=== PATIENT | male | born 1970 | race Caucasian/White ===

== ENCOUNTER 2016-12-18 12:57 | Observation (INO) | payer OTHER ==
[2016-12-18] MEDS ORDERED: ASPIRIN 81 MG TABLET, CHEWABLE PO ONE (12:58)
--- NOTE | 2016-12-18 13:05 | ER Document Report ---
ED General - General Chief Complaint: Chest Pain Stated Complaint: CHEST PAIN Mode of Arrival: Medic Information source: Patient Notes: 46 yr old male with hx of stent placement in august presents with complaitns of midsternal chest pressure resolved with nitro x3. pt is on plavix , denies nay fevers or chills. TRAVEL OUTSIDE OF THE [place] IN LAST 30 DAYS: No - HPI Onset: Just prior to arrival Onset/Duration: Sudden Quality of pain: Pressure Severity: Mild Pain Level: 1 Associated symptoms: Chest pain, Shortness of breath Exacerbated by: Denies Relieved by: Denies Similar symptoms previously: Yes Recently seen / treated by doctor: Yes - Related Data Allergies/Adverse Reactions: carbamazepine [From Tegretol] Allergy (Verified 12/18/16 13:00) phenobarbital Allergy (Verified 12/18/16 13:00) Past Medical History - Social History Smoking Status: Never Smoker Cigarette use (# per day): No Chew tobacco use (# tins/day): No Smoking Education Provided: No Family History: CAD Patient has suicidal ideation: No Patient has homicidal ideation: No Renal/ Medical History: Denies: Hx Peritoneal Dialysis Review of Systems - Review of Systems Notes: REVIEW OF SYSTEMS: CONSTITUTIONAL : Denies fever, chills, or sweats. Denies recent illness. EENT: Denies eye, ear, throat, or mouth pain or symptoms. Denies nasal or sinus congestion or discharge. Denies throat, tongue, or mouth swelling or difficulty swallowing. CARDIOVASCULAR: Admits to chest pain RESPIRATORY: Admits to shortness of breath GASTROINTESTINAL: Denies abdominal pain or distention. Denies nausea, vomiting , or diarrhea. Denies blood in vomitus, stools, or per rectum. Denies black, tarry stools. Denies constipation. GENITOURINARY: Denies difficulty urinating, painful urination, burning, frequency, blood in urine, or discharge. MUSCULOSKELETAL: Denies back or neck pain or stiffness. Denies joint pain or swelling. SKIN: Denies rash, lesions or sores. HEMATOLOGIC : Denies easy bruising or bleeding. LYMPHATIC: Denies swollen, enlarged glands. NEUROLOGICAL: Denies confusion or altered mental status. Denies passing out or loss of consciousness. Denies dizziness or lightheadedness. Denies headache. Denies weakness or paralysis or loss of use of either side. Denies problems with gait or speech. Denies sensory loss, numbness, or tingling. Denies seizures. PSYCHIATRIC: Denies anxiety or stress. Denies depression, suicidal ideation, or homicidal ideation. ALL OTHER SYSTEMS REVIEWED AND NEGATIVE. Dictation was performed using [employer] recognition software PHYSICAL EXAMINATION: GENERAL: Well-appearing, well-nourished and in no acute distress. HEAD: Atraumatic, normocephalic. EYES: Pupils equal round and reactive to light, extraocular movements intact, sclera anicteric, conjunctiva are normal. ENT: Nares patent, oropharynx clear without exudates. Moist mucous membranes. NECK: Normal range of motion, supple without lymphadenopathy LUNGS: Breath sounds clear to auscultation bilaterally and equal. No wheezes rales or rhonchi. HEART: Regular rate and rhythm without murmurs ABDOMEN: Soft, nontender, nondistended abdomen. No guarding, no rebound. No masses appreciated. Musculoskeletal: Normal range of motion, no pitting or edema. No cyanosis. NEUROLOGICAL: Cranial nerves grossly intact. Normal speech, normal gait. Normal sensory, motor exams PSYCH: Normal mood, normal affect. SKIN: Warm, Dry, normal turgor, no rashes or lesions noted. Physical Exam - Vital signs Vitals: Pulse Ox 100 12/18/16 12:57 Course - Re-evaluation Re-evalutation: 12/18/16 13:58 Cardiac enzymes EKG no no acute abnormality no chest pain is noted at this time I will observe patient in the hospital - Vital Signs Vital signs: Temp Pulse Resp BP Pulse Ox 97.8 F 100 12/18/16 12:59 12/18/16 12:57 - Laboratory Result Diagrams: 12/18/16 13:00 12/18/16 13:00 Laboratory results interpreted by me: 12/18/16 12/18/16 13:00 13:00 RBC 4.29 L Total Protein 6.0 L - Diagnostic Test Radiology reviewed: Image reviewed, Reports reviewed - EKG Interpretation by Me EKG shows normal: Sinus rhythm, Heath, Intervals, QRS Complexes Discharge - Discharge Clinical Impression: Chest pain Qualifiers: Chest pain type: unspecified Qualified Code(s): R07.9 - Chest pain, unspecified CAD (coronary artery disease) Qualifiers: Coronary Disease-Associated Artery/Lesion type: unspecified vessel or lesion type [place] vs. transplanted heart: [place] heart Associated angina: without angina Qualified Code(s): I25.10 - Atherosclerotic heart disease of [place] coronary artery without angina pectoris Condition: Stable Disposition: ADMITTED OBSERVATION Admitting Provider: Hospitalist Unit Admitted: Telemetry
[2016-12-18 13:11] LABS: ABSOLUTE EOSINOPHILS # (AUTO) 0.1 10^3/uL (0.0-0.6); ABSOLUTE LYMPHOCYTES (AUTO) 1.8 10^3/uL (0.5-4.7); ABSOLUTE MONOCYTES (AUTO) 0.6 10^3/uL (0.1-1.4); ABSOLUTE NEUT (AUTO) 5.4 10^3/uL (1.7-8.2); BASOPHILS % (AUTO) 0.6 % (0-2); EOSINOPHILS % (AUTO) 1.6 % (0-6); HEMATOCRIT 40.7 % (37.9-51.0); HGB HCT DIFFERENCE 1.3; LYMPHOCYTES % (AUTO) 22.6 % (13-45); MEAN CORPUSCULAR HEMOGLOBIN 32.6 pg (27.0-33.4); MEAN CORPUSCULAR HGB CONC 34.3 g/dL (32.0-36.0); MEAN CORPUSCULAR VOLUME 95 fl (80-97); MONOCYTES % (AUTO) 7.8 % (3-13); RED BLOOD COUNT 4.29 10^6/uL (4.35-5.55); RED CELL DISTRIBUTION WIDTH 13.2 % (11.5-14.0); SEGMENTED NEUTROPHILS % (AUTO) 67.4 % (42-78)
[2016-12-18 13:23] LABS: ALANINE AMINOTRANSFERASE 37 U/L (21-72); ALBUMIN 4.1 g/dL (3.5-5.0); ALKALINE PHOSPHATASE 66 U/L (38-126); ANION GAP 12 (5-19); ASPARTATE AMINO TRANSFERASE 17 U/L (17-59); BILIRUBIN,DIRECT 0.3 mg/dL (0.0-0.4); BILIRUBIN,TOTAL 0.4 mg/dL (0.2-1.3); BLOOD UREA NITROGEN 11 mg/dL (7-20); CALCIUM 9.6 mg/dL (8.4-10.2); CARBON DIOXIDE 23 mmol/L (22-30); CHLORIDE 107 mmol/L (98-107); CREATINE KINASE 147 U/L (55-170); CREATININE RESULT 0.54 mg/dL (0.52-1.25); GLUCOSE 110 mg/dL (75-110); POTASSIUM 4.2 mmol/L (3.6-5.0); SODIUM 142.2 mmol/L (137-145)
[2016-12-18 13:35] LABS: CREATINE KINASE MB 1.43 ng/mL (<4.55)
[2016-12-18 13:38] LABS: TROPONIN I < 0.012 ng/mL
--- NOTE | 2016-12-18 14:14 | RADIOLOGY REPORT (SQ) ---
EXAM DESCRIPTION: CHEST SINGLE VIEW COMPLETED DATE/TIME: 12/18/2016 1:55 pm REASON FOR STUDY: bed 1 cp COMPARISON: None. EXAM PARAMETERS: NUMBER OF VIEWS: One view. TECHNIQUE: Single frontal radiographic view of the chest acquired. RADIATION DOSE: NA LIMITATIONS: None. FINDINGS: LUNGS AND PLEURA: No opacities, masses or pneumothorax. No pleural effusion. MEDIASTINUM AND HILAR STRUCTURES: No masses. Contour normal. HEART AND VASCULAR STRUCTURES: Heart normal in size. Normal vasculature. BONES: No acute findings. HARDWARE: None in the chest. OTHER: No other significant finding. IMPRESSION: NO ACUTE RADIOGRAPHIC FINDING IN THE CHEST. TECHNICAL DOCUMENTATION: JOB ID: [id number]
--- NOTE | 2016-12-18 14:43 | RADIOLOGY REPORT (SQ) ---
EXAM DESCRIPTION: CTA CHEST COMPLETED DATE/TIME: 12/18/2016 2:36 pm REASON FOR STUDY: chest pain, recent travel COMPARISON: None. TECHNIQUE: CT scan of the chest performed using helical scanning technique with dynamic intravenous contrast injection. Images reviewed with lung, soft tissue and bone windows. Reconstructed coronal and sagittal MPR images reviewed. Additional 3 dimensional post-processing performed to develop Maximal Intensity Projection images (LA P). All images stored on PACS. All CT scanners at this facility use dose modulation, iterative reconstruction, and/or weight based d osing when appropriate to reduce radiation dose to as low as reasonably achievable (ALARA). [facility]: Dose Right [facility]: CareDose [facility]: Dose Right [facility]: Teradose 4D [facility]: Smart Technologies CONTRAST TYPE AND DOSE: Information not provided. Contrast bolus optimized for the pulmonary arteries. Not diagnostic for the aorta. RENAL FUNCTION: None required. The patient is less than 50 years old. RADIATION DOSE: Up-to-date CT equipment and radiation dose reduction techniques were employed. CTDIv ol: 16.5 - 18.1 mGy. DLP: 649 mGy-cm. . LIMITATIONS: None. FINDINGS: LUNGS AND PLEURA: No masses, infiltrates, pneumothorax. No pleural effusions, calcificati ons. AORTA AND GREAT VESSELS: No aneurysm. Contrast bolus not optimized for the aorta. HEART: No pericardial effusion. Probable coronary artery stents. PULMONARY ARTERIES: No emboli visualized in the main pulmonary arteries or the segmental branches. HILAR AND MEDIASTINAL STRUCTURES: No identified masses or abnormal nodes. HARDWARE: None in the chest. UPPER ABDOMEN: No significant findings. Limited exam. THYROID AND OTHER SOFT TISSUES: No masses. No adenopathy. BONES: No acute or significant finding. 3D MIPS: Confirm above findings. OTHER: No other significant finding. IMPRESSION: UNREMARKABLE CTA OF THE CHEST. NO PULMONARY EMBOLI. COMMENT: Quality ID # [id number]: Final reports with documentation of one or more dose reduction techniques (e.g., Automated exposure control, adjustment of the mA and/or kV according to patient size, use of iterative reconstruction technique) TECHNICAL DOCUMENTATION: JOB ID: [id number] [employer]- All Rights Reserved
[2016-12-18] MEDS ORDERED: ACETAMINOPHEN 325 MG TABLET PO PRN (16:54)
[2016-12-18] MEDS ORDERED: INFLUENZA ADLT QUAD (36MOS+) 2017-18 VAC 0.5 ML SYR IM PRN (16:54)
--- NOTE | 2016-12-18 16:55 | EKG REPORT ---
SEVERITY:- ABNORMAL ECG - SINUS RHYTHM INCOMPLETE RIGHT BUNDLE BRANCH BLOCK INFERIOR INFARCT, AGE INDETERMINATE : Confirmed by: Georgina Deluna MD 18-Dec-2016 16:55:04
[2016-12-18] MEDS ORDERED: ONDANSETRON HCL INJ/PF 4 MG/2 ML SDV IV PRN (17:07)
[2016-12-18] MEDS ORDERED: NITROGLYCERIN 0.4 MG/TAB 25 TAB/BOTTLE SL PRN (17:11)
--- NOTE | 2016-12-18 17:24 | PDOC H&P ---
History of Present Illness Admission Date/PCP: 12/18/16 15:06 NO LOCALMD Patient complains of: Chest pain History of Present Illness: MYRNA MILTON is a 46 year old male, with known coronary artery disease recently had a stent done 6 weeks ago in [place] presents to the hospital with chest pain that happened yesterday. The patient was working with a lot of physical work moving trash apparently started having pain on the left side of the chest radiating to the left upper extremity. There is associated mild shortness of breath and some sweating. No palpitation nausea or vomiting. No dizziness. No coughing. There is likewise no pleurisy. Patient went home and took nitroglycerin and the pain went away. Patient the following morning was concerned about what happened and therefore presents to the emergency room for evaluation. Patient was then referred for admission. There is no chills or fever associated. No trauma noted as well. Past Medical History Cardiac Medical History: Reports: Myocardial Infarction, Hyperlipidema Neurological Medical History: Reports: Seizures Musculoskeltal Medical History: Reports: Arthritis Past Surgical History Past Surgical History: Reports: Cardiac Catheterization, Orthopedic Surgery - Knee surgery, Tonsillectomy Social History Information Source: Patient Smoking Status: Former Smoker Frequency of Alcohol Use: None Hx Recreational Drug Use: No Drugs: None - Advance Directive Resuscitation Status: Full Code Family History Family History: Other - Unknown to the patient Parental Family History Reviewed: Yes - Unknown Children Family History Reviewed: Yes Sibling(s) Family History Reviewed.: Yes Medication/Allergy Home Medications: Aspirin [Ecotrin 81 mg EC Tablet] 81 mg PO DAILY 12/18/16 Atorvastatin Calcium [Lipitor 80 mg Tablet] 80 mg PO QPM 12/18/16 Cholecalciferol (Vitamin D3) [Vitamin D3 1000 Unit Tablet] 2,000 unit PO DAILY 12/18/16 Clopidogrel Bisulfate [Plavix 75 mg Tablet] 75 mg PO DAILY 12/18/16 Cyanocobalamin (Vitamin B-12) [Vitamin B-12 1000 mcg Tablet] 1,000 mcg PO DAILY 12/18/16 Metoprolol Tartrate [Lopressor 50 mg Tablet] 25 mg PO Q12 12/18/16 Phenytoin Sodium Extended [Dilantin 100 mg Capsule.er] 200 mg PO QAM 12/18/16 Phenytoin Sodium Extended [Dilantin 100 mg Capsule.er] 300 mg PO QHS 12/18/16 Allergies/Adverse Reactions: carbamazepine [From Tegretol] Allergy (Verified 12/18/16 13:00) phenobarbital Allergy (Verified 12/18/16 13:00) Review of Systems Constitutional: ABSENT: chills, fever(s), headache(s), weight gain, weight loss Eyes: ABSENT: visual disturbances Ears: ABSENT: hearing changes Nose, Mouth, and Throat: ABSENT: mouth pain, sore throat Cardiovascular: PRESENT: chest pain. ABSENT: dyspnea on exertion, edema, orthropnea, palpitations Respiratory: PRESENT: dyspnea. ABSENT: cough, hemoptysis, sputum Gastrointestinal: ABSENT: abdominal pain, bloating, constipation, diarrhea, hematemesis, hematochezia, melena, nausea, vomiting Genitourinary: ABSENT: dysuria, hematuria Musculoskeletal: ABSENT: back pain, joint swelling Integumentary: ABSENT: pruritus, rash, wounds Neurological: ABSENT: abnormal gait, abnormal speech, confusion, dizziness, focal weakness, syncope Psychiatric: ABSENT: anxiety, depression, homidical ideation, suicidal ideation Endocrine: ABSENT: cold intolerance, heat intolerance, polydipsia, polyphagia, polyuria Hematologic/Lymphatic: ABSENT: easy bleeding, easy bruising Physical Exam Vital Signs: Temp Pulse Resp BP Pulse Ox 97.3 F 72 15 109/65 100 12/18/16 16:01 12/18/16 16:01 12/18/16 16:01 12/18/16 16:01 12/18/16 16:01 Intake & Output 12/17/16 12/18/16 12/19/16 06:59 06:59 06:59 Weight 112.5 kg General appearance: PRESENT: no acute distress, well-developed, well-nourished Head exam: PRESENT: atraumatic, normocephalic Eye exam: PRESENT: conjunctiva pink, EOMI, PERRLA. ABSENT: scleral icterus Ear exam: PRESENT: normal external ear exam Mouth exam: PRESENT: moist, neck supple, tongue midline Throat exam: ABSENT: post pharyngeal erythema, tonsillar erythema Neck exam: ABSENT: carotid bruit, JVD, lymphadenopathy, thyromegaly Respiratory exam: PRESENT: clear to auscultation lorne, unlabored. ABSENT: rales , rhonchi, wheezes Cardiovascular exam: PRESENT: RRR. ABSENT: diastolic murmur, rubs, systolic murmur Pulses: PRESENT: normal dorsalis pedis pul Vascular exam: PRESENT: normal capillary refill GI/Abdominal exam: PRESENT: normal bowel sounds, soft. ABSENT: distended, guarding, mass, organolmegaly, rebound, tenderness Rectal exam: PRESENT: deferred Extremities exam: PRESENT: full ROM. ABSENT: calf tenderness, clubbing, pedal edema Neurological exam: PRESENT: alert, awake, oriented to person, oriented to place , oriented to time, oriented to situation Psychiatric exam: PRESENT: appropriate affect, normal mood. ABSENT: homicidal ideation, suicidal ideation Skin exam: PRESENT: dry, intact, warm. ABSENT: cyanosis, rash Results Impressions: Chest X-Ray 12/18/16 12:58 IMPRESSION: NO ACUTE RADIOGRAPHIC FINDING IN THE CHEST. Chest/Abdomen CTA 12/18/16 13:56 IMPRESSION: UNREMARKABLE CTA OF THE CHEST. NO PULMONARY EMBOLI. Assessment & Plan - Diagnosis (1) Chest pain Qualifiers: Chest pain type: unspecified Qualified Code(s): R07.9 - Chest pain, unspecified Is this a current diagnosis for this admission?: Yes (2) CAD (coronary artery disease) Qualifiers: Coronary Disease-Associated Artery/Lesion type: unspecified vessel or lesion type [place] vs. transplanted heart: [place] heart Associated angina: without angina Qualified Code(s): I25.10 - Atherosclerotic heart disease of [place] coronary artery without angina pectoris Is this a current diagnosis for this admission?: Yes (3) Hyperlipidemia Qualifiers: Hyperlipidemia type: unspecified Qualified Code(s): E78.5 - Hyperlipidemia , unspecified Is this a current diagnosis for this admission?: Yes (4) Seizure disorder Is this a current diagnosis for this admission?: Yes - Time Time Spent: 50 to 70 Minutes - Plan Summary Plan Summary: The patient will be admitted for observation. Serial enzymes will be obtained if negative we will proceed with a stress test. I will continue the patient's antiplatelet therapy, and add as as needed nitroglycerin . Supplemental oxygen will be given. DVT prophylaxis with Lovenox will be placed. Further testing depends on the initial evaluation as outlined above.
[2016-12-18 18:03] LABS: CREATINE KINASE MB 1.34 ng/mL (<4.55)
[2016-12-18 18:05] LABS: TROPONIN I < 0.012 ng/mL
[2016-12-18] MEDS: ATORVASTATIN CALCIUM 80 MG TABLET PO SCH (18:05)
[2016-12-18] MEDS: DOCUSATE SODIUM 100 MG CAPSULE PO SCH (18:05)
[2016-12-18] MEDS: METOPROLOL TARTRATE 50 MG TABLET PO SCH (21:20)
[2016-12-18] MEDS ORDERED: PHENYTOIN SODIUM EXTENDED 100 MG CAPSULE PO SCH (22:00)
[2016-12-19 00:01] LABS: CREATINE KINASE MB 1.13 ng/mL (<4.55)
[2016-12-19 00:04] LABS: TROPONIN I < 0.012 ng/mL
[2016-12-19] MEDS ORDERED: LANSOPRAZOLE 30 MG TAB.RAP.DR PO SCH (06:00)
[2016-12-19] MEDS ORDERED: PHENYTOIN SODIUM EXTENDED 100 MG CAPSULE PO SCH (08:00)
[2016-12-19] MEDS ORDERED: ENOXAPARIN SODIUM INJ 40 MG/0.4 ML DISP.SYRIN SUBCUT SCH (10:00)
[2016-12-19] MEDS ORDERED: ASPIRIN 81 MG TABLET, ENT COATED PO SCH (10:00)
[2016-12-19] MEDS ORDERED: CLOPIDOGREL BISULFATE 75 MG TABLET PO SCH (10:00)
[2016-12-19] MEDS: DOCUSATE SODIUM 100 MG CAPSULE PO SCH ×2 (10:09→17:37)
[2016-12-19] MEDS: METOPROLOL TARTRATE 50 MG TABLET PO SCH (10:10)
[2016-12-19] MEDS ORDERED: REGADENOSON INJ 0.4 MG/5 ML DISP.SYRIN IV ONE (10:35)
[2016-12-19] MEDS ORDERED: AMINOPHYLLINE INJ/PF 250 MG/10 ML SDV IV ONE (10:35)
[2016-12-19] MEDS ORDERED: PHENYTOIN SODIUM EXTENDED 100 MG CAPSULE PO ONE (12:30)
--- NOTE | 2016-12-19 13:29 | DRAGON STRESS TEST REPORT ---
INTRAVENOUS LEXISCAN CARDIOLITE STRESS TEST USING SINGLE PHOTON EMMISION COMPUTERIZED TOMOGRAPHIC. DATE OF PROCEDURE: December 19, 2016 INDICATION : Chest pain CARDIAC RISK FACTORS: Known CAD with stent placement, hypertension, dyslipidemia RESTING EKG: Sinus rhythm, incomplete right bundle branch block pattern, abnormal Q waves inferior lead suggestive of prior inferior myocardial infarction. STRESS EKG: No significant changes noted with LexiScan bolus REASON FOR TERMINATION: Protocol. PROCEDURE REPORT: Baseline heart rate 68 beats per minute with blood pressure of 130/76. Patient had no significant complaints. Heart rate at 2 minutes post bolus 107 with a blood pressure of 141/72. 3 minutes post bolus heart rate 81 with blood pressure of 140/67. No significant EKG changes were noted. Patient had no significant complaints during the procedure or postprocedure except for transient chest pain patient was also noted to have a seizure in the immediate recovery. No EKG changes or any significant cardiac dysrhythmia were however noted, so there was no symptom correlation with cardiac dysrhythmia or any EKG changes.. Patient injected with Aminophyllin 75 mg at 3 minutes or later after Lexiscan bolus. CONCLUSIONS: Normal EKG and hemodynamic response to IV LexiScan. NUCLEAR DATA: At rest the patient was given 14.97 millicuries of technetium 99 sestamibi injected intravenously. As per protocol rest gated SPECT images were obtained. Subsequently the patient was given intravenous LexiScan at a dose of 0.4 mg in 5 mL intravenously, followed by flush with normal saline. Subsequently the stress dose of 44.7 millicuries of technetium 99 sestamibi was injected intravenously. As per protocol stress gated images were obtained. NUCLEAR INTERPRETATION: Both raw and processed data were used for interpretation. Visual, qualitative, computer-generated quantitative data was used. There was good myocardial uptake of technetium compound. Motion artifact and soft tissue attenuations were noted. Increased visceral uptake was noted. No definitive areas of transient perfusion defect noted. No definitive areas of fixed perfusion defect or scars noted, except for a mild fixed defect in the mid inferior wall suggestive of a mild scar. EKG gated imaging showed LV EF at 47 %, rest and stress gated EF similar visually. Mild mid inferior wall hypokinesia noted. T. I D. ratio was 1.03. Lung heart ratio noted to be within normal limits 0.35. No significant extracardiac and abnormal radiotracer activities were noted. RV free wall uptake was noted to be WNL. IMPRESSION: Also refer to comments under nuclear interpretation. Also test results needs to be interpreted in the context of pretest probability. 1. There is no definitive scintigraphic evidence of LexiScan induced myocardial ischemia. 2. Mild fixed defect noted in the mid inferior wall suggestive of a mild myocardial infarction/scar, involving the mid inferior wall. 3. EKG gated imaging shows left ventricular ejection fraction of approximately 47 % With mild mid inferior wall hypokinesia. 4. Clinical correlation requested as occasionally worse disease or balanced ischemia could be missed. In approximately 10% of the cases Lexiscan may not cause adequate vasodilatory stress. RECOMMENDATIONS: Aggressive risk factor modification, medical therapy. Clinical correlation with echocardiogram derived ejection fraction. Inability to exercise by itself can lead to increased cardiovascular event risks. Consider cardiology consultation and or follow-up if clinically indicated. I AM AVAILABLE FOR CARDIOLOGY CONSULTATION AND FOLLOWUP IF REQUESTED BY PMD KARLOS King M.D. Survey Research Manager braiding machine tender, Board certified in cardiovascular diseases, Nuclear cardiology, Echocardiography Cardiac CT and cardiac MRI Ph. [phone] [facility] CENTERJamie
[2016-12-19] MEDS ORDERED: ONDANSETRON HCL INJ/PF 4 MG/2 ML SDV IV PRN (15:30)
[2016-12-19] MEDS ORDERED: INFLUENZA ADLT QUAD (36MOS+) 2017-18 VAC 0.5 ML SYR IM PRN (15:30)
--- NOTE | 2016-12-19 16:59 | PDOC DISCHARGE SUMMARY ---
General - Admit/Disc Date/PCP Admission Date/Primary Care Provider: 12/18/16 16:54 NO LOCALMD Discharge Date: 12/19/16 - Discharge Diagnosis (1) Chest pain Is this a current diagnosis for this admission?: Yes (2) CAD (coronary artery disease) Is this a current diagnosis for this admission?: Yes (3) Hyperlipidemia Is this a current diagnosis for this admission?: Yes (4) Seizure disorder Is this a current diagnosis for this admission?: Yes - Additional Information Resuscitation Status: Full Code Discharge Diet: Cardiac, Diabetic Discharge Activity: Activity As Tolerated, Balance Activity w/Rest Home Medications: Aspirin [Ecotrin 81 mg EC Tablet] 81 mg PO DAILY 12/18/16 Atorvastatin Calcium [Lipitor 80 mg Tablet] 80 mg PO QPM 12/18/16 Cholecalciferol (Vitamin D3) [Vitamin D3 1000 Unit Tablet] 2,000 unit PO DAILY 12/18/16 Clopidogrel Bisulfate [Plavix 75 mg Tablet] 75 mg PO DAILY 12/18/16 Cyanocobalamin (Vitamin B-12) [Vitamin B-12 1000 mcg Tablet] 1,000 mcg PO DAILY 12/18/16 Metoprolol Tartrate [Lopressor 50 mg Tablet] 25 mg PO Q12 12/18/16 Phenytoin Sodium Extended [Dilantin 100 mg Capsule.er] 200 mg PO QAM 12/18/16 Phenytoin Sodium Extended [Dilantin 100 mg Capsule.er] 300 mg PO QHS 12/18/16 Lansoprazole [Prevacid 30 mg Odt Tablet] 30 mg PO Q6AM #30 tab.rap 12/19/16 Additional Information: No driving or engaging in heavy physical activity until evaluated by a physician and Dilantin level is therapeutic History of Present Illness Patient complains of: Chest pain History of Present Illness: MYRNA MILTON is a 46 year old male, with known coronary artery disease recently had a stent done 6 weeks ago in [place] presents to the hospital with chest pain that happened yesterday. The patient was working with a lot of physical work moving trash apparently started having pain on the left side of the chest radiating to the left upper extremity. There is associated mild shortness of breath and some sweating. No palpitation nausea or vomiting. No dizziness. No coughing. There is likewise no pleurisy. Patient went home and took nitroglycerin and the pain went away. Patient the following morning was concerned about what happened and therefore presents to the emergency room for evaluation. Patient was then referred for admission. There is no chills or fever associated. No trauma noted as well. Hospital Course Hospital Course: The patient was admitted to telemetry under observation. Cardiac enzymes were obtained and they were negative for myocardial infarction. Supplemental oxygen was given. Patient was continued on his antiplatelet therapy and cardiac medications. The patient eventually had a stress test done showing no reversible ischemia. His course was noted for brief episode of seizure as he missed this medication Dilantin. An extra dose was given, no further seizure was noted after. Patient was offered to stay in the hospital for another 24 hours to recheck Dilantin level but he refused. He wanted to go home and stated that he does not have a license to drive and does not operate any vehicle or heavy equipment or engage in heavy physical work. He was advised not to operate any heavy equipment nor drive or engage in heavy physical activity or work. He was advised to have the level checked outpatient with his primary care physician on next visit. Physical Exam Vital Signs: Temp Pulse Resp BP Pulse Ox 98.1 F 79 18 107/67 97 12/19/16 16:14 12/19/16 16:14 12/19/16 16:14 12/19/16 16:14 12/19/16 16:14 Intake & Output 12/18/16 12/19/16 12/20/16 06:59 06:59 06:59 Intake Total 0 Balance 0 Weight 112.5 kg General appearance: PRESENT: no acute distress, cooperative Head exam: PRESENT: normocephalic Eye exam: PRESENT: EOMI Mouth exam: PRESENT: moist, neck supple Neck exam: ABSENT: JVD Respiratory exam: PRESENT: clear to auscultation lorne. ABSENT: rhonchi, wheezes Cardiovascular exam: PRESENT: RRR. ABSENT: gallop GI/Abdominal exam: PRESENT: soft. ABSENT: distended, tenderness Extremities exam: ABSENT: pedal edema Neurological exam: PRESENT: alert, awake, oriented to situation Skin exam: PRESENT: dry, warm. ABSENT: cyanosis Results Laboratory Results: 12/18/16 12/18/16 12/18/16 17:10 17:10 23:24 Creatine Kinase 112 105 CK-MB (CK-2) 1.34 Troponin I < 0.012 12/18/16 23:24 Creatine Kinase CK-MB (CK-2) 1.13 Troponin I < 0.012 Impressions: Chest X-Ray 12/18/16 12:58 IMPRESSION: NO ACUTE RADIOGRAPHIC FINDING IN THE CHEST. Chest/Abdomen CTA 12/18/16 13:56 IMPRESSION: UNREMARKABLE CTA OF THE CHEST. NO PULMONARY EMBOLI. Qualifiers PATEINT BEING DISCHARGED WITH ANY OF THE FOLLOWING DIAGNOSIS?: No Plan Discharge Plan: Follow-up with primary care physician in 1 week. Follow-up with Dr. Leyva in 2 weeks. Time Spent: Less than 30 Minutes
[2016-12-19 17:12] VITALS: BP 109/65
[2016-12-19] MEDS: ATORVASTATIN CALCIUM 80 MG TABLET PO SCH (17:37)
[2016-12-20] MEDS ORDERED: LANSOPRAZOLE 30 MG TAB.RAP.DR PO SCH (06:00)
== END 2016-12-19 18:20 | disposition home or self-care (01) ==
LOC: ER 12:57 → EH 15:06 → UNDOADMOB 15:06 → 5 15:48 → EH 15:48 → 5 16:54
PROC: 3E0234Z Introduction of Serum, Toxoid and Vaccine into Muscle, Percutaneous Approach (ICD-10-PCS; principal; 2016-12-19)
DX: R07.9 Chest pain, unspecified (principal); I25.10 Atherosclerotic heart disease of native coronary artery without angina pectoris; E78.5 Hyperlipidemia, unspecified; G40.909 Epilepsy, unspecified, not intractable, without status epilepticus; R06.00 Dyspnea, unspecified; I25.2 Old myocardial infarction; Z79.899 Other long term (current) drug therapy; Z79.82 Long term (current) use of aspirin; Z79.02 Long term (current) use of antithrombotics/antiplatelets; Z23 Encounter for immunization; Z87.891 Personal history of nicotine dependence; Z82.49 Family history of ischemic heart disease and other diseases of the circulatory system
CPT/HCPCS: 93005; 99285; 36415; 82553; 82550; 80185; 85025; 80053; 84484; 93017; 71010; 78452; 71275; 90686; 93010; G0378 ×2; A9500; J2785; J1650; J3490 ×2; J0280; Q9969

== ENCOUNTER 2017-06-09 23:37 | Emergency (ER) | payer OTHER ==
[2017-06-10] MEDS ORDERED: NITROGLYCERIN 2% OINTMENT 1 GM PACKET TP ONE (00:06)
--- NOTE | 2017-06-10 00:07 | ER Document Report ---
ED Cardiac - General Stated Complaint: CHEST PAIN Time Seen by Provider: 06/09/17 23:49 Notes: Patient is a 47-year-old male with a past medical history significant for MD in October with a stent placed who presents emergency department with a chief complaint of chest pain. Patient states that this started this evening approximately 45 minutes prior to calling EMS. He states that he was not doing any particular disagreement with sudden onset tightness with diaphoresis and left arm pain radiating to his hand. States that the pain in his arms but a 5 out of 5 in his chest tightness 8 out of 5 in severity. States that he took 2 sublingual nitro which brought his pain from a 5 out of 5 to 3 out of 5 and 911 instruction to take 4 baby aspirin. At this time he states that his pain is approximately a 1 or 2 out of 5. That is not pain-free. He denies any associated nausea, cough, dyspnea on exertion. Denies any recent fevers or chills, upper respiratory illness. Denies any chest wall tenderness. Recent hospital admission for chest pain evaluation December 2016 with a stress test that revealed inferior wall previous infarct and ejection fraction 47%. Also had a CTA of the chest was negative for PE PCP is [facility] in cardiology is with the [facility] in [place] Past medical history significant for coronary artery disease with history of stable angina with home sublingual nitro, hypertension, hyperlipidemia, history of seizures versus pseudoseizures recently taken off his Dilantin Past surgical history admits to previous cath back in October, tonsils and adenoids Social history admits to former tobacco user and quit in 2008, former alcohol user in the for about 18 months. 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 TRAVEL OUTSIDE OF THE [place] IN LAST 30 DAYS: No - Related Data Allergies/Adverse Reactions: carbamazepine [From Tegretol] Allergy (Verified 12/18/16 13:00) phenobarbital Allergy (Verified 12/18/16 13:00) Past Medical History - Social History Smoking Status: Former Smoker Family History: Other - Unknown to the patient - Past Medical History Cardiac Medical History: Reports: Hx Heart Attack, Hx Hypercholesterolemia, Hx Hypertension Neurological Medical History: Reports: Hx Seizures Renal/ Medical History: Denies: Hx Peritoneal Dialysis Musculoskeltal Medical History: Reports Hx Arthritis Past Surgical History: Reports: Hx Cardiac Catheterization, Hx Cardiac Surgery, Hx Orthopedic Surgery - Knee surgery, Hx Tonsillectomy - Immunizations Hx Diphtheria, Pertussis, Tetanus Vaccination: Yes Physical Exam - Vital signs Vitals: Resp Pulse Ox 12 99 06/09/17 23:54 06/09/17 23:54 - Notes Notes: PHYSICAL EXAM GENERAL: Alert, interacts well. HEAD: Normocephalic, atraumatic. EYES: Pupils equal, round, and reactive to light. Extraocular movements intact. ENT: Oral mucosa moist, tongue midline. NECK: Full range of motion. Supple. Trachea midline. LUNGS: Clear to auscultation bilaterally, no wheezes, rales, or rhonchi. No respiratory distress. HEART: Regular rate and rhythm. No murmurs, gallops, or rubs. ABDOMEN: Soft, nondistended, nontender. No guarding, rebound, or rigidity.. Bowel sounds present in all 4 quadrants. EXTREMITIES: Moves all 4 extremities spontaneously. No edema, radial and dorsalis pedis pulses 2/4 bilaterally. No cyanosis. NEUROLOGICAL: Alert and oriented x4. Normal speech. PSYCH: Normal affect, normal mood. SKIN: Warm, dry, normal turgor. No rashes or lesions noted. Course - Re-evaluation Re-evalutation: 06/10/17 05:25 Patient is very well in appearance, vitals within normal limits. Presentation is consistent with stable angina. HEART score of 4 without EKG evidence of STEMI. Complete resolution of his pain with combination of sublingual nitro x2, 324mg asa [employer] and nitro paste here in the ED. PE seems unlikely given clinical history, absence of tachycardia or dyspnea. Well's score of 0. PERC negative. CXR without evidence of pneumothorax or pneumonia. No widened mediastinum. Aortic dissection also seems unlikely given history, symmetric pulses, CXR, and vitals. Patients response to nitro and clinical history indicates need for an additional stress test despite negative results in 12/2016 (evidence of inferior wall previous MD/scar tissue). Patient is however declining admission and [facility]. Discussed concern that his risk factors, clinical history and improvement with ED treatments with a HEART score of 4 indicates risk of 12-16.6% of adverse cardiac event. Patient states he understands and verbally repeated back to me concerns for cardiac event if he leaves. At this time will discharge with return precautions and follow-up recommendations. Verbal discharge instructions given a the bedside and opportunity for questions given. Medication warnings reviewed. Patient is in agreement with this plan and has verbalized understanding of return precautions and the need for primary care follow-up in the next 24-72 hours. - Vital Signs Vital signs: Temp Pulse Resp BP Pulse Ox 97.7 F 14 113/77 96 06/10/17 05:57 06/10/17 05:31 06/10/17 05:31 06/10/17 05:31 - Laboratory Result Diagrams: 06/10/17 00:20 06/10/17 00:20 Laboratory results interpreted by me: 06/10/17 06/10/17 00:20 00:20 RBC 4.34 L Chloride 110 H Glucose 112 H - Diagnostic Test Radiology reviewed: Image reviewed, Reports reviewed - EKG Interpretation by Me EKG shows normal: Sinus rhythm Rate: Normal Rhythm: NSR When compared to previous EKG there are: No significant change Discharge - Discharge Clinical Impression: CAD (coronary artery disease) Qualifiers: Coronary Disease-Associated Artery/Lesion type: unspecified vessel or lesion type [place] vs. transplanted heart: [place] heart Associated angina: with stable angina Qualified Code(s): I25.118 - Atherosclerotic heart disease of [place] coronary artery with other forms of angina pectoris Condition: Stable Disposition: HOME, SELF-CARE Additional Instructions: You were seen today for chest pain. This is related to your heart disease. However, based on your cardiac enzyme testing, chest x-ray, and EKG it does not appear that it is from an immediately life-threatening cause at this time. Although your testing here is normal is critical that you follow-up with your primary care physician for continued evaluation of this chest pain and possible stress testing. I recommended you see your physician within the next 24-48 hours to be evaluated for consideration of a stress test. Please return to emergency department immediately if you have worsening of your chest pain, shortness of breath, vomiting, become unable to exert yourself due to pain or difficulty breathing, you pass out, or have any pain that radiates into your arms, jaw, or back. Please also return if you have any additional symptoms that are concerning to you. Referrals: [facility] [Provider Group] - 06/12/17
[2017-06-10 00:39] LABS: ABSOLUTE BASOPHILS # (AUTO) 0.1 10^3/uL (0.0-0.2); ABSOLUTE EOSINOPHILS # (AUTO) 0.3 10^3/uL (0.0-0.6); ABSOLUTE LYMPHOCYTES (AUTO) 2.6 10^3/uL (0.5-4.7); ABSOLUTE MONOCYTES (AUTO) 0.6 10^3/uL (0.1-1.4); ABSOLUTE NEUT (AUTO) 4.7 10^3/uL (1.7-8.2); BASOPHILS % (AUTO) 0.9 % (0-2); EOSINOPHILS % (AUTO) 3.5 % (0-6); HEMATOCRIT 40.3 % (37.9-51.0); HEMOGLOBIN 13.5 g/dL (13.5-17.0); LYMPHOCYTES % (AUTO) 31.3 % (13-45); MEAN CORPUSCULAR HGB CONC 33.4 g/dL (32.0-36.0); MEAN CORPUSCULAR VOLUME 93 fl (80-97); MONOCYTES % (AUTO) 7.5 % (3-13); PLATELET COUNT 210 10^3/uL (150-450); RED BLOOD COUNT 4.34 10^6/uL (4.35-5.55); RED CELL DISTRIBUTION WIDTH 13.6 % (11.5-14.0); SEGMENTED NEUTROPHILS % (AUTO) 56.8 % (42-78); TOTAL CELLS COUNTED % (AUTO) 100 %; WHITE BLOOD COUNT 8.3 10^3/uL (4.0-10.5)
--- NOTE | 2017-06-10 00:51 | RADIOLOGY REPORT (SQ) ---
EXAM DESCRIPTION: CHEST SINGLE VIEW CLINICAL HISTORY: 47 years Male, chest pain COMPARISON: 10.8.17 NUMBER OF VIEWS/TECHNIQUE: 1/AP LIMITATIONS: None. FINDINGS: Normal lung volume, clear parenchyma, normal cardiac silhouette, and intact bony thorax. IMPRESSION: No acute cardiopulmonary findings.
[2017-06-10 00:57] LABS: ALBUMIN 3.9 g/dL (3.5-5.0); ALKALINE PHOSPHATASE 55 U/L (38-126); ANION GAP 9 (5-19); ASPARTATE AMINO TRANSFERASE 36 U/L (17-59); BILIRUBIN,DIRECT 0.3 mg/dL (0.0-0.4); BILIRUBIN,TOTAL 0.5 mg/dL (0.2-1.3); BLOOD UREA NITROGEN 16 mg/dL (7-20); CALCIUM 9.3 mg/dL (8.4-10.2); CARBON DIOXIDE 24 mmol/L (22-30); CHLORIDE 110 mmol/L (98-107); GLUCOSE 112 mg/dL (75-110); POTASSIUM 3.8 mmol/L (3.6-5.0); TOTAL PROTEIN 6.3 g/dL (6.3-8.2)
[2017-06-10 01:04] LABS: ALANINE AMINOTRANSFERASE 33 U/L (21-72); CREATINE KINASE 76 U/L (55-170)
[2017-06-10 01:15] LABS: TROPONIN I < 0.012 ng/mL
[2017-06-10 05:57] VITALS: BP 113/77
== END 2017-06-10 06:03 | disposition home or self-care (01) ==
LOC: ER 23:37
DX: I25.118 Atherosclerotic heart disease of native coronary artery with other forms of angina pectoris (principal); R07.9 Chest pain, unspecified; I25.2 Old myocardial infarction; R61 Generalized hyperhidrosis; M79.602 Pain in left arm; M79.642 Pain in left hand; I10 Essential (primary) hypertension; Z87.891 Personal history of nicotine dependence
CPT/HCPCS: 36415; 71045; 80053; 82550; 82553; 84484; 85025; 99285

== ENCOUNTER 2017-08-18 18:18 | Inpatient (IN) | payer OTHER ==
--- NOTE | 2017-08-18 18:31 | ER Document Report ---
ED Medical Screen (RME) - General Stated Complaint: POSSIBLE STROKE Time Seen by Provider: 08/18/17 18:26 Mode of Arrival: Medic Information source: Patient, Emergency Med Personnel TRAVEL OUTSIDE OF THE [place] IN LAST 30 DAYS: No - HPI Onset: Just prior to arrival - 1730 Onset/Duration: Sudden Context: Patient presents to the emergency department via EMS for complaints that he was watching TV at approximately 1730 stood up and collapsed. No change in LOC, family reported it was like his legs gave out. Family reported history of GA and high blood pressure EMS reports poor historians. Patient with left-sided weakness left-sided droop. Difficulty speaking. Patient to CT. Stroke protocol initiated. Quality of pain: No pain Associated Symptoms: None - Related Data Allergies/Adverse Reactions: carbamazepine [From Tegretol] Allergy (Verified 12/18/16 13:00) phenobarbital Allergy (Verified 12/18/16 13:00) Past Medical History - Past Medical History Cardiac Medical History: Reports: Hx Heart Attack, Hx Hypercholesterolemia, Hx Hypertension Neurological Medical History: Reports: Hx Seizures Renal/ Medical History: Denies: Hx Peritoneal Dialysis Musculoskeltal Medical History: Reports Hx Arthritis Past Surgical History: Reports: Hx Cardiac Catheterization, Hx Cardiac Surgery, Hx Orthopedic Surgery - Knee surgery, Hx Tonsillectomy - Immunizations Hx Diphtheria, Pertussis, Tetanus Vaccination: Yes History of Influenza Vaccine for 12/2016 - 05/2017 Season: No
--- NOTE | 2017-08-18 18:36 | RADIOLOGY REPORT (SQ) ---
EXAM DESCRIPTION: CT HEAD WITHOUT COMPLETED DATE/TIME: 08/18/2017 6:27 pm REASON FOR STUDY: STROKE ALERT COMPARISON: None. TECHNIQUE: Axial images acquired through the brain without intravenous contrast. Images reviewed wi th bone, brain and subdural windows. Images stored on PACS. All CT scanners at this facility use dose modulation, iterative reconstruction, and/or weight based d osing when appropriate to reduce radiation dose to as low as reasonably achievable (ALARA). [facility]: Dose Right [facility]: CareDose [facility]: Dose Right [facility]: Teradose 4D [facility]: [employer] RADIATION DOSE: mGy. LIMITATIONS: None. FINDINGS: VENTRICLES: Normal size and contour. CEREBRUM: No masses. No hemorrhage. No midline shift. No evidence for acute infarction. Normal gra y/white matter differentiation. No areas of low density in the white matter. CEREBELLUM: No masses. No hemorrhage. No alteration of density. No evidence for acute infarction. EXTRAAXIAL SPACES: No fluid collections. No masses. ORBITS AND GLOBE: No intra- or extraconal masses. Normal contour of globe without masses. CALVARIUM: No fracture. PARANASAL SINUSES: No fluid or mucosal thickening. SOFT TISSUES: No mass or hematoma. OTHER: No other significant finding. IMPRESSION: NORMAL BRAIN CT WITHOUT CONTRAST. EVIDENCE OF ACUTE STROKE: NO. COMMENT: Pertinent positive or negative findings of the imaging study reported as a CRITICAL EXAM t o THE EMERGENCY DEPARTMENT at18:30 on 08/18/2017. Category of Critical Exam: CODE STROKE Quality ID # [id number]: Final reports with documentation of one or more dose reduction techniques (e.g., Au tomated exposure control, adjustment of the mA and/or kV according to patient size, use of iterative reconstruction technique) TECHNICAL DOCUMENTATION: JOB ID: [id number] [employer]- All Rights Reserved Reading location - IP/workstation name: [email or web address]
--- NOTE | 2017-08-18 18:37 | RADIOLOGY REPORT (SQ) ---
EXAM DESCRIPTION: CHEST SINGLE VIEW COMPLETED DATE/TIME: 08/18/2017 6:27 pm REASON FOR STUDY: STROKE ALERT COMPARISON: 06/10/2017 EXAM PARAMETERS: NUMBER OF VIEWS: One view. TECHNIQUE: Single frontal radiographic view of the chest acquired. RADIATION DOSE: NA LIMITATIONS: None. FINDINGS: LUNGS AND PLEURA: Retrocardiac airspace opacity. Lungs and pleural spaces otherwise clear . MEDIASTINUM AND HILAR STRUCTURES: No masses. Contour normal. HEART AND VASCULAR STRUCTURES: Heart normal in size. Normal vasculature. BONES: No acute findings. HARDWARE: None in the chest. OTHER: No other significant finding. IMPRESSION: RETROCARDIAC AIRSPACE OPACITY COULD REPRESENT SUBSEGMENTAL ATELECTASIS, ASPIRATION, OR P NEUMONIA. CORRELATE WITH RESPIRATORY SYMPTOMS. TECHNICAL DOCUMENTATION: JOB ID: [id number] [employer]- All Rights Reserved Reading location - IP/workstation name: [email or web address]
[2017-08-18 18:42] LABS: ABSOLUTE BASOPHILS # (AUTO) 0.1 10^3/uL (0.0-0.2); ABSOLUTE EOSINOPHILS # (AUTO) 0.1 10^3/uL (0.0-0.6); ABSOLUTE LYMPHOCYTES (AUTO) 1.8 10^3/uL (0.5-4.7); ABSOLUTE MONOCYTES (AUTO) 0.5 10^3/uL (0.1-1.4); ABSOLUTE NEUT (AUTO) 5.8 10^3/uL (1.7-8.2); EOSINOPHILS % (AUTO) 1.7 % (0-6); LYMPHOCYTES % (AUTO) 21.5 % (13-45); MEAN CORPUSCULAR HGB CONC 33.5 g/dL (32.0-36.0); MEAN CORPUSCULAR VOLUME 93 fl (80-97); MONOCYTES % (AUTO) 6.4 % (3-13); PLATELET COUNT 244 10^3/uL (150-450); RED BLOOD COUNT 3.88 10^6/uL (4.35-5.55); RED CELL DISTRIBUTION WIDTH 13.6 % (11.5-14.0); SEGMENTED NEUTROPHILS % (AUTO) 69.4 % (42-78); TOTAL CELLS COUNTED % (AUTO) 100 %; WHITE BLOOD COUNT 8.4 10^3/uL (4.0-10.5)
[2017-08-18 18:45] LABS: INTERNATIONAL RATION (INR) 0.99
[2017-08-18 18:46] LABS: PARTIAL THROMBOPLASTIN TIME 26.1 SEC (23.5-35.8)
[2017-08-18 18:48] LABS: PROTHROMBIN TIME 13.6 SEC (11.4-15.4)
[2017-08-18 19:02] LABS: ALANINE AMINOTRANSFERASE 32 U/L (21-72); ALKALINE PHOSPHATASE 57 U/L (38-126); ANION GAP 11 (5-19); ASPARTATE AMINO TRANSFERASE 28 U/L (17-59); BILIRUBIN,DIRECT 0.2 mg/dL (0.0-0.4); BILIRUBIN,TOTAL 0.4 mg/dL (0.2-1.3); BLOOD UREA NITROGEN 11 mg/dL (7-20); CALCIUM 9.5 mg/dL (8.4-10.2); CARBON DIOXIDE 27 mmol/L (22-30); CHLORIDE 106 mmol/L (98-107); CREATINE KINASE 144 U/L (55-170); GLUCOSE 109 mg/dL (75-110); SODIUM 144.4 mmol/L (137-145); TOTAL PROTEIN 6.2 g/dL (6.3-8.2)
[2017-08-18] MEDS ORDERED: ALTEPLASE INJ 100 MG VIAL IV ONE (19:04)
--- NOTE | 2017-08-18 19:08 | ER Document Report ---
ED Neuro Symptoms/Deficit - General Mode of Arrival: Medic Information source: Patient, Emergency Med Personnel Notes: Patient is a 47 year old male with cardiac stents (last placed October of 2016), hypertension and a history of LA presents to the emergency department via EMS complaining of stroke like symptoms onset around 1730 today. According to family , patient was watching TV when he stood up and collapsed. Family denies loss of consciousness and states it appears like the patient's legs gave out. EMS reports left sided facial droop as well as left sided weakness. Patient denies a history of strokes or aneurysms. Patient is currently prescribed Metropolol and Plavix. TRAVEL OUTSIDE OF THE [place] IN LAST 30 DAYS: No <MAGUE KAUFFMAN - Last Filed: 08/19/17 00:13> <SREEDHAR STARK - Last Filed: 08/19/17 00:46> - General Chief Complaint: S/S of Possible Stroke Stated Complaint: POSSIBLE STROKE Time Seen by Provider: 08/18/17 18:26 - Related Data Allergies/Adverse Reactions: cabbage Allergy (Verified 08/18/17 21:34) RAPID HEARTBEAT carbamazepine [From Tegretol] Allergy (Verified 08/18/17 21:34) phenobarbital Allergy (Verified 08/18/17 21:34) Past Medical History - General Information source: Patient, Emergency Med Personnel - Social History Smoking Status: Never Smoker Cigarette use (# per day): No Chew tobacco use (# tins/day): No Smoking Education Provided: No Frequency of alcohol use: None Family History: Other - Unknown to the patient - Past Medical History Cardiac Medical History: Reports: Hx Heart Attack, Hx Hypercholesterolemia, Hx Hypertension, Other - Cardiac stents - placed October 2016 Neurological Medical History: Reports: Hx Seizures Musculoskeltal Medical History: Reports Hx Arthritis Past Surgical History: Reports: Hx Cardiac Catheterization, Hx Cardiac Surgery, Hx Orthopedic Surgery - Knee surgery, Hx Tonsillectomy - Immunizations Hx Diphtheria, Pertussis, Tetanus Vaccination: Yes <MAGUE KAUFFMAN - Last Filed: 08/19/17 00:13> Review of Systems - Review of Systems Constitutional: No symptoms reported EENT: No symptoms reported Cardiovascular: No symptoms reported Respiratory: No symptoms reported Gastrointestinal: No symptoms reported Genitourinary: No symptoms reported Male Genitourinary: No symptoms reported Musculoskeletal: No symptoms reported Skin: No symptoms reported Hematologic/Lymphatic: No symptoms reported Neurological/Psychological: See HPI, Weakness -: Yes All other systems reviewed and negative <MAGUE KAUFFMAN - Last Filed: 08/19/17 00:13> Physical Exam - Vital signs Vitals: Pulse Ox 98 08/18/17 18:26 - Notes Notes: GENERAL: Alert and oriented. No acute distress. HEAD: Normocephalic, atraumatic. Left sided facial droop. EYES: Pupils equal, round, and reactive to light. Extraocular movements intact. ENT: Oral mucosa moist, tongue midline. NECK: Full range of motion. Supple. Trachea midline. LUNGS: Clear to auscultation bilaterally, no wheezes, rales, or rhonchi. No respiratory distress. HEART: Regular rate and rhythm. No murmurs, gallops, or rubs. ABDOMEN: Soft, non-tender. Non-distended. Bowel sounds present in all 4 quadrants. EXTREMITIES: Moves all 4 extremities spontaneously. Bilateral knee brace. No edema, radial and dorsalis pedis pulses 2/4 bilaterally. No cyanosis. NEUROLOGICAL: Alert and oriented x3. Profound left sided facial droop and left sided weakness of extremities. See NIH scale for more detailed examination. PSYCH: Normal affect, normal mood. SKIN: Warm, dry, normal turgor. No rashes or lesions noted. <MAGUE KAUFFMAN - Last Filed: 08/19/17 00:13> - Vital signs Vitals: Pulse Ox 98 08/18/17 18:26 <SREEDHAR STARK - Last Filed: 08/19/17 00:46> Course - Vital Signs Vital signs: Temp Pulse Resp BP Pulse Ox 98 08/18/17 18:26 - Laboratory Result Diagrams: 08/18/17 18:30 08/18/17 18:30 Laboratory results interpreted by me: 08/18/17 08/18/17 18:30 18:31 RBC 3.88 L Hgb 12.0 L Hct 36.0 L POC Glucose 116 H <MAGUE KAUFFMAN - Last Filed: 08/19/17 00:13> - Re-evaluation Re-evalutation: 08/18/17 21:05 Patient presents with acute stroke symptoms, initial NIH was 9, last known well was approximately 45 minutes prior to arrival, patient does not have any contraindications, I discussed the risks and benefits of TPA with the patient, he is aware that there is a 6-8% risk of intracranial hemorrhage, patient accepts TPA. CBC shows mild anemia with a hemoglobin of, no leukocytosis, coags normal, CMP shows slightly elevated glucose at 116, this is not fasting, chemistries otherwise unremarkable, cardiac enzymes negative, CT scan of the head shows no acute process, chest x-ray shows retrocardiac airspace opacity which could represent subsegmental atelectasis, aspiration or pneumonia. Patient does not have any respiratory symptoms. This is not a contraindication to TPA. Patient was given TPA, patient has improved significantly, repeat NIH shows a residual NIH stroke scale of 1. Patient does still have slight slurring of his speech. Patient was discussed with Dr. Saucedo who agrees to admit the patient to his service in the ICU. - Vital Signs Vital signs: Temp Pulse Resp BP Pulse Ox 98.9 F 92 11 L 122/80 98 08/18/17 18:29 08/18/17 20:41 08/18/17 20:41 08/18/17 20:41 08/18/17 20:41 - Laboratory Result Diagrams: 08/18/17 18:30 08/18/17 18:30 Laboratory results interpreted by me: 08/18/17 08/18/17 08/18/17 18:30 18:30 18:31 RBC 3.88 L Hgb 12.0 L Hct 36.0 L POC Glucose 116 H Total Protein 6.2 L - EKG Interpretation by Me Additional EKG results interpreted by me: 08/18/17 21:06 EKG shows sinus rhythm at a rate of 99, incomplete right bundle branch block, no ST segment elevations or depressions, there are T-wave inversions noted in lead III, aVF per my interpretation. <SREEDHAR STARK - Last Filed: 08/19/17 00:46> Critical Care Note - Critical Care Note Total time excluding time spent on procedures (mins): 45 <SREEDHAR STARK - Last Filed: 08/19/17 00:46> ED Alteplase Inc/Exc Criteria - Date/Time patient last known well: Date/Time: 08/18/2017 17:30 - Date/Time patient arrived in ED: _: 08/18/2017 18:19 - Inclusion Criteria: 1: Patient presented to ED within 3 hours of acute ischemic stroke symptom onset ? -: Yes 2: Did baseline CT exclude intracranial hemorrhage and/or other risk factors? -: Yes 3: Is the age of the patient 18 years of age or greater? -: Yes : If any of the above questions are answered "NO" then stop, patient is not a candidate for Alteplase, : If all of the above questions are answered "YES" then continue with Exclusion Criteria. - Exclusion Criteria: 1: Is there evidence of intracranial hemorrhage on baseline CT? -: No 2: Is there suspicion of subarachnoid hemorrhage (even if CT negative)? -: No 3: Is there a history of serious head trauma, recent previous stroke or LA within 3 months? -: No 4: Does the patient have a clinical presentation consistent with LA or post-LA pericarditis? -: No 5: Is there history of intracranial hemorrhage? -: No 6: On repeated measurement is Systolic BP greater than 185mmHg or Diastolic BP greater that 110 mmHg and is aggressive treatment needed to reduce blood pressure to these limits (e.g. constant infusion of an anti-hypertensive)? -: No 7: Did the patient awake with stroke symptoms? -: No 8: Has the patient had a lumbar puncture or an arterial puncture at a non- compressile site within 7 days? -: No 9: With in the last 14 days did the patient have surgery or major trauma? -: No 10: Is the patient or less than 2 weeks? -: No 11: Was there any active bleeding or acute trauma? -: No 12: Does the patient have intracranial neoplasm, arteriovenous malformation or aneurysm? -: No 13: Does the patient have abnormal glucose (less than 50 or greater than 400mg/ dl)? Record glucose in Comment. -: No 14: Patient has rapidly improving symptoms at the time Alteplase is to be Administered. -: No 15: Does the patient have any risks for bleeding, including but not limited to: a.: Current use of Coumadin with PT greater than 15 seconds or INR greater than 1.7. b.: Current use of Pradaxa (Dabigatran). c.: Heparin administereed within the past 48 hours and PTT elevated. d.: Platelet count less than 100,000/mm. e.: Major surgery or serious trauma within 14 days. f.: Gastrointestinal or gynecological urinary bleeding within 14 days. g.: Myocardial Infarction (LA) within 3 months. -: No : If the answer to any of the above questions is "YES" then stop, the patient is not a candidate for Alteplase. : If the answer to all of the above questions is "NO" then the patient may be eligible for the Administration of Alteplase. : If the patient is noted to have seizure activity at onset of Stroke symptoms; Consult Neurologist for further evaluation. - The patient is: -: Included and is eligible to receive Alteplase. *Initiate bed placement at higher level of care* --: Yes Reviewd risks & benefits of thrombolytic therapy: I have reviewed the risks and benefits of thrombolytic therapy with the patient and/or his/her family. Yes -: Excluded and not eligible to receive Alteplase for the above exclusions. --: No -: Excluded and not eligible to receive Alteplase for other reasons (specify in comments): --: No - Diagnosis of TIA: -: Patient presented with transient symptoms that are now resolved and no other neurologic findings are currently present. List symptoms in comments. -: No - left sided facial droop, left sided UE and LE weakness. Slurred speech -: Patient is NOT a candidate for tPA. -: No -: ____(put name in comment) has been consulted for admission and continued evaluation of risk factor assessment. <MAGUE KAUFFMAN - Last Filed: 08/19/17 00:13> ED NIH Stroke Scale - NIH Stroke Scale When completed:: Before Alteplase *: 1. NIH scale should be completed with appropriate accompanying assessment tools. *: 2. The NIH should reflect what the patient is capable of doing and should not be coached by the clinician. 1a. Level of Consciousness: 0=Alert;keenly responsive -: 1=Drowsy -: 2=Obtunded -: 3=Coma/unresponsive or reflex to noxious stimuli. 1a. Responses: 0 1b. Orientation Questions: a. What month is it? -: b. How old are you? -: 0=Answers both questions correctly. -: 1=Answers one question correctly or patient is intubated or has orotracheal trauma. -: 2=Answers neither question correctly. 1b. Responses: 0 1c. Response to commands: a. Open and close eyes? -: b. Magnetic Resonance Imaging Coordinator and release hand? -: Credit is given despite weakness. Demonstration of task is permitted. Substitute command if hands cannot be used. -: 0=Performs both tasks correctly -: 1=Performs one task correctly -: 2=Performs neither task correctly 1c. Responses: 0 2. Gaze: Establish eye contact and instruct patient to "Follow my finger" -: 0=Normal -: 1=Partial gaze palsy. Gaze is abnormal in one or both eyes, but where forced deviation or total gaze paresis is not present. -: 2=Forced deviation or total gaze paresis. 2. Responses: 0 3. Visual Davis: Sees fingers in all four quadrants. -: 0=No visual loss. -: 1=Partial hemianopsia. -: 2=Complete hemianopsia. -: 3=Bilateral hemianopsia (including Cortical blindness) 3. Responses: 0 4. Facial Movement: Instruct patient to: -: a. Show me your teeth -: b. Raise your eyebrows -: c. Close your eyes -: d. Smile -: 0=Normal symmetrical movement -: 1=Minor paralysis (flattened nasolabial fold, asymmetry on smiling). -: 2=Partial paralysis (total or near total paralysis of lower face). -: 3=Complete paralysis of upper and lower face 4. Responses: 2 - left 5. Motor functions (left arm): Alternate sides and extend each arm with palms down (90 degrees if sitting or 45 degrees for supine). -: 0=No drift;limb holds for full 10 seconds. -: 1=Drift; limb holds but drifts down before full 10 seconds, but does not hit bed. -: 2=Some effort against gravity; limb cannot get to or maintain position. -: 3=No effort against gravity; limb falls. -: 4=No movement. -: UN=Amputation, joint fusion, explain in comments. 5. Responses (left arm): 0 5. Motor Functions (right arm): Alternate sides and extend each arm with palms down (90 degrees if sitting or 45 degrees for supine). -: 0=No drift;limb holds for full 10 seconds. -: 1=Drift; limb holds but drifts down before full 10 seconds, but does not hit bed. -: 2=Some effort against gravity; limb cannot get to or maintain position. -: 3=No effort against gravity; limb falls. -: 4=No movement. -: UN=Amputation, joint fusion, explain in comments. 5. Responses (right arm): 0 6. Motor Functions (left leg): With patient lying supine, alternate sides and extend each leg (30 degrees always while supine). -: 0=No drift, leg holds position for full 5 seconds -: 1=Drift; leg falls before full 5 seconds but does not hit bed. -: 2=Some effort against gravity, leg falls to bed but some effort against gravity. -: 3=No effort against gravity, leg falls to bed immediately. -: 4=No movement. -: UN=Amputation, joint fusion; explain in comments. 6. Responses (left leg): 2 6. Motor Functions (right leg): With patient lying supine, alternate sides and extend each leg (30 degrees always while supine). -: 0=No drift, leg holds position for full 5 seconds -: 1=Drift; leg falls before full 5 seconds but does not hit bed. -: 2=Some effort against gravity, leg falls to bed but some effort against gravity. -: 3=No effort against gravity, leg falls to bed immediately. -: 4=No movement. -: UN=Amputation, joint fusion; explain in comments. 6. Responses (right leg): 0 7. Limb Ataxia: With eyes open instruct patient to: -: a. "Touch your finger to your nose". -: b. "Touch your heel to your little" -: 0=Absent -: 1=Present in one limb. -: 2=Present in two limbs. -: UN=Amputation or joint fusion; explain in comments. 7. Responses: UN - unable to test due to profound weakness of left arm and left leg. 7. If ataxia present choose as appropriate: Left arm, Left leg 8. Sensory: Test sensation using pinprick or noxious stimuli. Test as many body parts as possible. -: 0=Normal;no sensory loss -: 1=Mile to moderate sensory loss (patient feels pin prick but is less sharp on affected side). -: 2=Severe or total sensory loss. 8. Responses: 2 - total sensory loss of left forearm and lower half of left leg. 9. Best Language: Instruct patient to: -: a. "Describe what you see in this picture." -: b. "Name the items in this picture." -: c. "Read these sentences." -: 0=No aphasia, normal -: 1=Mild to moderate aphasia. -: 2=Severe aphasia -: 3=Mute, global aphasia, no usable speech or auditory comprehension. 9. Responses: 0 10. Articulation, Dysarthia: Instruct patient to: -: "Read these words" or "Repeat these words" -: 0=Normal -: 1=Mild to moderate; patient may slur some words but can be understood without difficulty. -: 2=Severe; patients speech so slurred as to be unintelligible in the absence of dysphasia. -: UN=Intubated or other physical barrier, explain in comments. 10. Responses: 2 11. Extinction or inattention: 0=No abnormality -: 1= Visual, tactile, auditory, spatial, or personal inattention or extinction to bilateral simulation in one or the sensory modalities. -: 2=Profound darryl-inattention or darryl-inattention to more than one modality; does not recognize own hand. 11. Responses: 0 Total Score: 8 <MAGUE KAUFFMAN - Last Filed: 08/19/17 00:13> Discharge <MAGUE KAUFFMAN - Last Filed: 08/19/17 00:13> - Discharge Admitting Provider: [facility] Admitted: ICU Scribe Attestation: 08/19/17 00:46 I personally performed the services described in the documentation, reviewed and edited the documentation which was dictated to the scribe in my presence, and it accurately records my words and actions. <SREEDHAR STARK - Last Filed: 08/19/17 00:46> - Discharge Clinical Impression: Ischemic cerebrovascular accident (CVA) Condition: Good Disposition: ADMITTED INPATIENT Scribe Documentation - Scribe Written by Dagoberto:: Dagoberto Fitzgerald, 08/18/2017 19:19 acting as scribe for :: Everardo <MAGUE KAUFFMAN - Last Filed: 08/19/17 00:13>
[2017-08-18 19:14] LABS: CREATINE KINASE MB 0.69 ng/mL (<4.55)
[2017-08-18 19:15] LABS: TROPONIN I < 0.012 ng/mL
[2017-08-18] MEDS ORDERED: ACETAMINOPHEN 325 MG TABLET PO PRN (21:04)
[2017-08-18] MEDS ORDERED: MAGNESIUM HYDROXIDE SUSP 30 ML UDCUP PO PRN (21:04)
[2017-08-18] MEDS ORDERED: DOCUSATE SODIUM 100 MG CAPSULE PO PRN (21:04)
[2017-08-18] MEDS ORDERED: ATORVASTATIN CALCIUM 80 MG TABLET PO ONE (21:15)
--- NOTE | 2017-08-18 21:47 | EKG REPORT ---
SEVERITY:- ABNORMAL ECG - SINUS RHYTHM INCOMPLETE RIGHT BUNDLE BRANCH BLOCK INFERIOR INFARCT, AGE INDETERMINATE : Confirmed by: Georgina Deluna MD 18-Aug-2017 21:47:05
[2017-08-18] MEDS ORDERED: PHENYTOIN SODIUM EXTENDED 100 MG CAPSULE PO SCH (22:00)
[2017-08-19 00:13] LABS: CREATINE KINASE MB 0.62 ng/mL (<4.55)
[2017-08-19 00:20] LABS: TROPONIN I < 0.012 ng/mL
--- NOTE | 2017-08-19 03:47 | PDOC H&P ---
History of Present Illness Admission Date/PCP: 08/18/17 21:13 TRINO MOODY NP Patient complains of: Left-sided weakness History of Present Illness: MYRNA MILTON is a 47 year old male with a past medical history of coronary artery disease status post stent placement October 2016, hypertension, dyslipidemia, seizures and osteoarthritis. Patient presents for 90 minutes after collapsing after standing up followed by dysarthria, left-sided facial droop and left-sided weakness. He is brought to the emergency room for evaluation and found with a NIH of 9, unremarkable head CT and vital signs, denying palpitations or history of bleeding. He receives TPA resulting in a resolution of symptoms. He is referred to the hospitalist for admission. Patient denies chest pain palpitations shortness of breath or missed medications however his bottle of Plavix suggests missed doses. Past Medical History Cardiac Medical History: Reports: Myocardial Infarction, Hyperlipidema, Hypertension, Other - Cardiac stents - placed October 2016 Neurological Medical History: Reports: Seizures Musculoskeltal Medical History: Reports: Arthritis Psychiatric Medical History: Reports: Depression Past Surgical History Past Surgical History: Reports: Cardiac Catheterization, Orthopedic Surgery - Knee surgery, Tonsillectomy Social History Information Source: Patient Smoking Status: Never Smoker Frequency of Alcohol Use: None Hx Recreational Drug Use: No Drugs: None - Advance Directive Resuscitation Status: Full Code Family History Family History: Other - Unknown to the patient Parental Family History Reviewed: Yes Children Family History Reviewed: Yes Sibling(s) Family History Reviewed.: Yes Medication/Allergy Home Medications: Aspirin [Ecotrin 81 mg EC Tablet] 81 mg PO DAILY 12/18/16 Atorvastatin Calcium [Lipitor 80 mg Tablet] 80 mg PO QPM 12/18/16 Clopidogrel Bisulfate [Plavix 75 mg Tablet] 75 mg PO DAILY 12/18/16 Metoprolol Tartrate [Lopressor 50 mg Tablet] 25 mg PO Q12 12/18/16 Nitroglycerin [Nitrostat 0.4 mg (1/150 Gr) Tabs 25/Bottle] 1 tab SL Q5MP PRN 10/28 Allergies/Adverse Reactions: cabbage Allergy (Verified 08/18/17 21:34) RAPID HEARTBEAT carbamazepine [From Tegretol] Allergy (Verified 08/18/17 21:34) phenobarbital Allergy (Verified 08/18/17 21:34) Review of Systems Constitutional: PRESENT: as per HPI. ABSENT: chills, fever(s), headache(s), weight gain, weight loss Eyes: ABSENT: visual disturbances Ears: ABSENT: hearing changes Cardiovascular: ABSENT: chest pain, dyspnea on exertion, edema, orthropnea, palpitations Respiratory: ABSENT: cough, hemoptysis Gastrointestinal: ABSENT: abdominal pain, constipation, diarrhea, hematemesis, hematochezia, nausea, vomiting Genitourinary: ABSENT: dysuria, hematuria Musculoskeletal: PRESENT: as per HPI. ABSENT: joint swelling Integumentary: ABSENT: rash, wounds Neurological: PRESENT: as per HPI. ABSENT: abnormal gait, abnormal speech, confusion, dizziness, focal weakness, syncope Psychiatric: ABSENT: anxiety, depression, homidical ideation, suicidal ideation Endocrine: ABSENT: cold intolerance, heat intolerance, polydipsia, polyuria Hematologic/Lymphatic: ABSENT: easy bleeding, easy bruising Physical Exam Vital Signs: Temp Pulse Resp BP Pulse Ox 98.9 F 88 13 123/90 H 96 08/18/17 18:29 08/19/17 02:49 08/19/17 02:49 08/19/17 02:49 08/19/17 02:49 General appearance: PRESENT: no acute distress, well-developed, well-nourished Head exam: PRESENT: atraumatic, normocephalic Eye exam: PRESENT: conjunctiva pink, EOMI, PERRLA. ABSENT: scleral icterus Ear exam: PRESENT: normal external ear exam Mouth exam: PRESENT: moist, tongue midline Neck exam: ABSENT: carotid bruit, JVD, lymphadenopathy, thyromegaly Respiratory exam: PRESENT: clear to auscultation lorne. ABSENT: rales, rhonchi, wheezes Cardiovascular exam: PRESENT: RRR. ABSENT: diastolic murmur, rubs, systolic murmur Pulses: PRESENT: normal dorsalis pedis pul Vascular exam: PRESENT: normal capillary refill GI/Abdominal exam: PRESENT: normal bowel sounds, soft. ABSENT: distended, guarding, mass, organolmegaly, rebound, tenderness Rectal exam: PRESENT: deferred Extremities exam: PRESENT: full ROM. ABSENT: calf tenderness, clubbing, pedal edema Neurological exam: PRESENT: alert, awake, oriented to person, oriented to place , oriented to time, oriented to situation, CN II-XII grossly intact. ABSENT: motor sensory deficit Psychiatric exam: PRESENT: appropriate affect, normal mood. ABSENT: homicidal ideation, suicidal ideation Skin exam: PRESENT: dry, intact, warm. ABSENT: cyanosis, rash Results Laboratory Results: 08/18/17 08/18/17 23:38 23:38 Creatine Kinase 122 CK-MB (CK-2) 0.62 Troponin I < 0.012 Impressions: Chest X-Ray 08/18/17 00:00 IMPRESSION: RETROCARDIAC AIRSPACE OPACITY COULD REPRESENT SUBSEGMENTAL ATELECTASIS, ASPIRATION, OR PNEUMONIA. CORRELATE WITH RESPIRATORY SYMPTOMS. Head CT 08/18/17 00:00 IMPRESSION: NORMAL BRAIN CT WITHOUT CONTRAST. EVIDENCE OF ACUTE STROKE: NO. Assessment & Plan - Diagnosis (1) Ischemic cerebrovascular accident (CVA) Is this a current diagnosis for this admission?: Yes Plan: ICU for post tPA and CVA care set, permissive hypertension, holding aspirin follow-up 2D echo, MRI MRA head occupational and physical therapy. (2) CAD (coronary artery disease) Qualifiers: Coronary Disease-Associated Artery/Lesion type: unspecified vessel or lesion type [place] vs. transplanted heart: circle heart Associated angina: with stable angina Qualified Code(s): I25.118 - Atherosclerotic heart disease of circle coronary artery with other forms of angina pectoris Is this a current diagnosis for this admission?: Yes Plan: Resume home regiment (3) Hyperlipidemia Qualifiers: Hyperlipidemia type: unspecified Qualified Code(s): E78.5 - Hyperlipidemia , unspecified Is this a current diagnosis for this admission?: Yes Plan: Full dose Lipitor - Time Time Spent: 50 to 70 Minutes - Inpatient Certification Medical Necessity: Need Close Monitoring Due to Risk of Patient Decompensation
--- NOTE | 2017-08-19 04:04 | RADIOLOGY REPORT (SQ) ---
EXAM DESCRIPTION: MRI brain without contrast COMPLETED DATE/TME: 08/18/2017 00:00 CLINICAL HISTORY: 47 years, Male, cva COMPARISON: None. TECHNIQUE: Conventional noncontrast MRI of the brain. LIMITATIONS: None. FINDINGS: Brain parenchyma appears intact. No hemorrhage, ischemia, or infarct. No mass, mass effect, or midline shift. Extra-axial structures appear intact. No significant GRE susceptibility/hemosiderin products. IMPRESSION: Normal MRI of the brain.
--- NOTE | 2017-08-19 04:07 | RADIOLOGY REPORT (SQ) ---
EXAM DESCRIPTION: MR BRAIN ANGIOGRAPHY WITHOUT IV CONTRAST COMPLETED DATE/TME: 08/18/2017 21:05 CLINICAL HISTORY: 47 years, Male, cva COMPARISON: None. TECHNIQUE: Conventional MRA of the brain without contrast. 3-D reconstructions/MIPS. LIMITATIONS: None. FINDINGS: [place] of [place] appears intact. No significant stenosis or occlusion. No aneurysm. No vasculitides. IMPRESSION: Normal MRA of the brain.
[2017-08-19 06:25] LABS: ABSOLUTE EOSINOPHILS # (AUTO) 0.1 10^3/uL (0.0-0.6); ABSOLUTE LYMPHOCYTES (AUTO) 1.5 10^3/uL (0.5-4.7); ABSOLUTE MONOCYTES (AUTO) 0.5 10^3/uL (0.1-1.4); ABSOLUTE NEUT (AUTO) 4.1 10^3/uL (1.7-8.2); BASOPHILS % (AUTO) 0.6 % (0-2); HEMOGLOBIN 11.9 g/dL (13.5-17.0); LYMPHOCYTES % (AUTO) 23.8 % (13-45); MEAN CORPUSCULAR HEMOGLOBIN 31.6 pg (27.0-33.4); MEAN CORPUSCULAR HGB CONC 34.1 g/dL (32.0-36.0); MEAN CORPUSCULAR VOLUME 93 fl (80-97); MONOCYTES % (AUTO) 7.4 % (3-13); PLATELET COUNT 226 10^3/uL (150-450); RED BLOOD COUNT 3.78 10^6/uL (4.35-5.55); RED CELL DISTRIBUTION WIDTH 13.8 % (11.5-14.0); SEGMENTED NEUTROPHILS % (AUTO) 66.2 % (42-78); TOTAL CELLS COUNTED % (AUTO) 100 %; WHITE BLOOD COUNT 6.2 10^3/uL (4.0-10.5)
[2017-08-19 06:40] LABS: ALANINE AMINOTRANSFERASE 33 U/L (21-72); ALBUMIN 3.8 g/dL (3.5-5.0); ALKALINE PHOSPHATASE 63 U/L (38-126); ANION GAP 9 (5-19); ASPARTATE AMINO TRANSFERASE 25 U/L (17-59); BILIRUBIN,DIRECT 0.2 mg/dL (0.0-0.4); BILIRUBIN,TOTAL 0.9 mg/dL (0.2-1.3); BLOOD UREA NITROGEN 10 mg/dL (7-20); CALCIUM 9.3 mg/dL (8.4-10.2); CARBON DIOXIDE 27 mmol/L (22-30); CHLORIDE 107 mmol/L (98-107); GLUCOSE 100 mg/dL (75-110); TOTAL PROTEIN 6.1 g/dL (6.3-8.2)
[2017-08-19 06:51] LABS: CREATINE KINASE MB 0.69 ng/mL (<4.55)
[2017-08-19 06:53] LABS: TROPONIN I < 0.012 ng/mL
[2017-08-19] MEDS ORDERED: PHENYTOIN SODIUM EXTENDED 100 MG CAPSULE PO SCH (08:00)
[2017-08-19] MEDS ORDERED: DEXTROSE 50%-WATER 25 GM/50 ML DISP.SYRIN IV PRN ×2 (08:46)
[2017-08-19] MEDS ORDERED: DEXTROSE 40% GEL 15 GM TUBE PO PRN ×2 (08:46)
[2017-08-19] MEDS ORDERED: GLUCAGON,HUMAN RECOMB 1 MG INJ SUBCUT PRN (08:46)
[2017-08-19] MEDS ORDERED: DEXTROSE 5%-1/2 NORMAL SALINE 1,000 ML IV PRN (09:09)
--- NOTE | 2017-08-19 11:10 | PROGRESS NOTE E ---
Progress Note NAME: MYRNA MILTON : 1970 AGE: 47Y DATE: 08/19/2017 ROOM: 608 SUBJECTIVE: The patient is a 47-year-old male who has a past medical history of coronary artery disease, hyperlipidemia, hypertension, cardiac stent. Patient was admitted with stroke symptoms manifested with left-sided weakness and left-sided facial droop, and the patient fell and collapsed. CT scan and MRI and MRA was unremarkable. However, the patient received t-PA with complete resolution of his symptoms. He was admitted to ICU for observation following t-PA management and treatment. He today is feeling well. He does not have any weakness. His symptoms resolved. PHYSICAL EXAMINATION: GENERAL: Patient is lying in bed comfortable, not in distress. VITAL SIGNS: Blood pressure 126/86, heart rate is 93, respiratory rate 14, saturation 96%, afebrile. HEENT: Head is normocephalic, atraumatic. Pupils round, reactive to the light and accommodation bilaterally. Extraocular movements intact. Ears: Tympanic membranes are intact bilaterally. No discharge from the ears. No discharge from the nose. NECK: Supple. No increased JVD. No thyromegaly. No lymphadenopathy. CARDIOVASCULAR: Normal S1, S2. Regular rate and rhythm. No murmur. No gallop. RESPIRATORY: Lungs clear. ABDOMEN: Soft. MUSCULOSKELETAL: No edema. NEUROLOGIC: Awake, alert. SKIN: No rash. HEMATOLOGIC/LYMPHOCYTIC: No anemia. No easy bruising. LABORATORY STUDIES: Sodium 144, potassium 4.0. White blood count is 6.2, hemoglobin 11.9, hematocrit 35. MRI of the brain and MRA was unremarkable. CT scan was unremarkable. Cardiac enzymes were negative. Chest x-ray was normal. ASSESSMENT AND PLAN: 1. ACUTE STROKE/CVA, STATUS POST T-PA TREATMENT, RESOLVED. 2. CORONARY ARTERY DISEASE, STATUS POST STENT PLACEMENT IN 2017. Patient is currently stable. 3. HYPERLIPIDEMIA. He is on a statin. MEDICAL NECESSITY: The patient is stable after treatment for the stroke and following him for post t-PA management. DICTATING PHYSICIAN: LUIS OCONNELL M.D. [id number] PHY#: [id number] ID: [id number] JOB#: [id number] ACCT: [id number] cc: >
[2017-08-19 13:41] LABS: TROPONIN I < 0.012 ng/mL
--- NOTE | 2017-08-19 16:23 | XCELERA REPORT ---
[address] [address] Transthoracic Echocardiogram Report Name: MYRNA MILTON Age: 47 yrs Gender: Male : 1970 Patient Status: Inpatient Patient Location: ICU^608^A Study Date: 08/19/2017 12:30 PM Height: 69 in Weight: 219 lb BSA: 2.1 m2 Procedure: A complete two-dimensional transthoracic echocardiogram was performed (2D, M-mode, spectral and color flow Doppler). The study was technically adequate with some images being suboptimal in quality. Reason For Study: Post TPA Ordering Physician: LUIS OCONNELL Performed By: Tg Robles Interpretation Summary Left ventricular systolic function is low normal. Doppler measurements suggest pseudonormalized left ventricular relaxation, which is associated with grade II/IV or mild to moderate diastolic dysfunction There is borderline concentric left ventricular hypertrophy. The left ventricle is grossly normal size. Wall motion cannot be accurately commented on, but no definite regional wall motion abnormalities noted. The right ventricle is grossly normal size. The right ventricular systolic function is normal. The right atrium is normal in size The left atrial size is normal. There is no mitral valve stenosis. There is a trace amount of mitral regurgitation There is no aortic valve stenosis No aortic regurgitation is present. There is no tricuspid stenosis. No tricuspid regurgitation. The pulmonic valve is not well visualized. The aortic root is not well visualized but is probably normal size. The inferior vena cava was not well visualized There is no pericardial effusion. No definite cardiac source of CVA/TIA noted on this particular trans- thoracic study. Consider NYLA if clinically indicated. May consider mobile cardiac telemetry monitoring (MCT) for ruling out transient AFIB. MMode/2D Measurements & Calculations RVDd: 2.3 cm LVIDd: 4.9 cm FS: 30.1 % Ao root diam: 3.7 cm IVSd: 0.95 cm LVIDs: 3.4 cm EDV(Teich): 113.1 ml LVPWd: 0.99 cm ESV(Teich): 48.5 ml Ao root area: 10.8 cm2 EF(Teich): 57.1 % LA dimension: 2.9 cm Doppler Measurements & Calculations MV E max mary: MV P1/2t max mary: Ao V2 max: LV V1 max P.7 cm/sec 98.7 cm/sec 120.8 cm/sec 3.6 mmHg MV A max mary: MV P1/2t: 69.6 msec Ao max PG: LV V1 max: 94.3 cm/sec 5.8 mmHg 94.3 cm/sec MV E/A: 1.0 MVA(P1/2t): 3.2 cm2 MV dec slope: 415.1 cm/sec2 MV dec time: 0.22 sec PA V2 max: 68.6 cm/sec PA max P.9 mmHg Left Ventricle The left ventricle is grossly normal size. There is borderline concentric left ventricular hypertrophy. Left ventricular systolic function is low normal. Doppler measurements suggest pseudonormalized left ventricular relaxation, which is associated with grade II/IV or mild to moderate diastolic dysfunction. Wall motion cannot be accurately commented on, but no definite regional wall motion abnormalities noted. Right Ventricle The right ventricle is grossly normal size. There is normal right ventricular wall thickness. The right ventricular systolic function is normal. Atria The right atrium is normal in size. The left atrial size is normal. Interarterial septum not well visualized and not well dopplered. Cannot comment on ASD/PFO presence. Mitral Valve The mitral valve is grossly normal. There is no mitral valve stenosis. There is a trace amount of mitral regurgitation. Aortic Valve The aortic valve is grossly normal. There is no aortic valve stenosis. No aortic regurgitation is present. Tricuspid Valve The tricuspid valve is not well visualized secondary to technical limitations. There is no tricuspid stenosis. No tricuspid regurgitation. Pulmonic Valve The pulmonic valve is not well visualized. Great Vessels The aortic root is not well visualized but is probably normal size. The inferior vena cava was not well visualized. Effusions There is no pericardial effusion. Incidental Findings No definite cardiac source of CVA/TIA noted on this particular trans- thoracic study. Consider NYLA if clinically indicated. May consider mobile cardiac telemetry monitoring (MCT) for ruling out transient AFIB. : LUIS OCONNELL > Che Leyva
[2017-08-19] MEDS ORDERED: ATORVASTATIN CALCIUM 80 MG TABLET PO SCH (18:00)
[2017-08-19] MEDS ORDERED: ACETAMINOPHEN 325 MG TABLET PO PRN (19:59)
[2017-08-20 05:54] LABS: ANION GAP 12 (5-19); BLOOD UREA NITROGEN 8 mg/dL (7-20); CALCIUM 9.3 mg/dL (8.4-10.2); CARBON DIOXIDE 25 mmol/L (22-30); CHLORIDE 106 mmol/L (98-107); GLUCOSE 125 mg/dL (75-110); POTASSIUM 4.4 mmol/L (3.6-5.0); SODIUM 143.2 mmol/L (137-145)
[2017-08-20 06:59] LABS: ABSOLUTE EOSINOPHILS # (AUTO) 0.1 10^3/uL (0.0-0.6); ABSOLUTE LYMPHOCYTES (AUTO) 1.4 10^3/uL (0.5-4.7); ABSOLUTE MONOCYTES (AUTO) 0.4 10^3/uL (0.1-1.4); ABSOLUTE NEUT (AUTO) 4.2 10^3/uL (1.7-8.2); BASOPHILS % (AUTO) 0.6 % (0-2); EOSINOPHILS % (AUTO) 1.9 % (0-6); HEMATOCRIT 37.4 % (37.9-51.0); HEMOGLOBIN 12.4 g/dL (13.5-17.0); LYMPHOCYTES % (AUTO) 22.7 % (13-45); MEAN CORPUSCULAR HEMOGLOBIN 30.7 pg (27.0-33.4); MEAN CORPUSCULAR HGB CONC 33.1 g/dL (32.0-36.0); MEAN CORPUSCULAR VOLUME 93 fl (80-97); MONOCYTES % (AUTO) 6.3 % (3-13); PLATELET COUNT 234 10^3/uL (150-450); RED BLOOD COUNT 4.03 10^6/uL (4.35-5.55); RED CELL DISTRIBUTION WIDTH 13.9 % (11.5-14.0); SEGMENTED NEUTROPHILS % (AUTO) 68.5 % (42-78); TOTAL CELLS COUNTED % (AUTO) 100 %; WHITE BLOOD COUNT 6.1 10^3/uL (4.0-10.5)
[2017-08-20 07:44] VITALS: BP 132/91
[2017-08-20] MEDS ORDERED: ASPIRIN 325 MG TABLET PO SCH (10:00)
--- NOTE | 2017-08-20 20:49 | DISCHARGE SUMMARY E ---
Discharge Summary NAME: MYRNA MILTON : 1970 AGE: 47Y ADMITTED: 08/18/2017 DISCHARGED: 08/20/2017 ADMISSION DIAGNOSES: 1. Acute stroke. 2. Hyperlipidemia. 3. Hypertension. 4. Myocardial infarction. 5. Coronary artery disease. DISCHARGE DIAGNOSES: 1. Ischemic cerebrovascular accident. 2. Coronary artery disease. 3. Hyperlipidemia. 4. Hypertension. IMAGING STUDIES: CT scan of the head was unremarkable. MRI of the brain was normal. MRI/MRA of the brain and neck was unremarkable. Echocardiogram; low normal ejection fraction and mild diastolic heart failure. HOSPITAL COURSE: The patient is a 47-year-old male who has a past medical history of hypertension, coronary artery disease, [place], hyperlipidemia. The patient came to the emergency room after he had a left-sided weakness and he was brought to the emergency room for evaluation. He was brought within 90 minutes of onset of the symptoms. He has a history of seizures, coronary artery disease status post stent placement, dyslipidemia; and the patient received tPA and admitted to rule out stroke. He had initially a CT scan which was negative as well as MRI also was negative and MRA of the brain also was negative. Echocardiogram showed diastolic heart failure with low normal ejection fraction. The patient's symptoms resolved completely after he received tPA. His aspirin was held. He was taking Plavix at home. The patient is very stable today to be discharged home. The issue on him, he has symptom of obstructive sleep apnea during his stay. He is snoring and he is impaired and becomes hypoxic at night. He needs a workup for obstructive sleep apnea and that will be done as outpatient. The patient was instructed not to take aspirin today and tomorrow start taking aspirin and Plavix. PHYSICAL EXAMINATION ON DISCHARGE: GENERAL: The patient is lying in bed, comfortable, not in distress. VITAL SIGNS: Temperature 97.5, heart rate 86, blood pressure 132/91, respiratory 16, saturation 99%. HEENT: Head normocephalic, atraumatic. Pupils round, reactive to light and accommodation bilaterally. Extraocular movements intact. Ears: Tympanic membranes intact bilaterally. No discharge from the ear. No discharge from the nose. NECK: Supple, no increased JVD, no thyromegaly, no lymphadenopathy. CARDIOVASCULAR: Normal S1, S2. Regular rate and rhythm. No murmur, no gallop. RESPIRATORY: Lungs clear. ABDOMEN: Soft, nontender. MUSCULOSKELETAL: No edema. NEUROLOGIC: Awake, alert. SKIN: No rash. LABORATORY DATA: White blood count 6.1, hemoglobin 12.4, hematocrit 34. Sodium 143, potassium 4.4. DISCHARGE INSTRUCTIONS: 1. Discharge the patient home. 2. Diet: Cardiac. 3. Medications: Lopressor 50 mg p.o. b.i.d., Plavix 75 mg p.o. daily, aspirin 81 mg daily, Lipitor 80 mg p.o. daily, milk of magnesia 30 mL b.i.d. p.r.n., Colace 100 mg p.o. b.i.d.. 4. Activity as tolerated. 5. Follow up with his primary care physician in 1 week. Follow up with pulmonary for workup for obstructive sleep apnea. TIME SPENT: Forty minutes. DICTATING PHYSICIAN: LUIS OCONNELL M.D. [id number] PHY#: [id number] ID: [id number] JOB#: [id number] ACCT: [id number] cc:Char ARCE M.D. >
== END 2017-08-20 10:43 | disposition home or self-care (01) | DRG 63 ==
LOC: ER 18:18 → EH 21:13 → ICU 08-19 02:22
PROVIDERS: ADMIT Internal Medicine; ATTEND Internal Medicine
DX: I63.9 Cerebral infarction, unspecified (principal); R29.810 Facial weakness; I10 Essential (primary) hypertension; E78.5 Hyperlipidemia, unspecified; I25.118 Atherosclerotic heart disease of native coronary artery with other forms of angina pectoris; G40.909 Epilepsy, unspecified, not intractable, without status epilepticus; I25.2 Old myocardial infarction; Z79.01 Long term (current) use of anticoagulants; Z79.82 Long term (current) use of aspirin; Z79.899 Other long term (current) drug therapy
CPT/HCPCS: 36415; 70450; 70544; 70551; 71045; 80048; 80053; 82550; 82553; 82962; 83735; 84484; 85025; 85610; 85730; 93005; 93010; 93306; 96365; 99291; J2997; J3490

== ENCOUNTER 2017-08-31 12:09 | Inpatient (IN) | payer OTHER ==
[2017-08-31] MEDS ORDERED: NORMAL SALINE 1000 ML 1,000 ML IV PRN (12:17)
[2017-08-31 12:56] LABS: ABSOLUTE BASOPHILS # (AUTO) 0.1 10^3/uL (0.0-0.2); ABSOLUTE LYMPHOCYTES (AUTO) 1.9 10^3/uL (0.5-4.7); ABSOLUTE MONOCYTES (AUTO) 0.7 10^3/uL (0.1-1.4); ABSOLUTE NEUT (AUTO) 11.9 10^3/uL (1.7-8.2); BASOPHILS % (AUTO) 0.4 % (0-2); EOSINOPHILS % (AUTO) 0.1 % (0-6); HEMOGLOBIN 9.4 g/dL (13.5-17.0); LYMPHOCYTES % (AUTO) 12.9 % (13-45); MEAN CORPUSCULAR HEMOGLOBIN 31.4 pg (27.0-33.4); MEAN CORPUSCULAR HGB CONC 33.5 g/dL (32.0-36.0); MEAN CORPUSCULAR VOLUME 94 fl (80-97); MONOCYTES % (AUTO) 4.5 % (3-13); PLATELET COUNT 251 10^3/uL (150-450); RED BLOOD COUNT 2.99 10^6/uL (4.35-5.55); RED CELL DISTRIBUTION WIDTH 14.1 % (11.5-14.0); SEGMENTED NEUTROPHILS % (AUTO) 82.1 % (42-78); TOTAL CELLS COUNTED % (AUTO) 100 %; WHITE BLOOD COUNT 14.5 10^3/uL (4.0-10.5)
[2017-08-31 13:08] LABS: ALANINE AMINOTRANSFERASE 40 U/L (21-72); ALKALINE PHOSPHATASE 53 U/L (38-126); ANION GAP 9 (5-19); ASPARTATE AMINO TRANSFERASE 27 U/L (17-59); BILIRUBIN,DIRECT 0.3 mg/dL (0.0-0.4); BILIRUBIN,TOTAL 0.5 mg/dL (0.2-1.3); BLOOD UREA NITROGEN 35 mg/dL (7-20); CALCIUM 9.5 mg/dL (8.4-10.2); CARBON DIOXIDE 25 mmol/L (22-30); CHLORIDE 108 mmol/L (98-107); CREATINE KINASE 97 U/L (55-170); GLUCOSE 102 mg/dL (75-110); POTASSIUM 4.6 mmol/L (3.6-5.0); SODIUM 142.2 mmol/L (137-145); TOTAL PROTEIN 6.2 g/dL (6.3-8.2)
[2017-08-31 13:32] LABS: APPEARANCE,URINE SLIGHTLY-CLOUDY; BILIRUBIN,URINE NEGATIVE (NEGATIVE); COLOR,URINE YELLOW; GLUCOSE, URINE NEGATIVE (NEGATIVE); KETONES,URINE NEGATIVE (NEGATIVE); LEUKOCYTE ESTERASE,URINE NEGATIVE (NEGATIVE); NITRITE,URINE NEGATIVE (NEGATIVE); PROTEIN,URINE NEGATIVE (NEGATIVE); URINE SPECIFIC GRAVITY 1.025
--- NOTE | 2017-08-31 13:51 | ER Document Report ---
ED General - General Chief Complaint: Other Stated Complaint: HIGH BODY TEMPATURE Time Seen by Provider: 08/31/17 12:20 Mode of Arrival: Medic Information source: Patient Notes: Patient states that he was walking for 2-1/2 hours this afternoon while in the sun and felt dehydrated. Patient states that he went to a fire station due to his symptoms while walking. Patient states that he felt lightheaded and dizzy and had nausea with vomiting 1 episode. Patient does report right lower quadrant abdominal pain that started around 915 while he was walking. Patient does report that he was recently discharged after having a CVA and receiving TPA. Patient is currently taking Plavix and aspirin and reports black stools today. TRAVEL OUTSIDE OF THE [place] IN LAST 30 DAYS: No - HPI Onset: This afternoon Onset/Duration: Gradual Quality of pain: Stabbing Pain Level: 3 Associated symptoms: Other - Lightheaded, dizzy. denies: Chest pain, Nonproductive cough, Productive cough, Diarrhea, Fever, Nausea, Vomiting, Shortness of breath Exacerbated by: Walking Relieved by: Denies Similar symptoms previously: No Recently seen / treated by doctor: Yes - Related Data Allergies/Adverse Reactions: cabbage Allergy (Verified 08/31/17 12:29) RAPID HEARTBEAT carbamazepine [From Tegretol] Allergy (Verified 08/31/17 12:29) phenobarbital Allergy (Verified 08/31/17 12:29) Past Medical History - General Information source: Patient - Social History Smoking Status: Former Smoker Frequency of alcohol use: None Drug Abuse: None Occupation: none Family History: Reviewed & Not Pertinent, Other - Unknown to the patient Patient has suicidal ideation: No Patient has homicidal ideation: No - Past Medical History Cardiac Medical History: Reports: Hx Heart Attack, Hx Hypercholesterolemia, Hx Hypertension Neurological Medical History: Reports: Hx Cerebrovascular Accident, Hx Seizures Renal/ Medical History: Denies: Hx Peritoneal Dialysis Musculoskeltal Medical History: Reports Hx Arthritis Psychiatric Medical History: Reports: Hx Depression Past Surgical History: Reports: Hx Cardiac Catheterization, Hx Cardiac Surgery, Hx Orthopedic Surgery - Knee surgery, Hx Tonsillectomy - Immunizations Hx Diphtheria, Pertussis, Tetanus Vaccination: Yes Review of Systems - Review of Systems Constitutional: No symptoms reported. denies: Fever, Recent illness EENT: No symptoms reported Cardiovascular: Dizziness, Lightheaded. denies: Chest pain Respiratory: No symptoms reported. denies: Cough, Short of breath Gastrointestinal: Abdominal pain, Black stools. denies: Diarrhea, Nausea, Vomiting Genitourinary: No symptoms reported. denies: Dysuria, Flank pain Male Genitourinary: No symptoms reported Musculoskeletal: No symptoms reported. denies: Back pain Skin: No symptoms reported Hematologic/Lymphatic: No symptoms reported Neurological/Psychological: No symptoms reported. denies: Headaches Physical Exam - Vital signs Vitals: Pulse Ox 98 08/31/17 12:10 - General General appearance: Appears well, Alert In distress: None - HEENT Head: Normocephalic Eyes: Normal Conjunctiva: Normal Nasal: Normal Mouth/Lips: Normal Mucous membranes: Normal Neck: Normal, Supple. No: Lymphadenopathy - Respiratory Respiratory status: No respiratory distress Chest status: Nontender Breath sounds: Normal. No: Rales, Rhonchi, Stridor, Wheezing Chest palpation: Normal - Cardiovascular Rhythm: Tachycardia Heart sounds: S1 appreciated, S2 appreciated Murmur: No - Abdominal Inspection: Normal Distension: No distension Bowel sounds: Normal Tenderness: Tender - Right lower quadrant, left lower quadrant tenderness Organomegaly: No organomegaly - Rectal Tenderness: No Stool: Black, See lab result Hemorrhoids: None Prostate: Normal - Back Back: Normal, Nontender. No: CVA tenderness - Extremities General upper extremity: Normal inspection, Normal strength General lower extremity: Normal inspection, Normal strength - Neurological Neuro grossly intact: Yes Cognition: Normal Patrick Coma Scale Eye Opening: Spontaneous Hazel Coma Scale Verbal: Oriented Hazel Coma Scale Motor: Obeys Commands Hazel Coma Scale Total: 15 - Psychological Associated symptoms: Normal affect, Normal mood - Skin Skin Temperature: Warm Skin Moisture: Dry Skin Color: Pale Course - Re-evaluation Re-evalutation: 08/31/17 13:[address] Kaur regarding patient presentation. Recommends CT scanning patient. 08/31/17 18:[address] Kaur regarding patient CT results. Recommends consultation with surgeon to see if he will be agreeable for backup for hospitalist admission given patient's anemia with tachycardia and concern about GI bleeding. Dr. Adrian is agreeable to be consulted stating that these patients typically are not scoped for at least 24 hours. Call placed to hospitalist Dr. Murcia states that it is now 615, will wait till shift manager hospitalist is button tufting machine operator for consultation. 08/31/17 18:34 Dr. Adrian in to evaluate patient 08/31/17 19:[address] Saucedo who does agree to accept patient for admission - Vital Signs Vital signs: Temp Pulse Resp BP Pulse Ox 98.7 F 13 123/76 97 08/31/17 13:08 08/31/17 19:01 08/31/17 19:01 08/31/17 19:01 - Laboratory Result Diagrams: 08/31/17 18:38 08/31/17 12:40 Laboratory results interpreted by me: 08/31/17 08/31/17 08/31/17 12:40 12:40 13:15 WBC 14.5 H RBC 2.99 L Hgb 9.4 L Hct 28.0 L RDW 14.1 H Seg Neutrophils % 82.1 H Lymphocytes % 12.9 L Absolute Neutrophils 11.9 H Chloride 108 H BUN 35 H Total Protein 6.2 L Urine Urobilinogen 2.0 H Crossmatch 08/31/17 08/31/17 13:58 18:38 WBC RBC 2.54 L Hgb 8.0 L Hct 23.7 L RDW Seg Neutrophils % Lymphocytes % Absolute Neutrophils Chloride BUN Total Protein Urine Urobilinogen Crossmatch See Detail 08/31/17 19:23 Labs- Entire Visit 08/31/17 08/31/17 08/31/17 12:40 12:40 12:40 WBC 14.5 H RBC 2.99 L Hgb 9.4 L Hct 28.0 L MCV 94 MCH 31.4 MCHC 33.5 RDW 14.1 H Plt Count 251 Seg Neutrophils % 82.1 H Lymphocytes % 12.9 L Monocytes % 4.5 Eosinophils % 0.1 Basophils % 0.4 Absolute Neutrophils 11.9 H Absolute Lymphocytes 1.9 Absolute Monocytes 0.7 Absolute Eosinophils 0.0 Absolute Basophils 0.1 PT 14.0 INR 1.03 APTT 24.6 Sodium 142.2 Potassium 4.6 Chloride 108 H Carbon Dioxide 25 Anion Gap 9 BUN 35 H Creatinine 0.83 Est GFR ( Amer) > 60 Est GFR (Non-Af Amer) > 60 Glucose 102 Calcium 9.5 Total Bilirubin 0.5 Direct Bilirubin 0.3 Neonat Total Bilirubin Not Reportable Neonat Direct Bilirubin Not Reportable Neonat Indirect Bili Not Reportable AST 27 ALT 40 Alkaline Phosphatase 53 Creatine Kinase 97 Total Protein 6.2 L Albumin 4.0 Urine Color Urine Appearance Urine pH Ur Specific [place] Urine Protein Urine Glucose (UA) Urine Ketones Urine Blood Urine Nitrite Urine Bilirubin Urine Urobilinogen Ur Leukocyte Esterase Urine WBC (Auto) Urine RBC (Auto) U Hyaline Cast (Auto) Urine Bacteria (Auto) Squamous Epi Cells Auto Urine Mucus (Auto) Urine Ascorbic Acid Stool Occult Blood Blood Type Antibody Screen 08/31/17 08/31/17 08/31/17 13:15 13:46 13:58 WBC RBC Hgb Hct MCV MCH MCHC RDW Plt Count Seg Neutrophils % Lymphocytes % Monocytes % Eosinophils % Basophils % Absolute Neutrophils Absolute Lymphocytes Absolute Monocytes Absolute Eosinophils Absolute Basophils PT INR APTT Sodium Potassium Chloride Carbon Dioxide Anion Gap BUN Creatinine Est GFR ( Amer) Est GFR (Non-Af Amer) Glucose Calcium Total Bilirubin Direct Bilirubin Neonat Total Bilirubin Neonat Direct Bilirubin Neonat Indirect Bili AST ALT Alkaline Phosphatase Creatine Kinase Total Protein Albumin Urine Color YELLOW Urine Appearance SLIGHTLY-CLOUDY Urine pH 5.0 Ur Specific [place] 1.025 Urine Protein NEGATIVE Urine Glucose (UA) NEGATIVE Urine Ketones NEGATIVE Urine Blood NEGATIVE Urine Nitrite NEGATIVE Urine Bilirubin NEGATIVE Urine Urobilinogen 2.0 H Ur Leukocyte Esterase NEGATIVE Urine WBC (Auto) 4 Urine RBC (Auto) 1 U Hyaline Cast (Auto) 7 Urine Bacteria (Auto) TRACE Squamous Epi Cells Auto <1 Urine Mucus (Auto) FEW Urine Ascorbic Acid NEGATIVE Stool Occult Blood POSITIVE Blood Type A POSITIVE Antibody Screen NEGATIVE 08/31/17 18:38 WBC 10.2 RBC 2.54 L Hgb 8.0 L Hct 23.7 L MCV 93 MCH 31.6 MCHC 33.8 RDW 14.0 Plt Count 195 Seg Neutrophils % 77.0 Lymphocytes % 17.4 Monocytes % 4.8 Eosinophils % 0.1 Basophils % 0.7 Absolute Neutrophils 7.9 Absolute Lymphocytes 1.8 Absolute Monocytes 0.5 Absolute Eosinophils 0.0 Absolute Basophils 0.1 PT INR APTT Sodium Potassium Chloride Carbon Dioxide Anion Gap BUN Creatinine Est GFR ( Amer) Est GFR (Non-Af Amer) Glucose Calcium Total Bilirubin Direct Bilirubin Neonat Total Bilirubin Neonat Direct Bilirubin Neonat Indirect Bili AST ALT Alkaline Phosphatase Creatine Kinase Total Protein Albumin Urine Color Urine Appearance Urine pH Ur Specific [place] Urine Protein Urine Glucose (UA) Urine Ketones Urine Blood Urine Nitrite Urine Bilirubin Urine Urobilinogen Ur Leukocyte Esterase Urine WBC (Auto) Urine RBC (Auto) U Hyaline Cast (Auto) Urine Bacteria (Auto) Squamous Epi Cells Auto Urine Mucus (Auto) Urine Ascorbic Acid Stool Occult Blood Blood Type Antibody Screen - Diagnostic Test Radiology reviewed: Reports reviewed Discharge - Discharge Clinical Impression: Tachycardia GI bleed Qualifiers: GI bleed type/associated pathology: unspecified gastrointestinal hemorrhage type Qualified Code(s): K92.2 - Gastrointestinal hemorrhage, unspecified Anemia Qualifiers: Anemia type: other cause Other causes of anemia: acute posthemorrhagic Qualified Code(s): D62 - Acute posthemorrhagic anemia Condition: Fair Disposition: ADMITTED INPATIENT Admitting Provider: Hospitalist Unit Admitted: ICU
[2017-08-31 14:07] LABS: INTERNATIONAL RATION (INR) 1.03
[2017-08-31 14:08] LABS: PARTIAL THROMBOPLASTIN TIME 24.6 SEC (23.5-35.8)
[2017-08-31] MEDS: NORMAL SALINE 1000 ML 1,000 ML IV PRN ×2 (15:37→19:59)
[2017-08-31] MEDS ORDERED: PROCHLORPERAZINE EDISYLATE INJ 10 MG/2 ML VIAL IV ONE (16:42)
--- NOTE | 2017-08-31 17:54 | RADIOLOGY REPORT (SQ) ---
EXAM DESCRIPTION: CT ABD/PELVIS WITH IV ORAL COMPLETED DATE/TIME: 08/31/2017 5:09 pm REASON FOR STUDY: pelvic pain, low H/H, black stools COMPARISON: None. TECHNIQUE: CT scan of the abdomen and pelvis performed using helical scanning technique with dynamic intravenous contrast injection and oral contrast. Images reviewed with lung, soft tissue, and bone w indows. Reconstructed coronal and sagittal MPR images reviewed. Delayed images for evaluation of the urinary system also acquired. All images stored on PACS. All CT scanners at this facility use dose modulation, iterative reconstruction, and/or weight based d osing when appropriate to reduce radiation dose to as low as reasonably achievable (ALARA). [facility]: Dose Right [facility]: CareDose [facility]: Dose Right [facility]: Teradose 4D [facility]: [employer] CONTRAST TYPE AND DOSE: contrast/concentration: Isovue 370.00 mg/ml; Total Contrast Delivered: 100.0 ml; Total Saline Delivered: 72.0 ml RENAL FUNCTION: Creatinine 0.83 RADIATION DOSE: CT Rad equipment meets quality standard of care and radiation dose reduction techniq ues were employed. CTDIvol: 13.7 - 15.7 mGy. DLP: 1645 mGy-cm.. LIMITATIONS: None. FINDINGS: LOWER CHEST: No significant findings. No nodules or infiltrates. LIVER: Normal size. No masses. No dilated ducts. SPLEEN: Normal size. No focal lesions. PANCREAS: No masses. No significant calcifications. No adjacent inflammation or peripancreatic fluid collections. Pancreatic duct not dilated. GALLBLADDER: No identified stones by CT criteria. No inflammatory changes to suggest cholecystitis. ADRENAL GLANDS: No significant masses or asymmetry. RIGHT KIDNEY AND URETER: No solid masses. No significant calcifications. No hydronephrosis or hyd roureter. LEFT KIDNEY AND URETER: No solid masses. No significant calcifications. No hydronephrosis or hydr oureter. AORTA AND VESSELS: No aneurysm. No dissection. Renal arteries, SMA, celiac without stenosis. RETROPERITONEUM: No retroperitoneal adenopathy, hemorrhage or masses. BOWEL AND PERITONEAL CAVITY: No masses or inflammatory changes. No free fluid or peritoneal masses. APPENDIX: Normal. PELVIS: No mass. No free fluid. Normal bladder. ABDOMINAL WALL: No masses. No hernias. BONES: No significant or acute findings. OTHER: Multiple prominent bilateral inguinal lymph nodes are identified. IMPRESSION: NO SIGNIFICANT OR ACUTE FINDING IN THE ABDOMEN OR PELVIS ON CT SCAN WITH IV CONTRAST. TECHNICAL DOCUMENTATION: JOB ID: [id number] Quality ID # [id number]: Final reports with documentation of one or more dose reduction techniques (e.g., Au tomated exposure control, adjustment of the mA and/or kV according to patient size, use of iterative reconstruction technique) 2010 [email or web address]- All Rights Reserved Reading location - IP/workstation name: [email or web address]
--- NOTE | 2017-08-31 18:51 | PDOC CONSULTATION ---
Consultation Consult Date: 08/31/17 Consult reason:: anemia, melena History of Present Illness Patient complains of: lightheadness History of Present Illness: MYRNA MILTON is a 47 year old male with hx of stroke 2 weeks ago with left side temporary weakness with resolution after the administration of TPA. Patient was placed on ASA and Plavix. This morning, the patent was walking under a strong sun when he felt lightheaded and asked for assistance from the local Fire Department and he was taken to the ER where he was found to be tachycardic and anemic (H/H = 9.4/28). Upon further questions, he admitted to have noticed his stools to be soft and black today. Past Medical History Cardiac Medical History: Reports: Myocardial Infarction, Hyperlipidema, Hypertension Neurological Medical History: Reports: Seizures Musculoskeltal Medical History: Reports: Arthritis Psychiatric Medical History: Reports: Depression Past Surgical History Past Surgical History: Reports: Cardiac Catheterization, Orthopedic Surgery - Knee surgery, Tonsillectomy Social History Smoking Status: Former Smoker Frequency of Alcohol Use: None Hx Recreational Drug Use: No Drugs: None Hx Prescription Drug Abuse: No Family History Family History: Other - Unknown to the patient Parental Family History Reviewed: No Children Family History Reviewed: No Sibling(s) Family History Reviewed.: No Medication/Allergy Allergies/Adverse Reactions: cabbage Allergy (Verified 08/31/17 12:29) RAPID HEARTBEAT carbamazepine [From Tegretol] Allergy (Verified 08/31/17 12:29) phenobarbital Allergy (Verified 08/31/17 12:29) Physical Exam Vital Signs: Temp Pulse Resp BP Pulse Ox 98.7 F 15 125/78 100 08/31/17 13:08 08/31/17 17:17 08/31/17 17:17 08/31/17 17:17 Intake & Output 08/30/17 08/31/17 09/01/17 06:59 06:59 06:59 Weight 93.4 kg General appearance: PRESENT: no acute distress, cooperative, obese Head exam: PRESENT: atraumatic Eye exam: PRESENT: EOMI Mouth exam: PRESENT: neck supple Neck exam: PRESENT: full ROM Respiratory exam: PRESENT: clear to auscultation lorne Cardiovascular exam: PRESENT: RRR GI/Abdominal exam: PRESENT: normal bowel sounds, soft - obese, ND, tender in the RLQ and LLQ; no peritoneal signs Results Laboratory Results: 08/31/17 12:40 08/31/17 12:40 08/31/17 08/31/17 08/31/17 12:40 12:40 13:15 WBC 14.5 H RBC 2.99 L Hgb 9.4 L Hct 28.0 L MCV 94 MCH 31.4 MCHC 33.5 RDW 14.1 H Plt Count 251 Seg Neutrophils % 82.1 H Lymphocytes % 12.9 L Monocytes % 4.5 Eosinophils % 0.1 Basophils % 0.4 Absolute Neutrophils 11.9 H Absolute Lymphocytes 1.9 Absolute Monocytes 0.7 Absolute Eosinophils 0.0 Absolute Basophils 0.1 Sodium 142.2 Potassium 4.6 Chloride 108 H Carbon Dioxide 25 Anion Gap 9 BUN 35 H Creatinine 0.83 Est GFR ( Amer) > 60 Est GFR (Non-Af Amer) > 60 Glucose 102 Calcium 9.5 Total Bilirubin 0.5 AST 27 ALT 40 Alkaline Phosphatase 53 Total Protein 6.2 L Albumin 4.0 Urine Color YELLOW Urine Appearance SLIGHTLY-CLOUDY Urine pH 5.0 Ur Specific [place] 1.025 Urine Protein NEGATIVE Urine Glucose (UA) NEGATIVE Urine Ketones NEGATIVE Urine Blood NEGATIVE Urine Nitrite NEGATIVE Ur Leukocyte Esterase NEGATIVE Urine WBC (Auto) 4 Urine RBC (Auto) 1 Stool Occult Blood Blood Type Antibody Screen 08/31/17 08/31/17 13:46 13:58 WBC RBC Hgb Hct MCV MCH MCHC RDW Plt Count Seg Neutrophils % Lymphocytes % Monocytes % Eosinophils % Basophils % Absolute Neutrophils Absolute Lymphocytes Absolute Monocytes Absolute Eosinophils Absolute Basophils Sodium Potassium Chloride Carbon Dioxide Anion Gap BUN Creatinine Est GFR ( Amer) Est GFR (Non-Af Amer) Glucose Calcium Total Bilirubin AST ALT Alkaline Phosphatase Total Protein Albumin Urine Color Urine Appearance Urine pH Ur Specific [place] Urine Protein Urine Glucose (UA) Urine Ketones Urine Blood Urine Nitrite Ur Leukocyte Esterase Urine WBC (Auto) Urine RBC (Auto) Stool Occult Blood POSITIVE Blood Type A POSITIVE Antibody Screen NEGATIVE 08/31/17 12:40 Creatine Kinase 97 Impressions: Abdomen/Pelvis CT 08/31/17 00:00 IMPRESSION: NO SIGNIFICANT OR ACUTE FINDING IN THE ABDOMEN OR PELVIS ON CT SCAN WITH IV CONTRAST. Assessment & Plan - Diagnosis (2) Anemia Qualifiers: Anemia type: other cause Other causes of anemia: acute posthemorrhagic Qualified Code(s): D62 - Acute posthemorrhagic anemia - Plan Summary Plan Summary: A/ Anemia with melena (h/H = 9.4) Lower bilateral pain Tachycardia (low 100's) Hx of recent stroke with resolution of left side weakness Patient on Plavix and ASA as stroke prophylaxis P Patient to be observed x 24 hrs Keep npo IV fluids (NS 125/hr) I do not believe this patient need to be transfused at this point If the patient H/H is stable tomorrow, I would prepare him for EGD/colonoscopy on Monday.
[2017-08-31 18:58] LABS: ABSOLUTE BASOPHILS # (AUTO) 0.1 10^3/uL (0.0-0.2); ABSOLUTE LYMPHOCYTES (AUTO) 1.8 10^3/uL (0.5-4.7); ABSOLUTE MONOCYTES (AUTO) 0.5 10^3/uL (0.1-1.4); ABSOLUTE NEUT (AUTO) 7.9 10^3/uL (1.7-8.2); BASOPHILS % (AUTO) 0.7 % (0-2); EOSINOPHILS % (AUTO) 0.1 % (0-6); HEMATOCRIT 23.7 % (37.9-51.0); LYMPHOCYTES % (AUTO) 17.4 % (13-45); MEAN CORPUSCULAR HEMOGLOBIN 31.6 pg (27.0-33.4); MEAN CORPUSCULAR HGB CONC 33.8 g/dL (32.0-36.0); MEAN CORPUSCULAR VOLUME 93 fl (80-97); MONOCYTES % (AUTO) 4.8 % (3-13); PLATELET COUNT 195 10^3/uL (150-450); RED BLOOD COUNT 2.54 10^6/uL (4.35-5.55); TOTAL CELLS COUNTED % (AUTO) 100 %; WHITE BLOOD COUNT 10.2 10^3/uL (4.0-10.5)
[2017-08-31] MEDS ORDERED: PANTOPRAZOLE SODIUM 40 MG VIAL IV ONE ×2 (19:22)
[2017-08-31] MEDS ORDERED: PANTOPRAZOLE SODIUM 40 MG VIAL IV PRN (19:22)
[2017-08-31] MEDS ORDERED: NORMAL SALINE 250 ML IV PRN ×2 (19:23)
[2017-08-31] MEDS ORDERED: IPRATROPIUM/ALBUTEROL 0.5-2.5 MG/3 ML AMPUL NEB PRN (19:26)
[2017-08-31] MEDS ORDERED: ONDANSETRON HCL INJ/PF 4 MG/2 ML SDV IV PRN (19:26)
[2017-08-31] MEDS: NORMAL SALINE 1000 ML 1,000 ML IV SCH ×2 (19:59→23:28)
[2017-08-31] MEDS: NORMAL SALINE 100 ML with PANTOPRAZOLE SODIUM 80 MG IV PRN ×2 (19:59)
[2017-08-31 20:00] LABS: ABSOLUTE MONOCYTES (AUTO) 0.5 10^3/uL (0.1-1.4); ABSOLUTE NEUT (AUTO) 7.3 10^3/uL (1.7-8.2); BASOPHILS % (AUTO) 0.2 % (0-2); EOSINOPHILS % (AUTO) 0.1 % (0-6); HEMATOCRIT 24.1 % (37.9-51.0); HEMOGLOBIN 8.3 g/dL (13.5-17.0); LYMPHOCYTES % (AUTO) 20.7 % (13-45); MEAN CORPUSCULAR HEMOGLOBIN 31.9 pg (27.0-33.4); MEAN CORPUSCULAR HGB CONC 34.6 g/dL (32.0-36.0); MEAN CORPUSCULAR VOLUME 92 fl (80-97); MONOCYTES % (AUTO) 4.7 % (3-13); PLATELET COUNT 203 10^3/uL (150-450); RED BLOOD COUNT 2.61 10^6/uL (4.35-5.55); RED CELL DISTRIBUTION WIDTH 13.9 % (11.5-14.0); SEGMENTED NEUTROPHILS % (AUTO) 74.3 % (42-78); TOTAL CELLS COUNTED % (AUTO) 100 %; WHITE BLOOD COUNT 9.9 10^3/uL (4.0-10.5)
[2017-08-31] MEDS ORDERED: PANTOPRAZOLE SODIUM 80 MG in NORMAL SALINE 100 ML IV ONE (20:00)
--- NOTE | 2017-08-31 22:51 | EKG REPORT ---
SEVERITY:- ABNORMAL ECG - SINUS TACHYCARDIA INFERIOR INFARCT, AGE INDETERMINATE : Confirmed by: Che Leyva 31-Aug-2017 22:50:32
[2017-09-01] MEDS: NORMAL SALINE 1000 ML 1,000 ML IV PRN ×2 (01:48→16:35)
[2017-09-01 02:16] LABS: ABSOLUTE BASOPHILS # (AUTO) 0.1 10^3/uL (0.0-0.2); ABSOLUTE EOSINOPHILS # (AUTO) 0.1 10^3/uL (0.0-0.6); ABSOLUTE LYMPHOCYTES (AUTO) 3.1 10^3/uL (0.5-4.7); ABSOLUTE MONOCYTES (AUTO) 0.6 10^3/uL (0.1-1.4); ABSOLUTE NEUT (AUTO) 5.5 10^3/uL (1.7-8.2); BASOPHILS % (AUTO) 0.9 % (0-2); EOSINOPHILS % (AUTO) 0.8 % (0-6); HEMATOCRIT 26.7 % (37.9-51.0); HEMOGLOBIN 9.2 g/dL (13.5-17.0); LYMPHOCYTES % (AUTO) 33.3 % (13-45); MEAN CORPUSCULAR HEMOGLOBIN 31.7 pg (27.0-33.4); MEAN CORPUSCULAR HGB CONC 34.5 g/dL (32.0-36.0); MEAN CORPUSCULAR VOLUME 92 fl (80-97); PLATELET COUNT 165 10^3/uL (150-450); RED BLOOD COUNT 2.92 10^6/uL (4.35-5.55); RED CELL DISTRIBUTION WIDTH 15.1 % (11.5-14.0); TOTAL CELLS COUNTED % (AUTO) 100 %; WHITE BLOOD COUNT 9.3 10^3/uL (4.0-10.5)
--- NOTE | 2017-09-01 04:19 | PDOC H&P ---
History of Present Illness Admission Date/PCP: 08/31/17 19:45 Patient complains of: Lightheaded History of Present Illness: MYRNA MILTON is a 47 year old male with history of coronary artery disease requiring stent in October 2016, CVA with residual left-sided weakness, CVA 10 days ago requiring TPA without residual deficit and seizure disorder. Patient recently placed on aspirin and Plavix secondary to the above now presenting with lightheadedness and black stools. He is noted to have heme positive stools , tachycardia and a drop of his hemoglobin of 4.4 units in 10 days. He denies previous episode of GI bleed, admits some nausea without vomiting no bright red blood per rectum dark or pink colored urine. He started on IV Protonix and referred to the hospitalist for admission. Past Medical History Cardiac Medical History: Reports: Coronary Artery Disease, Myocardial Infarction , Hyperlipidema, Hypertension Neurological Medical History: Reports: Ischemic CVA, Seizures Musculoskeltal Medical History: Reports: Arthritis Psychiatric Medical History: Reports: Depression Past Surgical History Past Surgical History: Reports: Cardiac Catheterization, Orthopedic Surgery - Knee surgery, Tonsillectomy Social History Information Source: Patient, [facility] Records Lives with: Alone Smoking Status: Former Smoker Frequency of Alcohol Use: None Hx Recreational Drug Use: No Drugs: None Hx Prescription Drug Abuse: No Family History Family History: Other - Unknown to the patient Parental Family History Reviewed: Yes Children Family History Reviewed: Yes Sibling(s) Family History Reviewed.: Yes Medication/Allergy Home Medications: Aspirin [Adult Low Dose Aspirin EC] 81 mg PO DAILY 08/31/17 Atorvastatin Calcium [Lipitor 80 mg Tablet] 80 mg PO QHS 08/31/17 Cholecalciferol (Vitamin D3) [Vitamin D3] 2,000 unit PO DAILY 08/31/17 Clopidogrel Bisulfate [Plavix 75 mg Tablet] 75 mg PO DAILY 08/31/17 Cyanocobalamin (Vitamin B-12) [Vitamin B-12] 1,000 mcg PO DAILY 08/31/17 Diclofenac Sodium [Voltaren 50 mg Tablet.dr] 50 mg PO BIDP PRN 08/31/17 Diclofenac Sodium [Voltaren] 2 gm TOP QID 08/31/17 Fluticasone Propionate [Flonase Nasal [place] 50 Mcg/[place] 16 gm] 2 spray NASL DAILY 08/31/17 Metoprolol Tartrate [Lopressor 50 mg Tablet] 25 mg PO BID 08/31/17 Nitroglycerin [Nitrostat 0.4 mg (1/150 Gr) Tabs 25/Bottle] 0.4 mg SL Q5MP PRN Phenytoin Sodium Extended [Dilantin 100 mg Capsule.er] 200 mg PO QAM 08/31/17 Phenytoin Sodium Extended [Dilantin 100 mg Capsule.er] 300 mg PO QHS 08/31/17 Allergies/Adverse Reactions: cabbage Allergy (Verified 08/31/17 12:29) RAPID HEARTBEAT carbamazepine [From Tegretol] Allergy (Verified 08/31/17 12:29) phenobarbital Allergy (Verified 08/31/17 12:29) Physical Exam Vital Signs: Temp Pulse Resp BP Pulse Ox 97.2 F 94 12 109/74 99 09/01/17 00:29 09/01/17 00:29 09/01/17 02:00 09/01/17 01:23 09/01/17 02:00 Intake & Output 08/30/17 08/31/17 09/01/17 11:59 11:59 11:59 Intake Total 600 Output Total 350 Balance 250 Weight 95.6 kg General appearance: PRESENT: cooperative, mild distress, obese, other - Pale. ABSENT: disheveled, severe distress Head exam: PRESENT: atraumatic, normocephalic Eye exam: PRESENT: conjunctiva pale, EOMI, PERRLA. ABSENT: scleral icterus Ear exam: PRESENT: normal external ear exam Mouth exam: PRESENT: moist, tongue midline Neck exam: ABSENT: carotid bruit, JVD, lymphadenopathy, thyromegaly Respiratory exam: PRESENT: clear to auscultation lorne. ABSENT: rales, rhonchi, wheezes Cardiovascular exam: PRESENT: tachycardia. ABSENT: diastolic murmur, rubs, systolic murmur Pulses: PRESENT: normal dorsalis pedis pul Vascular exam: PRESENT: normal capillary refill GI/Abdominal exam: PRESENT: normal bowel sounds, soft, tenderness - Epigastric tenderness. ABSENT: distended, guarding, mass, organolmegaly, rebound Rectal exam: PRESENT: deferred. ABSENT: heme (-) stool Extremities exam: PRESENT: full ROM. ABSENT: calf tenderness, clubbing, pedal edema Neurological exam: PRESENT: alert, awake, oriented to person, oriented to place , oriented to time, oriented to situation, CN II-XII grossly intact. ABSENT: motor sensory deficit Psychiatric exam: PRESENT: appropriate affect, normal mood. ABSENT: homicidal ideation, suicidal ideation Skin exam: PRESENT: dry, intact, warm. ABSENT: cyanosis, rash Results Laboratory Results: 09/01/17 02:10 09/01/17 02:10 WBC 9.3 RBC 2.92 L Hgb 9.2 L Hct 26.7 L MCV 92 MCH 31.7 MCHC 34.5 RDW 15.1 H Plt Count 165 Seg Neutrophils % 59.0 Lymphocytes % 33.3 Monocytes % 6.0 Eosinophils % 0.8 Basophils % 0.9 Absolute Neutrophils 5.5 Absolute Lymphocytes 3.1 Absolute Monocytes 0.6 Absolute Eosinophils 0.1 Absolute Basophils 0.1 Impressions: Abdomen/Pelvis CT 08/31/17 00:00 IMPRESSION: NO SIGNIFICANT OR ACUTE FINDING IN THE ABDOMEN OR PELVIS ON CT SCAN WITH IV CONTRAST. Assessment & Plan - Diagnosis (1) GI bleed Qualifiers: GI bleed type/associated pathology: unspecified gastrointestinal hemorrhage type Qualified Code(s): K92.2 - Gastrointestinal hemorrhage, unspecified Is this a current diagnosis for this admission?: Yes Plan: Upper GI bleed likely secondary to full dose aspirin, Plavix Voltaren p.o. we will discontinue Voltaren, change aspirin to 81 mg per day. Continue IV Protonix, transfuse 2 units of packed red blood cells, serial CBC. Surgical consultation (2) Anemia Qualifiers: Anemia type: other cause Other causes of anemia: acute posthemorrhagic Qualified Code(s): D62 - Acute posthemorrhagic anemia Is this a current diagnosis for this admission?: Yes Plan: Secondary to #1 follow-up CBC transfuse as needed precipitous drop of hemoglobin. (3) CAD (coronary artery disease) Qualifiers: Coronary Disease-Associated Artery/Lesion type: unspecified vessel or lesion type [place] vs. transplanted heart: [place] heart Associated angina: with stable angina Qualified Code(s): I25.118 - Atherosclerotic heart disease of [place] coronary artery with other forms of angina pectoris Is this a current diagnosis for this admission?: Yes Plan: Continue aspirin Plavix (4) Ischemic cerebrovascular accident (CVA) Is this a current diagnosis for this admission?: Yes Plan: Continue aspirin and Plavix - Time Time Spent: 50 to 70 Minutes - Inpatient Certification Medical Necessity: Need Close Monitoring Due to Risk of Patient Decompensation
[2017-09-01] MEDS: NORMAL SALINE 100 ML with PANTOPRAZOLE SODIUM 80 MG IV PRN ×4 (05:54→15:07)
[2017-09-01 07:56] LABS: ABSOLUTE EOSINOPHILS # (AUTO) 0.1 10^3/uL (0.0-0.6); ABSOLUTE LYMPHOCYTES (AUTO) 2.1 10^3/uL (0.5-4.7); ABSOLUTE MONOCYTES (AUTO) 0.4 10^3/uL (0.1-1.4); ABSOLUTE NEUT (AUTO) 5.7 10^3/uL (1.7-8.2); BASOPHILS % (AUTO) 0.6 % (0-2); EOSINOPHILS % (AUTO) 1.1 % (0-6); HEMATOCRIT 27.1 % (37.9-51.0); HEMOGLOBIN 9.4 g/dL (13.5-17.0); MEAN CORPUSCULAR HEMOGLOBIN 31.6 pg (27.0-33.4); MEAN CORPUSCULAR HGB CONC 34.7 g/dL (32.0-36.0); MEAN CORPUSCULAR VOLUME 91 fl (80-97); MONOCYTES % (AUTO) 4.7 % (3-13); PLATELET COUNT 171 10^3/uL (150-450); RED BLOOD COUNT 2.98 10^6/uL (4.35-5.55); RED CELL DISTRIBUTION WIDTH 15.4 % (11.5-14.0); SEGMENTED NEUTROPHILS % (AUTO) 68.6 % (42-78); TOTAL CELLS COUNTED % (AUTO) 100 %; WHITE BLOOD COUNT 8.3 10^3/uL (4.0-10.5)
[2017-09-01 08:41] LABS: ANION GAP 8 (5-19); CARBON DIOXIDE 21 mmol/L (22-30); CHLORIDE 113 mmol/L (98-107); GLUCOSE 100 mg/dL (75-110); POTASSIUM 4.1 mmol/L (3.6-5.0); SODIUM 142.3 mmol/L (137-145)
[2017-09-01 09:01] LABS: BLOOD UREA NITROGEN 12 mg/dL (7-20)
--- NOTE | 2017-09-01 10:22 | PDOC PROGRESS REPORT ---
Subjective Progress Note for:: 09/01/17 Subjective:: no c/o Reason For Visit: UPPER GI BLEED Physical Exam Vital Signs: Temp Pulse Resp BP Pulse Ox 97.2 F 98 15 115/78 100 09/01/17 00:29 09/01/17 07:39 09/01/17 10:00 09/01/17 09:34 09/01/17 10:00 Intake & Output 08/31/17 09/01/17 09/02/17 06:59 06:59 06:59 Intake Total 2600 Output Total 350 Balance 2250 Weight 95.5 kg General appearance: PRESENT: no acute distress, cooperative GI/Abdominal exam: PRESENT: soft Results Laboratory Results: 09/01/17 07:48 09/01/17 07:48 09/01/17 09/01/17 09/01/17 02:10 07:48 07:48 WBC 9.3 8.3 RBC 2.92 L 2.98 L Hgb 9.2 L 9.4 L Hct 26.7 L 27.1 L MCV 92 91 MCH 31.7 31.6 MCHC 34.5 34.7 RDW 15.1 H 15.4 H Plt Count 165 171 Seg Neutrophils % 59.0 68.6 Lymphocytes % 33.3 25.0 Monocytes % 6.0 4.7 Eosinophils % 0.8 1.1 Basophils % 0.9 0.6 Absolute Neutrophils 5.5 5.7 Absolute Lymphocytes 3.1 2.1 Absolute Monocytes 0.6 0.4 Absolute Eosinophils 0.1 0.1 Absolute Basophils 0.1 0.0 Sodium 142.3 Potassium 4.1 Chloride 113 H Carbon Dioxide 21 L Anion Gap 8 BUN 12 D Creatinine 0.55 Est GFR ( Amer) > 60 Est GFR (Non-Af Amer) > 60 Glucose 100 Calcium 8.0 L Impressions: Abdomen/Pelvis CT 08/31/17 00:00 IMPRESSION: NO SIGNIFICANT OR ACUTE FINDING IN THE ABDOMEN OR PELVIS ON CT SCAN WITH IV CONTRAST. Assessment & Plan - Diagnosis (2) Anemia Qualifiers: Anemia type: other cause Other causes of anemia: acute posthemorrhagic Qualified Code(s): D62 - Acute posthemorrhagic anemia Is this a current diagnosis for this admission?: Yes - Plan Summary Plan Summary: A/ Anemia unknown cause Hx of melena stable H/H since admission P/ EGD and colonoscopy with biopsy in AM Procedure, risks, benefitrs d/w patient, he understands and decides to proceed Bowel preop today NPO after midnight
[2017-09-01] MEDS ORDERED: BISACODYL 5 MG TABEC PO ONE (11:30)
[2017-09-01 13:32] LABS: ABSOLUTE EOSINOPHILS # (AUTO) 0.1 10^3/uL (0.0-0.6); ABSOLUTE LYMPHOCYTES (AUTO) 1.8 10^3/uL (0.5-4.7); ABSOLUTE MONOCYTES (AUTO) 0.4 10^3/uL (0.1-1.4); ABSOLUTE NEUT (AUTO) 4.7 10^3/uL (1.7-8.2); BASOPHILS % (AUTO) 0.4 % (0-2); EOSINOPHILS % (AUTO) 1.8 % (0-6); HEMATOCRIT 25.9 % (37.9-51.0); HEMOGLOBIN 8.9 g/dL (13.5-17.0); LYMPHOCYTES % (AUTO) 25.3 % (13-45); MEAN CORPUSCULAR HEMOGLOBIN 31.6 pg (27.0-33.4); MEAN CORPUSCULAR HGB CONC 34.4 g/dL (32.0-36.0); MEAN CORPUSCULAR VOLUME 92 fl (80-97); MONOCYTES % (AUTO) 5.9 % (3-13); PLATELET COUNT 162 10^3/uL (150-450); RED BLOOD COUNT 2.82 10^6/uL (4.35-5.55); RED CELL DISTRIBUTION WIDTH 15.3 % (11.5-14.0); SEGMENTED NEUTROPHILS % (AUTO) 66.6 % (42-78); TOTAL CELLS COUNTED % (AUTO) 100 %; WHITE BLOOD COUNT 7.1 10^3/uL (4.0-10.5)
[2017-09-01] MEDS ORDERED: PEG 3350/NA SULF,BICARB,CL/KCL 4000 ML PO PRN (16:00)
--- NOTE | 2017-09-01 16:35 | PDOC PROGRESS REPORT ---
Subjective Progress Note for:: 09/01/17 Subjective:: No adverse events overnight. No new complaints. He had a dark bowel movement here but his blood counts and blood pressure been stable. He has had no abdominal pain. No nausea or vomiting. No fevers. He denies using any NSAIDs and said he has not had a drink in 44 years. He is a non-smoker. Reason For Visit: UPPER GI BLEED Physical Exam Vital Signs: Temp Pulse Resp BP Pulse Ox 97.2 F 72 14 129/64 H 100 09/01/17 00:29 09/01/17 15:37 09/01/17 15:37 09/01/17 11:34 09/01/17 15:37 Intake & Output 08/31/17 09/01/17 09/02/17 06:59 06:59 06:59 Intake Total 2600 825 Output Total 350 750 Balance 2250 75 Weight 95.5 kg General appearance: PRESENT: no acute distress, obese, well-developed Head exam: PRESENT: atraumatic, normocephalic Respiratory exam: PRESENT: clear to auscultation lorne. ABSENT: rales, rhonchi, wheezes Cardiovascular exam: PRESENT: RRR. ABSENT: diastolic murmur, rubs, systolic murmur Vascular exam: PRESENT: normal capillary refill GI/Abdominal exam: PRESENT: normal bowel sounds, soft. ABSENT: distended, guarding, mass, organolmegaly, rebound, tenderness Extremities exam: PRESENT: full ROM. ABSENT: calf tenderness, clubbing, pedal edema Results Laboratory Results: 09/01/17 13:23 09/01/17 07:48 09/01/17 09/01/17 09/01/17 02:10 07:48 07:48 WBC 9.3 8.3 RBC 2.92 L 2.98 L Hgb 9.2 L 9.4 L Hct 26.7 L 27.1 L MCV 92 91 MCH 31.7 31.6 MCHC 34.5 34.7 RDW 15.1 H 15.4 H Plt Count 165 171 Seg Neutrophils % 59.0 68.6 Lymphocytes % 33.3 25.0 Monocytes % 6.0 4.7 Eosinophils % 0.8 1.1 Basophils % 0.9 0.6 Absolute Neutrophils 5.5 5.7 Absolute Lymphocytes 3.1 2.1 Absolute Monocytes 0.6 0.4 Absolute Eosinophils 0.1 0.1 Absolute Basophils 0.1 0.0 Sodium 142.3 Potassium 4.1 Chloride 113 H Carbon Dioxide 21 L Anion Gap 8 BUN 12 D Creatinine 0.55 Est GFR ( Amer) > 60 Est GFR (Non-Af Amer) > 60 Glucose 100 Calcium 8.0 L 09/01/17 13:23 WBC 7.1 RBC 2.82 L Hgb 8.9 L Hct 25.9 L MCV 92 MCH 31.6 MCHC 34.4 RDW 15.3 H Plt Count 162 Seg Neutrophils % 66.6 Lymphocytes % 25.3 Monocytes % 5.9 Eosinophils % 1.8 Basophils % 0.4 Absolute Neutrophils 4.7 Absolute Lymphocytes 1.8 Absolute Monocytes 0.4 Absolute Eosinophils 0.1 Absolute Basophils 0.0 Sodium Potassium Chloride Carbon Dioxide Anion Gap BUN Creatinine Est GFR ( Amer) Est GFR (Non-Af Amer) Glucose Calcium Impressions: Abdomen/Pelvis CT 08/31/17 00:00 IMPRESSION: NO SIGNIFICANT OR ACUTE FINDING IN THE ABDOMEN OR PELVIS ON CT SCAN WITH IV CONTRAST. Assessment & Plan - Diagnosis (1) Acute upper GI bleeding Is this a current diagnosis for this admission?: Yes Plan: He is getting serial H&H's. We will transfuse if needed. We will also get him on a Protonix drip. He is on clear liquids right now we anticipate endoscopic evaluation tomorrow. (2) Acute blood loss anemia Is this a current diagnosis for this admission?: Yes Plan: His hemoglobin dropped up 4 points whenever he was admitted and has been given 2 units since then. We will keep a close eye on his blood counts and will transfuse again if needed. Endoscopic evaluations pending. - Time Time Spent with patient: 25-34 minutes Medications reviewed and adjusted accordingly: Yes
[2017-09-01 19:19] LABS: ABSOLUTE EOSINOPHILS # (AUTO) 0.1 10^3/uL (0.0-0.6); ABSOLUTE LYMPHOCYTES (AUTO) 2.5 10^3/uL (0.5-4.7); ABSOLUTE MONOCYTES (AUTO) 0.4 10^3/uL (0.1-1.4); ABSOLUTE NEUT (AUTO) 5.1 10^3/uL (1.7-8.2); BASOPHILS % (AUTO) 0.5 % (0-2); EOSINOPHILS % (AUTO) 1.4 % (0-6); HEMATOCRIT 27.4 % (37.9-51.0); HEMOGLOBIN 9.3 g/dL (13.5-17.0); LYMPHOCYTES % (AUTO) 30.5 % (13-45); MEAN CORPUSCULAR HEMOGLOBIN 31.2 pg (27.0-33.4); MEAN CORPUSCULAR HGB CONC 33.9 g/dL (32.0-36.0); MEAN CORPUSCULAR VOLUME 92 fl (80-97); MONOCYTES % (AUTO) 4.9 % (3-13); PLATELET COUNT 177 10^3/uL (150-450); RED BLOOD COUNT 2.97 10^6/uL (4.35-5.55); RED CELL DISTRIBUTION WIDTH 15.1 % (11.5-14.0); SEGMENTED NEUTROPHILS % (AUTO) 62.7 % (42-78); TOTAL CELLS COUNTED % (AUTO) 100 %; WHITE BLOOD COUNT 8.2 10^3/uL (4.0-10.5)
[2017-09-02 01:29] LABS: ABSOLUTE EOSINOPHILS # (AUTO) 0.1 10^3/uL (0.0-0.6); ABSOLUTE LYMPHOCYTES (AUTO) 2.4 10^3/uL (0.5-4.7); ABSOLUTE MONOCYTES (AUTO) 0.4 10^3/uL (0.1-1.4); ABSOLUTE NEUT (AUTO) 3.8 10^3/uL (1.7-8.2); BASOPHILS % (AUTO) 0.4 % (0-2); HEMATOCRIT 25.5 % (37.9-51.0); HEMOGLOBIN 8.6 g/dL (13.5-17.0); LYMPHOCYTES % (AUTO) 35.5 % (13-45); MEAN CORPUSCULAR HEMOGLOBIN 30.8 pg (27.0-33.4); MEAN CORPUSCULAR HGB CONC 33.6 g/dL (32.0-36.0); MEAN CORPUSCULAR VOLUME 92 fl (80-97); MONOCYTES % (AUTO) 5.6 % (3-13); PLATELET COUNT 174 10^3/uL (150-450); RED BLOOD COUNT 2.79 10^6/uL (4.35-5.55); RED CELL DISTRIBUTION WIDTH 15.5 % (11.5-14.0); SEGMENTED NEUTROPHILS % (AUTO) 56.5 % (42-78); TOTAL CELLS COUNTED % (AUTO) 100 %; WHITE BLOOD COUNT 6.7 10^3/uL (4.0-10.5)
[2017-09-02] MEDS: NORMAL SALINE 100 ML with PANTOPRAZOLE SODIUM 80 MG IV PRN ×4 (05:05→12:13)
[2017-09-02] MEDS: NORMAL SALINE 1000 ML 1,000 ML IV PRN (05:05)
[2017-09-02 08:34] LABS: ABSOLUTE EOSINOPHILS # (AUTO) 0.1 10^3/uL (0.0-0.6); ABSOLUTE LYMPHOCYTES (AUTO) 1.7 10^3/uL (0.5-4.7); ABSOLUTE MONOCYTES (AUTO) 0.4 10^3/uL (0.1-1.4); ABSOLUTE NEUT (AUTO) 3.7 10^3/uL (1.7-8.2); BASOPHILS % (AUTO) 0.4 % (0-2); EOSINOPHILS % (AUTO) 1.8 % (0-6); HEMATOCRIT 27.3 % (37.9-51.0); HEMOGLOBIN 9.3 g/dL (13.5-17.0); LYMPHOCYTES % (AUTO) 29.3 % (13-45); MEAN CORPUSCULAR HEMOGLOBIN 31.4 pg (27.0-33.4); MEAN CORPUSCULAR HGB CONC 34.1 g/dL (32.0-36.0); MEAN CORPUSCULAR VOLUME 92 fl (80-97); PLATELET COUNT 183 10^3/uL (150-450); RED BLOOD COUNT 2.97 10^6/uL (4.35-5.55); RED CELL DISTRIBUTION WIDTH 15.6 % (11.5-14.0); SEGMENTED NEUTROPHILS % (AUTO) 62.5 % (42-78); TOTAL CELLS COUNTED % (AUTO) 100 %; WHITE BLOOD COUNT 5.9 10^3/uL (4.0-10.5)
[2017-09-02] MEDS ORDERED: DIPHENHYDRAMINE HCL 50 MG/ML VIAL ONE (08:43)
[2017-09-02] MEDS ORDERED: FLUMAZENIL INJ 0.5 MG/5 ML VIAL ONE (08:44)
[2017-09-02] MEDS ORDERED: NALOXONE HCL INJ/PF 0.4 MG/1 ML SDV ONE (08:44)
[2017-09-02] MEDS ORDERED: ONDANSETRON HCL INJ/PF 4 MG/2 ML SDV ONE (08:44)
[2017-09-02] MEDS ORDERED: GLUCAGON,HUMAN RECOMB 1 MG INJ ONE (08:45)
[2017-09-02] MEDS ORDERED: EPINEPHRINE INJ 1 MG/10 ML DISP.SYRIN ONE (08:45)
[2017-09-02 08:52] LABS: ANION GAP 8 (5-19); BLOOD UREA NITROGEN 4 mg/dL (7-20); CALCIUM 8.5 mg/dL (8.4-10.2); CARBON DIOXIDE 25 mmol/L (22-30); CHLORIDE 111 mmol/L (98-107); GLUCOSE 87 mg/dL (75-110); POTASSIUM 3.7 mmol/L (3.6-5.0); SODIUM 143.8 mmol/L (137-145)
[2017-09-02] MEDS: MIDAZOLAM 2 MG/2 ML INJ ONE ×2 (11:14→11:18)
[2017-09-02] MEDS: FENTANYL CITRATE INJ/PF 100 MCG/2 ML AMPUL ONE ×2 (11:16→11:20)
--- NOTE | 2017-09-02 11:43 | Operative Report ---
Nonrecallable Operative Report DATE OF SURGERY: 09/02/17 PREOPERATIVE DIAGNOSIS: anemia POSTOPERATIVE DIAGNOSIS: same. Negative EGD OPERATION: EGD SURGEON: RONALD MARTIN ANESTHESIA: Moderate Sedation - provided by Dr. Martin (Versed 3 mg OV; Fentanyl 75 mcg IV TISSUE REMOVED OR ALTERED: none COMPLICATIONS: none ESTIMATED BLOOD LOSS: n/a INTRAOPERATIVE FINDINGS: normal esophagus, stomach and duodenum up the 3rd portion PROCEDURE: see dictation
[2017-09-02 14:05] LABS: ABSOLUTE BASOPHILS # (AUTO) 0.1 10^3/uL (0.0-0.2); ABSOLUTE EOSINOPHILS # (AUTO) 0.1 10^3/uL (0.0-0.6); ABSOLUTE LYMPHOCYTES (AUTO) 2.2 10^3/uL (0.5-4.7); ABSOLUTE MONOCYTES (AUTO) 0.4 10^3/uL (0.1-1.4); ABSOLUTE NEUT (AUTO) 3.7 10^3/uL (1.7-8.2); BASOPHILS % (AUTO) 1.1 % (0-2); EOSINOPHILS % (AUTO) 1.9 % (0-6); HEMATOCRIT 28.4 % (37.9-51.0); HEMOGLOBIN 9.8 g/dL (13.5-17.0); LYMPHOCYTES % (AUTO) 34.2 % (13-45); MEAN CORPUSCULAR HEMOGLOBIN 31.6 pg (27.0-33.4); MEAN CORPUSCULAR HGB CONC 34.6 g/dL (32.0-36.0); MEAN CORPUSCULAR VOLUME 91 fl (80-97); MONOCYTES % (AUTO) 5.9 % (3-13); PLATELET COUNT 182 10^3/uL (150-450); RED BLOOD COUNT 3.12 10^6/uL (4.35-5.55); RED CELL DISTRIBUTION WIDTH 15.2 % (11.5-14.0); SEGMENTED NEUTROPHILS % (AUTO) 56.9 % (42-78); TOTAL CELLS COUNTED % (AUTO) 100 %; WHITE BLOOD COUNT 6.4 10^3/uL (4.0-10.5)
--- NOTE | 2017-09-02 14:43 | PDOC PROGRESS REPORT ---
Subjective Progress Note for:: 09/02/17 Subjective:: He refused to his bowel prep last night because he said he could not drink the MiraLAX because it did not taste very good. He has had no more signs of any dark stools. No hematemesis. He had his EGD this morning and surgeon told me it was pretty unremarkable. Reason For Visit: UPPER GI BLEED Physical Exam Vital Signs: Temp Pulse Resp BP Pulse Ox 98.0 F 92 19 131/79 H 98 09/02/17 12:11 09/02/17 12:11 09/02/17 12:11 09/02/17 12:11 09/02/17 12:11 Intake & Output 09/01/17 09/02/17 09/03/17 06:59 06:59 06:59 Intake Total 2600 3577 100 Output Total 350 2300 1700 Balance 2250 1277 -1600 Weight 95.5 kg 96.8 kg General appearance: PRESENT: no acute distress, obese, well-developed Respiratory exam: PRESENT: clear to auscultation lorne. ABSENT: rales, rhonchi, wheezes Cardiovascular exam: PRESENT: RRR. ABSENT: diastolic murmur, rubs, systolic murmur GI/Abdominal exam: PRESENT: normal bowel sounds, soft. ABSENT: distended, guarding, mass, organolmegaly, rebound, tenderness Extremities exam: PRESENT: full ROM. ABSENT: calf tenderness, clubbing, pedal edema Neurological exam: PRESENT: alert, awake, oriented to person, oriented to place , oriented to time Results Laboratory Results: 09/02/17 08:00 09/01/17 09/02/17 09/02/17 19:09 01:22 08:00 WBC 8.2 6.7 RBC 2.97 L 2.79 L Hgb 9.3 L 8.6 L Hct 27.4 L 25.5 L MCV 92 92 MCH 31.2 30.8 MCHC 33.9 33.6 RDW 15.1 H 15.5 H Plt Count 177 174 Seg Neutrophils % 62.7 56.5 Lymphocytes % 30.5 35.5 Monocytes % 4.9 5.6 Eosinophils % 1.4 2.0 Basophils % 0.5 0.4 Absolute Neutrophils 5.1 3.8 Absolute Lymphocytes 2.5 2.4 Absolute Monocytes 0.4 0.4 Absolute Eosinophils 0.1 0.1 Absolute Basophils 0.0 0.0 Sodium 143.8 Potassium 3.7 Chloride 111 H Carbon Dioxide 25 Anion Gap 8 BUN 4 L Creatinine 0.56 Est GFR ( Amer) > 60 Est GFR (Non-Af Amer) > 60 Glucose 87 Calcium 8.5 09/02/17 08:00 WBC 5.9 RBC 2.97 L Hgb 9.3 L Hct 27.3 L MCV 92 MCH 31.4 MCHC 34.1 RDW 15.6 H Plt Count 183 Seg Neutrophils % 62.5 Lymphocytes % 29.3 Monocytes % 6.0 Eosinophils % 1.8 Basophils % 0.4 Absolute Neutrophils 3.7 Absolute Lymphocytes 1.7 Absolute Monocytes 0.4 Absolute Eosinophils 0.1 Absolute Basophils 0.0 Sodium Potassium Chloride Carbon Dioxide Anion Gap BUN Creatinine Est GFR ( Amer) Est GFR (Non-Af Amer) Glucose Calcium Impressions: Abdomen/Pelvis CT 08/31/17 00:00 IMPRESSION: NO SIGNIFICANT OR ACUTE FINDING IN THE ABDOMEN OR PELVIS ON CT SCAN WITH IV CONTRAST. Assessment & Plan - Diagnosis (1) Acute upper GI bleeding Is this a current diagnosis for this admission?: Yes Plan: He is getting serial H&H's. We will transfuse if needed. We can change the Protonix to twice a day. EGD was unremarkable. Were planning for a colonoscopy , but if that is negative he should probably have a capsule endoscopy because his presentation still looks more like an upper source that was perhaps distal to where we were able to get with the endoscope. At this point the plan is to attempt the bowel prep again tomorrow evening and do the colonoscopy Monday. I had a long talk with patient about not refusing the bowel prep so that we can find out what is going on. (2) Acute blood loss anemia Is this a current diagnosis for this admission?: Yes Plan: His hemoglobin dropped up 4 points whenever he was admitted and has been given 2 units since then. We will keep a close eye on his blood counts and will transfuse again if needed. Colonoscopy pending. - Time Time Spent with patient: 15-24 minutes Medications reviewed and adjusted accordingly: Yes
--- NOTE | 2017-09-02 17:40 | OPERATIVE REPORT E ---
Operative Report NAME: MYRNA MILTON : 1970 AGE: 47Y DATE OF SURGERY: ROOM: 306 PREOPERATIVE DIAGNOSES: ANEMIA, UNKNOWN CAUSE. POSTOPERATIVE DIAGNOSES: ANEMIA, UNKNOWN CAUSE. OPERATIONS: Upper esophagogastroduodenoscopy. SURGEON: RONALD MARTIN M.D. WET SILK HANGER: None. ANESTHESIA: IV sedation, IV conscious sedation provided by Dr. Martin; 3 mg of Versed and 75 mcg of fentanyl. ESTIMATED BLOOD LOSS: Minimal. TISSUE REMOVED OR ALTERED: None. COMPLICATIONS: None. INDICATIONS AND FINDINGS: This is a 43-year-old male who presented to the local fire department station complaining of lightheadedness and generalized weakness. He was brought to emergency room where he was found to be anemic and was scheduled to undergo an EGD/colonoscopy, as he had a complaint of hematochezia and melena. The patient was initially scheduled to undergo an upper endoscopy and colonoscopy; however, he refused the bowel prep and only the colonoscopy will be done today. PROCEDURE: It was done in the procedure room. The patient was placed in lateral decubitus. Sedation was done as above. The gastroscope was entered through a mouthpiece into the esophagus. The preparation was good and no masses, polyps, ulcers, diverticuli or mucosal changes were noted. The gastroscope was then retroflexed inside the stomach. The fundus was normal. The GE junction was competent. The instrument was then slowing withdrawn along the esophagus which was normal. The patient tolerated the procedure well and was transferred to the recovery room in satisfactory condition. DICTATING PHYSICIAN: RONALD MARTIN M.D. [id number] [id number] ID: [id number] JOB#: [id number] ACCT: [id number] cc:RONALD MARTIN M.D. > MTDD
[2017-09-03 05:17] LABS: ANION GAP 7 (5-19); BLOOD UREA NITROGEN 5 mg/dL (7-20); CALCIUM 8.4 mg/dL (8.4-10.2); CARBON DIOXIDE 25 mmol/L (22-30); CHLORIDE 111 mmol/L (98-107); GLUCOSE 97 mg/dL (75-110); POTASSIUM 3.6 mmol/L (3.6-5.0); SODIUM 143.4 mmol/L (137-145)
[2017-09-03] MEDS: NORMAL SALINE 100 ML with PANTOPRAZOLE SODIUM 80 MG IV PRN ×4 (08:39→18:35)
--- NOTE | 2017-09-03 11:11 | PDOC PROGRESS REPORT ---
Subjective Progress Note for:: 09/03/17 Subjective:: Patient was admitted with what appears to be GI bleeding. He is scheduled to have a colonoscopy done tomorrow morning. EGD done revealed no significant findings. H&H has been stable. Reason For Visit: UPPER GI BLEED Physical Exam Vital Signs: Temp Pulse Resp BP Pulse Ox 98.0 F 96 16 126/71 H 96 09/03/17 07:52 09/03/17 08:45 09/03/17 08:45 09/03/17 07:52 09/03/17 08:45 Intake & Output 09/02/17 09/03/17 09/04/17 06:59 06:59 06:59 Intake Total 3577 2050 Output Total 2300 3825 Balance 1277 -1775 Weight 96.8 kg 90.8 kg General appearance: PRESENT: no acute distress, well-developed, well-nourished Head exam: PRESENT: atraumatic, normocephalic Eye exam: PRESENT: conjunctiva pink, EOMI, PERRLA. ABSENT: scleral icterus Ear exam: PRESENT: normal external ear exam Mouth exam: PRESENT: moist, tongue midline Neck exam: ABSENT: carotid bruit, JVD, lymphadenopathy, thyromegaly Respiratory exam: PRESENT: clear to auscultation lorne. ABSENT: rales, rhonchi, wheezes Cardiovascular exam: PRESENT: RRR. ABSENT: diastolic murmur, rubs, systolic murmur Pulses: PRESENT: normal dorsalis pedis pul Vascular exam: PRESENT: normal capillary refill GI/Abdominal exam: PRESENT: normal bowel sounds, soft. ABSENT: distended, guarding, mass, organolmegaly, rebound, tenderness Rectal exam: PRESENT: deferred Extremities exam: PRESENT: full ROM. ABSENT: calf tenderness, clubbing, pedal edema Neurological exam: PRESENT: alert, awake, oriented to person, oriented to place , oriented to time, oriented to situation, CN II-XII grossly intact. ABSENT: motor sensory deficit Psychiatric exam: PRESENT: appropriate affect, normal mood. ABSENT: homicidal ideation, suicidal ideation Skin exam: PRESENT: dry, intact, warm. ABSENT: cyanosis, rash Results Laboratory Results: 09/02/17 13:50 09/03/17 04:06 09/02/17 09/03/17 13:50 04:06 WBC 6.4 RBC 3.12 L Hgb 9.8 L Hct 28.4 L MCV 91 MCH 31.6 MCHC 34.6 RDW 15.2 H Plt Count 182 Seg Neutrophils % 56.9 Lymphocytes % 34.2 Monocytes % 5.9 Eosinophils % 1.9 Basophils % 1.1 Absolute Neutrophils 3.7 Absolute Lymphocytes 2.2 Absolute Monocytes 0.4 Absolute Eosinophils 0.1 Absolute Basophils 0.1 Sodium 143.4 Potassium 3.6 Chloride 111 H Carbon Dioxide 25 Anion Gap 7 BUN 5 L Creatinine 0.60 Est GFR ( Amer) > 60 Est GFR (Non-Af Amer) > 60 Glucose 97 Calcium 8.4 Impressions: Abdomen/Pelvis CT 08/31/17 00:00 IMPRESSION: NO SIGNIFICANT OR ACUTE FINDING IN THE ABDOMEN OR PELVIS ON CT SCAN WITH IV CONTRAST. Assessment & Plan - Time Time Spent with patient: 15-24 minutes Medications reviewed and adjusted accordingly: Yes Anticipated discharge: Home Within: within 48 hours - Plan Summary Plan Summary: 1.Acute upper GI bleeding currently with unremarkable EGD. Plan is for your colonoscopy tomorrow morning. Likely will need capsule endoscopy if colonoscopy is negative at this is suspected that he may have had an upper GI source despite a negative EGD. 2.Acute blood loss anemia status post 2 units packed red blood cell. We will continue to follow H&H
[2017-09-03] MEDS: NORMAL SALINE 1000 ML 1,000 ML IV PRN (12:08)
[2017-09-03 12:14] LABS: ABSOLUTE EOSINOPHILS # (AUTO) 0.1 10^3/uL (0.0-0.6); ABSOLUTE LYMPHOCYTES (AUTO) 2.2 10^3/uL (0.5-4.7); ABSOLUTE MONOCYTES (AUTO) 0.3 10^3/uL (0.1-1.4); ABSOLUTE NEUT (AUTO) 3.6 10^3/uL (1.7-8.2); BASOPHILS % (AUTO) 0.1 % (0-2); HEMATOCRIT 25.1 % (37.9-51.0); HEMOGLOBIN 8.7 g/dL (13.5-17.0); LYMPHOCYTES % (AUTO) 35.3 % (13-45); MEAN CORPUSCULAR HGB CONC 34.7 g/dL (32.0-36.0); MEAN CORPUSCULAR VOLUME 92 fl (80-97); MONOCYTES % (AUTO) 5.2 % (3-13); PLATELET COUNT 184 10^3/uL (150-450); RED BLOOD COUNT 2.72 10^6/uL (4.35-5.55); RED CELL DISTRIBUTION WIDTH 15.1 % (11.5-14.0); SEGMENTED NEUTROPHILS % (AUTO) 57.4 % (42-78); TOTAL CELLS COUNTED % (AUTO) 100 %; WHITE BLOOD COUNT 6.2 10^3/uL (4.0-10.5)
--- NOTE | 2017-09-03 16:57 | PDOC PROGRESS REPORT ---
Subjective Progress Note for:: 09/03/17 Subjective:: Pains Right lower quadrant Reason For Visit: UPPER GI BLEED Physical Exam Vital Signs: Temp Pulse Resp BP Pulse Ox 97.1 F 98 17 142/75 H 100 09/03/17 15:24 09/03/17 15:24 09/03/17 15:24 09/03/17 15:24 09/03/17 15:24 Intake & Output 09/02/17 09/03/17 09/04/17 06:59 06:59 06:59 Intake Total 3577 2050 236 Output Total 2300 3825 500 Balance 1277 -1775 -264 Weight 96.8 kg 90.8 kg Exam: abd is soft with mild tenderness RLQ Results Laboratory Results: 09/03/17 04:06 09/03/17 04:06 09/03/17 09/03/17 04:06 04:06 WBC 6.2 RBC 2.72 L Hgb 8.7 L Hct 25.1 L MCV 92 MCH 32.0 MCHC 34.7 RDW 15.1 H Plt Count 184 Seg Neutrophils % 57.4 Lymphocytes % 35.3 Monocytes % 5.2 Eosinophils % 2.0 Basophils % 0.1 Absolute Neutrophils 3.6 Absolute Lymphocytes 2.2 Absolute Monocytes 0.3 Absolute Eosinophils 0.1 Absolute Basophils 0.0 Sodium 143.4 Potassium 3.6 Chloride 111 H Carbon Dioxide 25 Anion Gap 7 BUN 5 L Creatinine 0.60 Est GFR ( Amer) > 60 Est GFR (Non-Af Amer) > 60 Glucose 97 Calcium 8.4 Impressions: Abdomen/Pelvis CT 08/31/17 00:00 IMPRESSION: NO SIGNIFICANT OR ACUTE FINDING IN THE ABDOMEN OR PELVIS ON CT SCAN WITH IV CONTRAST. Assessment & Plan - Time Time Spent with patient: 15-24 minutes - Plan Summary Plan Summary: On bowel prep for colonoscopy tomorrow
[2017-09-04 05:49] LABS: ABSOLUTE EOSINOPHILS # (AUTO) 0.1 10^3/uL (0.0-0.6); ABSOLUTE LYMPHOCYTES (AUTO) 1.6 10^3/uL (0.5-4.7); ABSOLUTE MONOCYTES (AUTO) 0.3 10^3/uL (0.1-1.4); ABSOLUTE NEUT (AUTO) 3.2 10^3/uL (1.7-8.2); BASOPHILS % (AUTO) 0.6 % (0-2); EOSINOPHILS % (AUTO) 2.4 % (0-6); HEMATOCRIT 25.9 % (37.9-51.0); HEMOGLOBIN 9.1 g/dL (13.5-17.0); LYMPHOCYTES % (AUTO) 30.7 % (13-45); MEAN CORPUSCULAR HEMOGLOBIN 32.4 pg (27.0-33.4); MEAN CORPUSCULAR HGB CONC 35.3 g/dL (32.0-36.0); MEAN CORPUSCULAR VOLUME 92 fl (80-97); MONOCYTES % (AUTO) 5.8 % (3-13); PLATELET COUNT 173 10^3/uL (150-450); RED BLOOD COUNT 2.82 10^6/uL (4.35-5.55); SEGMENTED NEUTROPHILS % (AUTO) 60.5 % (42-78); TOTAL CELLS COUNTED % (AUTO) 100 %; WHITE BLOOD COUNT 5.3 10^3/uL (4.0-10.5)
--- NOTE | 2017-09-04 10:30 | PDOC PROGRESS REPORT ---
Subjective Subjective:: No complaints Reason For Visit: UPPER GI BLEED Physical Exam Vital Signs: Temp Pulse Resp BP Pulse Ox 98.1 F 81 18 140/79 H 96 09/04/17 07:54 09/04/17 07:54 09/04/17 07:54 09/04/17 07:54 09/04/17 07:54 Intake & Output 09/03/17 09/04/17 09/05/17 06:59 06:59 06:59 Intake Total 2050 5014 Output Total 3825 1300 Balance -1775 3714 Weight 90.8 kg 91.6 kg General appearance: PRESENT: no acute distress GI/Abdominal exam: PRESENT: other - Soft, no peritoneal signs no rigidity. Results Laboratory Results: 09/04/17 04:36 09/03/17 04:06 09/03/17 09/04/17 04:06 04:36 WBC 6.2 5.3 RBC 2.72 L 2.82 L Hgb 8.7 L 9.1 L Hct 25.1 L 25.9 L MCV 92 92 MCH 32.0 32.4 MCHC 34.7 35.3 RDW 15.1 H 15.0 H Plt Count 184 173 Seg Neutrophils % 57.4 60.5 Lymphocytes % 35.3 30.7 Monocytes % 5.2 5.8 Eosinophils % 2.0 2.4 Basophils % 0.1 0.6 Absolute Neutrophils 3.6 3.2 Absolute Lymphocytes 2.2 1.6 Absolute Monocytes 0.3 0.3 Absolute Eosinophils 0.1 0.1 Absolute Basophils 0.0 0.0 Impressions: Abdomen/Pelvis CT 08/31/17 00:00 IMPRESSION: NO SIGNIFICANT OR ACUTE FINDING IN THE ABDOMEN OR PELVIS ON CT SCAN WITH IV CONTRAST. Assessment & Plan - Diagnosis (1) Acute blood loss anemia Is this a current diagnosis for this admission?: Yes Plan: Gastrointestinal hemorrhage; hemodynamically stable; hemoglobin stable at 9.i status post 2 units packed red blood cells transfused; negative upper endoscopy Recommendations 1. Continue bowel prep 2. Plan for colonoscopy, possible polypectomy possible biopsy. Risks benefits alternatives explained. Patient agrees to proceed.
[2017-09-04] MEDS ORDERED: ONDANSETRON HCL INJ/PF 4 MG/2 ML SDV ONE (12:13)
[2017-09-04] MEDS ORDERED: DIPHENHYDRAMINE HCL 50 MG/ML VIAL ONE (12:13)
[2017-09-04] MEDS ORDERED: FLUMAZENIL INJ 0.5 MG/5 ML VIAL ONE (12:14)
[2017-09-04] MEDS ORDERED: EPINEPHRINE INJ 1 MG/10 ML DISP.SYRIN ONE (12:14)
[2017-09-04] MEDS ORDERED: NALOXONE HCL INJ/PF 0.4 MG/1 ML SDV ONE (12:14)
[2017-09-04] MEDS ORDERED: GLUCAGON,HUMAN RECOMB 1 MG INJ ONE (12:14)
[2017-09-04] MEDS: FENTANYL CITRATE INJ/PF 100 MCG/2 ML AMPUL ONE ×2 (12:42→12:44)
[2017-09-04] MEDS: MIDAZOLAM 2 MG/2 ML INJ ONE ×3 (12:42→12:47)
--- NOTE | 2017-09-04 13:53 | Operative Report ---
Nonrecallable Operative Report DATE OF SURGERY: 09/04/17 PREOPERATIVE DIAGNOSIS: Blood loss anemia POSTOPERATIVE DIAGNOSIS: Hyperplastic polyps of the rectum; no colonic source of GI bleeding OPERATION: Total colonoscopy to cecum with photodocumentation; rectal polypectomy 2 SURGEON: ROBERT HUNTER ANESTHESIA: Moderate Sedation TISSUE REMOVED OR ALTERED: Polyps COMPLICATIONS: None ESTIMATED BLOOD LOSS: Minimal INTRAOPERATIVE FINDINGS: See below PROCEDURE: Obtaining informed consent the patient was taken from the preoperative holding area to the main endoscopy suite where monitoring devices were attached to the patient. Plan and surgical timeout were conducted The patient was placed in the left lateral decubitus position with knees to chest. A perianal examination was performed. There was no visible or palpable anorectal pathology. Sphincter tone was felt to be normal. The flexible adult colonoscope was advanced through the anal rectal canal, all the way to the cecum. Visualization of the cecum was achieved and the ileocecal valve, the appendiceal orifice and transillumination of the anterior abdominal wall. This was an excellent study on the well-prepped bowel. There was a moderate amount of gravel stool in the cecum but this was aspirated; the colonoscope was withdrawn slowly and methodically checked and the mucosa carefully. There was no evidence of tumor, stricture, bleeding . 2 small polyps 15 cm from the anal verge which removed with the cold forceps device, retrieved ; there was no significant bleeding; there was no evidence of diverticuloses. The scope was slowly withdrawn through the anal rectal canal. Complete visualization of the rectum was achieved with photodocumentation. The scope was withdrawn to the patient's anus. The patient tolerated the procedure well and was taken to the recovery area in stable condition. Per surveillance guidelines, patient be appropriate candidate for follow-up colonoscopy in 3 years.
[2017-09-04] MEDS: NORMAL SALINE 1000 ML 1,000 ML IV PRN (18:57)
[2017-09-04] MEDS: NORMAL SALINE 100 ML with PANTOPRAZOLE SODIUM 80 MG IV PRN ×2 (18:58)
[2017-09-05] MEDS: NORMAL SALINE 100 ML with PANTOPRAZOLE SODIUM 80 MG IV PRN ×2 (03:07)
[2017-09-05] MEDS: NORMAL SALINE 1000 ML 1,000 ML IV PRN (03:08)
[2017-09-05 05:41] LABS: ABSOLUTE EOSINOPHILS # (AUTO) 0.1 10^3/uL (0.0-0.6); ABSOLUTE LYMPHOCYTES (AUTO) 1.7 10^3/uL (0.5-4.7); ABSOLUTE MONOCYTES (AUTO) 0.4 10^3/uL (0.1-1.4); ABSOLUTE NEUT (AUTO) 3.6 10^3/uL (1.7-8.2); BASOPHILS % (AUTO) 0.6 % (0-2); EOSINOPHILS % (AUTO) 2.2 % (0-6); HEMATOCRIT 28.5 % (37.9-51.0); HEMOGLOBIN 9.9 g/dL (13.5-17.0); LYMPHOCYTES % (AUTO) 28.6 % (13-45); MEAN CORPUSCULAR HEMOGLOBIN 31.7 pg (27.0-33.4); MEAN CORPUSCULAR HGB CONC 34.7 g/dL (32.0-36.0); MEAN CORPUSCULAR VOLUME 91 fl (80-97); MONOCYTES % (AUTO) 6.7 % (3-13); PLATELET COUNT 210 10^3/uL (150-450); RED BLOOD COUNT 3.12 10^6/uL (4.35-5.55); SEGMENTED NEUTROPHILS % (AUTO) 61.9 % (42-78); TOTAL CELLS COUNTED % (AUTO) 100 %; WHITE BLOOD COUNT 5.8 10^3/uL (4.0-10.5)
--- NOTE | 2017-09-05 07:20 | RADIOLOGY REPORT (SQ) ---
EXAM DESCRIPTION: XR ABDOMEN 2 VIEWS SUPINE ERECT COMPLETED DATE/TME: 09/05/2017 05:21 CLINICAL HISTORY: 47 years, Male, right lower abdominal pain COMPARISON: None. NUMBER OF VIEWS: Two TECHNIQUE: Supine and upright images of the abdomen LIMITATIONS: None. FINDINGS: No intraperitoneal free air. The bowel gas pattern is normal. There are no abnormal calcifications. There is no acute fracture. IMPRESSION: Nonobstructing bowel gas pattern 2010 [facility] [employer]- All Rights Reserved
--- NOTE | 2017-09-05 12:09 | PDOC DISCHARGE SUMMARY ---
General - Admit/Disc Date/PCP Admission Date/Primary Care Provider: 08/31/17 19:45 Discharge Date: 09/05/17 - Discharge Diagnosis (1) Rectal polyp Is this a current diagnosis for this admission?: Yes (2) Acute blood loss anemia Is this a current diagnosis for this admission?: Yes (3) GI bleed Is this a current diagnosis for this admission?: Yes Summary: S/p EGD and Colonoscopy with no evidence of active bleeding. 2 rectal polypectomy were performed. (4) CAD (coronary artery disease) Is this a current diagnosis for this admission?: Yes (5) Hyperlipidemia Is this a current diagnosis for this admission?: Yes (6) Seizure disorder Is this a current diagnosis for this admission?: Yes - Additional Information Resuscitation Status: Full Code Discharge Diet: As Tolerated Discharge Activity: Activity As Tolerated Prescriptions: Esomeprazole Magnesium [Nexium 24Hr] 20 mg PO DAILY #30 capsule.dr Mckeon Medications: Aspirin [Adult Low Dose Aspirin EC] 81 mg PO DAILY 08/31/17 Atorvastatin Calcium [Lipitor 80 mg Tablet] 80 mg PO QHS 08/31/17 Cholecalciferol (Vitamin D3) [Vitamin D3] 2,000 unit PO DAILY 08/31/17 Clopidogrel Bisulfate [Plavix 75 mg Tablet] 75 mg PO DAILY 08/31/17 Cyanocobalamin (Vitamin B-12) [Vitamin B-12] 1,000 mcg PO DAILY 08/31/17 Diclofenac Sodium [Voltaren] 2 gm TOP QID 08/31/17 Fluticasone Propionate [Flonase Nasal Beeler 50 Mcg/Beeler 16 gm] 2 spray NASL DAILY 08/31/17 Metoprolol Tartrate [Lopressor 50 mg Tablet] 25 mg PO BID 08/31/17 Nitroglycerin [Nitrostat 0.4 mg (1/150 Gr) Tabs 25/Bottle] 0.4 mg SL Q5MP PRN Phenytoin Sodium Extended [Dilantin 100 mg Capsule.er] 200 mg PO QAM 08/31/17 Phenytoin Sodium Extended [Dilantin 100 mg Capsule.er] 300 mg PO QHS 08/31/17 Esomeprazole Magnesium [Nexium 24Hr] 20 mg PO DAILY #30 capsule. 09/05/17 History of Present Illness Patient complains of: Bleeding per rectum History of Present Illness: MYRNA MILTON is a 47 year old male Hospital Course Hospital Course: Patient presents with bleeding per rectum. He was noted to have heme-positive stools. He does have a history of CVA. Patient had been on Plavix as well as Voltaren and aspirin. He was treated with IV Protonix and ultimately received 2 units of packed red blood cells. He was seen by surgery and consultation. EGD done was completely negative and colonoscopy done revealed polyps which were a removed but no evidence of any active bleeding. Patient has been restarted back on his Plavix and aspirin but the Voltaren orally has been discontinued. I will also suggest follow-up for reevaluation of his medication and adjustment as needed. Physical Exam Vital Signs: Temp Pulse Resp BP Pulse Ox 97.4 F 79 17 124/74 100 09/05/17 07:24 09/05/17 07:24 09/05/17 07:24 09/05/17 07:24 09/05/17 07:24 Intake & Output 09/04/17 09/05/17 09/06/17 06:59 06:59 06:59 Intake Total 5014 4350 Output Total 1300 1275 Balance 3714 3075 Weight 91.6 kg 91.4 kg General appearance: PRESENT: no acute distress, well-developed, well-nourished Head exam: PRESENT: atraumatic, normocephalic Eye exam: PRESENT: conjunctiva pink, EOMI, PERRLA. ABSENT: scleral icterus Ear exam: PRESENT: normal external ear exam Mouth exam: PRESENT: moist, tongue midline Neck exam: ABSENT: carotid bruit, JVD, lymphadenopathy, thyromegaly Respiratory exam: PRESENT: clear to auscultation lorne. ABSENT: rales, rhonchi, wheezes Cardiovascular exam: PRESENT: RRR. ABSENT: diastolic murmur, rubs, systolic murmur Pulses: PRESENT: normal dorsalis pedis pul Vascular exam: PRESENT: normal capillary refill GI/Abdominal exam: PRESENT: normal bowel sounds, soft. ABSENT: distended, guarding, mass, organolmegaly, rebound, tenderness Rectal exam: PRESENT: deferred Extremities exam: PRESENT: full ROM. ABSENT: calf tenderness, clubbing, pedal edema Neurological exam: PRESENT: alert, awake, oriented to person, oriented to place , oriented to time, oriented to situation, CN II-XII grossly intact, other - Somewhat slightly dysarthric. ABSENT: motor sensory deficit Psychiatric exam: PRESENT: appropriate affect, normal mood. ABSENT: homicidal ideation, suicidal ideation Skin exam: PRESENT: dry, intact, warm. ABSENT: cyanosis, rash Results Laboratory Results: 09/05/17 05:28 09/03/17 04:06 09/05/17 05:28 WBC 5.8 RBC 3.12 L Hgb 9.9 L Hct 28.5 L MCV 91 MCH 31.7 MCHC 34.7 RDW 15.0 H Plt Count 210 Seg Neutrophils % 61.9 Lymphocytes % 28.6 Monocytes % 6.7 Eosinophils % 2.2 Basophils % 0.6 Absolute Neutrophils 3.6 Absolute Lymphocytes 1.7 Absolute Monocytes 0.4 Absolute Eosinophils 0.1 Absolute Basophils 0.0 Impressions: Abdomen/Pelvis CT 08/31/17 00:00 IMPRESSION: NO SIGNIFICANT OR ACUTE FINDING IN THE ABDOMEN OR PELVIS ON CT SCAN WITH IV CONTRAST. Abdomen X-Ray 09/05/17 05:21 IMPRESSION: Nonobstructing bowel gas pattern 2010 [facility] [employer]- All Rights Reserved Qualifiers - * PATIENT BEING DISCHARGED WITH ANY OF THE FOLLOWING DIAGNOSIS: No Plan Time Spent: Greater than 30 Minutes
[2017-09-05 12:40] VITALS: BP 119/78
== END 2017-09-05 13:06 | disposition home or self-care (01) | DRG 378 ==
LOC: ER 12:09 → EH 19:45 → ICU 21:28 → 3N 09-02 05:32
PROVIDERS: ADMIT Internal Medicine; ATTEND Internal Medicine
PROC: 30233N1 Transfusion of Nonautologous Red Blood Cells into Peripheral Vein, Percutaneous Approach (ICD-10-PCS; principal; 2017-08-31)
PROC: 3E0F73Z Introduction of Anti-inflammatory into Respiratory Tract, Via Natural or Artificial Opening (ICD-10-PCS; 2017-09-01)
PROC: 0DB68ZX Excision of Stomach, Via Natural or Artificial Opening Endoscopic, Diagnostic (ICD-10-PCS; 2017-09-02)
PROC: 0DBP8ZX Excision of Rectum, Via Natural or Artificial Opening Endoscopic, Diagnostic (ICD-10-PCS; 2017-09-04)
DX: K92.1 Melena (principal); D62 Acute posthemorrhagic anemia; I69.354 Hemiplegia and hemiparesis following cerebral infarction affecting left non-dominant side; K62.1 Rectal polyp; I25.10 Atherosclerotic heart disease of native coronary artery without angina pectoris; E78.00 Pure hypercholesterolemia, unspecified; G40.909 Epilepsy, unspecified, not intractable, without status epilepticus; I10 Essential (primary) hypertension; M19.90 Unspecified osteoarthritis, unspecified site; F32.9 Major depressive disorder, single episode, unspecified; I25.2 Old myocardial infarction; Z60.2 Problems related to living alone; Z79.899 Other long term (current) drug therapy; Z86.73 Personal history of transient ischemic attack (TIA), and cerebral infarction without residual deficits; Z79.82 Long term (current) use of aspirin; Z87.891 Personal history of nicotine dependence; Z88.6 Allergy status to analgesic agent; Z91.018 Allergy to other foods; Z95.5 Presence of coronary angioplasty implant and graft
CPT/HCPCS: 36415; 36430; 43235; 45380; 74019; 74177; 80048; 80053; 81001; 82272; 82550; 82962; 85025; 85610; 85730; 86850; 86900; 86901; 86920; 88305; 93005; 93010; 96361; 96374; 99285; J0171; J0780; J1200; J1610; J2250; J2310; J2405; J3010; J3490; J7030; P9016; S0164

== ENCOUNTER 2018-06-26 02:15 | Emergency (ER) | payer OTHER ==
[2018-06-26 02:21] VITALS: BP 151/89
== END 2018-06-26 05:30 | disposition left against medical advice (07) ==
LOC: ER 02:15
DX: Z53.21 Procedure and treatment not carried out due to patient leaving prior to being seen by health care provider (principal)

== ENCOUNTER 2018-07-24 15:31 | Emergency (ER) | payer OTHER ==
[2018-07-24 15:55] VITALS: BP 137/79
[2018-07-24] MEDS ORDERED: ACETAMINOPHEN 325 MG TABLET PO ONE (16:04)
--- NOTE | 2018-07-24 16:29 | RADIOLOGY REPORT (SQ) ---
EXAM DESCRIPTION: KNEE LEFT 4 VIEW COMPLETED DATE/TIME: 07/24/2018 4:21 pm REASON FOR STUDY: knee pain COMPARISON: None. NUMBER OF VIEWS: Four views. TECHNIQUE: AP, lateral, and both oblique radiographic images acquired of the left knee. LIMITATIONS: None. FINDINGS: MINERALIZATION: Normal. BONES: No acute fracture or dislocation. No worrisome bone lesions. JOINT: No effusion. SOFT TISSUES: No soft tissue swelling. No radio-opaque foreign body. OTHER: No other significant finding. IMPRESSION: NEGATIVE STUDY OF THE LEFT KNEE. NO RADIOGRAPHIC EVIDENCE OF ACUTE INJURY. TECHNICAL DOCUMENTATION: JOB ID: [id number] [employer]- All Rights Reserved Reading location - IP/workstation name: [email or web address]
--- NOTE | 2018-07-24 16:55 | ER Document Report ---
HPI - HPI Time Seen by Provider: 07/24/18 15:55 Pain Level: 5 Context: Patient is a 48-year-old male who presents to the emergency department with a chief complaint of left knee pain. He states around 930 today he was trying to avoid a snake, and felt a pop in his left knee. He is able to walk. He is already in process of trying to get bilateral knee replacements by Dr. Barroso. He currently wears knee braces. He has a past medical history of GERD, hyperlipidemia, and other chronic medical conditions. - CONSTITUTIONAL Constitutional: DENIES: Fever, Chills - EENT EENT: DENIES: Sore Throat, Ear Pain, Eye problems - NEURO Neurology: DENIES: Headache, Weakness, Vision blurred, Dizzinesss / Vertigo - CARDIOVASCULAR Cardiovascular: DENIES: Chest pain - RESPIRATORY Respiratory: DENIES: Trouble Breathing, Coughing - GASTROINTESTINAL Gastrointestinal: DENIES: Abdominal Pain, Black / Bloody Stools - URINARY Urinary: DENIES: Dysuria, Urgency, Frequency - REPRODUCTIVE Reproductive: DENIES: : - MUSCULOSKELETAL Musculoskeletal: REPORTS: Extremity pain - L knee Past Medical History - General Information source: Patient - Social History Smoking Status: Smoker,Current Status Unk Family History: Other - Unknown to the patient Patient has suicidal ideation: No Patient has homicidal ideation: No - Past Medical History Cardiac Medical History: Reports: Hx Coronary Artery Disease, Hx Heart Attack, Hx Hypercholesterolemia, Hx Hypertension Neurological Medical History: Reports: Hx Cerebrovascular Accident, Hx Seizures Renal/ Medical History: Denies: Hx Peritoneal Dialysis Musculoskeletal Medical History: Reports Hx Arthritis Psychiatric Medical History: Reports: Hx Depression Past Surgical History: Reports: Hx Cardiac Catheterization, Hx Cardiac Surgery, Hx Orthopedic Surgery - Knee surgery, Hx Tonsillectomy - Immunizations Hx Diphtheria, Pertussis, Tetanus Vaccination: Yes Vertical Provider Document - CONSTITUTIONAL Agree With Documented VS: Yes Exam Limitations: No Limitations General Appearance: No Apparent Distress - INFECTION CONTROL TRAVEL OUTSIDE OF THE [place] IN LAST 30 DAYS: No - HEENT HEENT: Atraumatic, Normocephalic, PERRLA - NECK Neck: Normal Inspection - RESPIRATORY Respiratory: Breath Sounds Normal, No Respiratory Distress - CARDIOVASCULAR Cardiovascular: Regular Rate, Regular Rhythm Pulses: Normal: Radial, Posterior tibial, Dorsalis pedis - MUSCULOSKELETAL/EXTREMETIES Musculoskeletal/Extremeties: FROM, Tender - Left knee, No Edema. negative: Eccymosis - NEURO Level of Consciousness: Awake, Alert, Appropriate Motor/Sensory: No Motor Deficit, No Sensory Deficit, No Pronator Drift - DERM Integumentary: Warm, Dry, No Rash Course - Re-evaluation Re-evalutation: 07/24/18 16:55 Patient's left knee x-ray is negative for any dislocation or fracture at this time. He will continue to wear his knee braces and he will follow-up with Dr. Barroso. I have advised him to take Tylenol 1000 mg every 6 hours for his pain. I have advised him not to take ibuprofen, as he has history of a GI bleed past. He is in agreement with this plan. Verbal discharge instructions were given to the patient. They verbalized understanding. They are stable for discharge. - Vital Signs Vital signs: Temp Pulse Resp BP Pulse Ox 97.8 F 82 18 137/79 H 96 07/24/18 15:53 07/24/18 15:53 07/24/18 15:53 07/24/18 15:53 07/24/18 15:53 Discharge - Discharge Clinical Impression: Left knee pain Qualifiers: Chronicity: acute Qualified Code(s): M25.562 - Pain in left knee Condition: Stable Disposition: HOME, SELF-CARE Additional Instructions: You are seen today in the emergency department for left knee pain. Please take Tylenol 1000 mg every 6 hours for your pain. Do not take ibuprofen, because you have a history of a bleed in your stomach. Please follow-up with orthopedics this week in regards to this visit. Please continue to wear your braces on your knees. Prescriptions: Acetaminophen [Acetaminophen Extra Strength] 1,000 mg PO Q6HP PRN #90 tablet PRN Reason: Pain Scale Of 1 [facility]: [facility] [Primary [facility]] - Follow up as needed NOAH BARROSO MD [ACTIVE STAFF] - Follow up in 1 week
== END 2018-07-24 17:10 | disposition home or self-care (01) ==
LOC: ER 15:31
DX: M25.562 Pain in left knee (principal); F17.200 Nicotine dependence, unspecified, uncomplicated; I25.10 Atherosclerotic heart disease of native coronary artery without angina pectoris; E78.00 Pure hypercholesterolemia, unspecified; I10 Essential (primary) hypertension; Z86.74 Personal history of sudden cardiac arrest; I25.2 Old myocardial infarction
CPT/HCPCS: 99283

== ENCOUNTER → 2018-08-03 | Outpatient (CLI) | payer OTHER ==
[2018-08-03 17:12] LABS: ABSOLUTE EOSINOPHILS # (AUTO) 0.1 10^3/uL (0.0-0.6); ABSOLUTE MONOCYTES (AUTO) 0.6 10^3/uL (0.1-1.4); HEMOGLOBIN 12.3 g/dL (13.5-17.0); RED CELL DISTRIBUTION WIDTH 14.6 % (11.5-14.0); TOTAL CELLS COUNTED % (AUTO) 100 %
--- NOTE | 2018-08-03 17:15 | RADIOLOGY REPORT (SQ) ---
EXAM DESCRIPTION: CHEST PA/LATERAL COMPLETED DATE/TIME: 08/03/2018 4:48 pm REASON FOR STUDY: ENCOUNTER FOR PREPROCEDURAL LABORATORY EXAMINATION COMPARISON: None. EXAM PARAMETERS: NUMBER OF VIEWS: two views TECHNIQUE: Digital Frontal and Lateral radiographic views of the chest acquired. RADIATION DOSE: NA LIMITATIONS: none FINDINGS: LUNGS AND PLEURA: No opacities, masses or pneumothorax. No pleural effusion. MEDIASTINUM AND HILAR STRUCTURES: No masses or contour abnormalities. HEART AND VASCULAR STRUCTURES: Heart normal size. No evidence for failure. BONES: No acute findings. HARDWARE: None in the chest. OTHER: No other significant finding. IMPRESSION: NO SIGNIFICANT RADIOGRAPHIC FINDING IN THE CHEST. TECHNICAL DOCUMENTATION: JOB ID: [id number] [employer]- All Rights Reserved Reading location - IP/workstation name: [email or web address] [email or web address]
[2018-08-03 17:19] LABS: ABSOLUTE BASOPHILS # (AUTO) 0.1 10^3/uL (0.0-0.2); ABSOLUTE LYMPHOCYTES (AUTO) 2.4 10^3/uL (0.5-4.7); ABSOLUTE NEUT (AUTO) 4.1 10^3/uL (1.7-8.2); BASOPHILS % (AUTO) 0.8 % (0-2); EOSINOPHILS % (AUTO) 1.9 % (0-6); HEMATOCRIT 37.4 % (37.9-51.0); LYMPHOCYTES % (AUTO) 32.9 % (13-45); MEAN CORPUSCULAR HEMOGLOBIN 28.6 pg (27.0-33.4); MEAN CORPUSCULAR HGB CONC 32.8 g/dL (32.0-36.0); MEAN CORPUSCULAR VOLUME 87 fl (80-97); PLATELET COUNT 216 10^3/uL (150-450); RED BLOOD COUNT 4.29 10^6/uL (4.35-5.55); SEGMENTED NEUTROPHILS % (AUTO) 56.4 % (42-78); WHITE BLOOD COUNT 7.2 10^3/uL (4.0-10.5)
[2018-08-03 17:37] LABS: ANION GAP 10 (5-19); BLOOD UREA NITROGEN 13 mg/dL (7-20); CALCIUM 9.4 mg/dL (8.4-10.2); CARBON DIOXIDE 26 mmol/L (22-30); CHLORIDE 104 mmol/L (98-107); GLUCOSE 93 mg/dL (75-110); POTASSIUM 4.6 mmol/L (3.6-5.0)
[2018-08-03 18:14] LABS: APPEARANCE,URINE SLIGHTLY-CLOUDY; BILIRUBIN,URINE NEGATIVE (NEGATIVE); COLOR,URINE YELLOW; GLUCOSE, URINE NEGATIVE (NEGATIVE); KETONES,URINE NEGATIVE (NEGATIVE); LEUKOCYTE ESTERASE,URINE NEGATIVE (NEGATIVE); NITRITE,URINE NEGATIVE (NEGATIVE); PROTEIN,URINE NEGATIVE (NEGATIVE); URINE SPECIFIC GRAVITY 1.033; UROBILINOGEN,URINE NEGATIVE mg/dL (<2.0)
--- NOTE | 2018-08-03 22:31 | EKG REPORT ---
SEVERITY:- ABNORMAL ECG - SINUS RHYTHM INCOMPLETE RIGHT BUNDLE BRANCH BLOCK PROBABLE INFERIOR INFARCT, AGE INDETERMINATE : Confirmed by: Che Leyva 03-Aug-2018 22:30:01
== END ==
LOC: OD 16:13
PROVIDERS: ATTEND Orthopaedic Surgery
DX: Z01.810 Encounter for preprocedural cardiovascular examination (principal); Z01.811 Encounter for preprocedural respiratory examination; Z01.812 Encounter for preprocedural laboratory examination; M17.12 Unilateral primary osteoarthritis, left knee; I10 Essential (primary) hypertension
CPT/HCPCS: 36415; 71046; 80048; 81001; 85025; 93005; 93010

== ENCOUNTER → 2018-09-20 | Outpatient (CLI) | payer OTHER ==
[~2018-09-20] MED LIST: REGADENOSON INJ 0.4 MG/5 ML DISP.SYRIN IV ONE
--- NOTE | 2018-09-20 12:58 | DRAGON STRESS TEST REPORT ---
INTRAVENOUS LEXISCAN CARDIOLITE STRESS TEST USING SINGLE PHOTON EMMISION COMPUTERIZED TOMOGRAPHIC. DATE OF PROCEDURE: September 20, 2018, INDICATION : Coronary artery disease, preop cardiac evaluation CARDIAC RISK FACTORS: Coronary artery disease RESTING EKG: Sinus rhythm, right bundle branch block with secondary ST-T wave changes STRESS EKG: No significant ST segment changes noted with LexiScan bolus REASON FOR TERMINATION: Protocol. PROCEDURE REPORT: Baseline heart rate 101 beats per minute with blood pressure of 143/75. Patient had no significant complaints. Patient was bolused with Lexiscan 0.4 mg intravenously followed by saline bolus. Heart rate at 2 minutes post bolus 112 with a blood pressure of 146/67. 3 minutes post bolus heart rate 109 with blood pressure of 139/67. No significant EKG changes were noted. Patient had no significant complaints during the procedure or postprocedure. CONCLUSIONS: Normal EKG and hemodynamic response to IV LexiScan. NUCLEAR DATA: At rest the patient was given 15.51 millicuries of technetium 99 sestamibi injected intravenously. As per protocol rest gated SPECT images were obtained. On day of stress test, the patient was given intravenous LexiScan at a dose of 0.4 mg in 5 mL intravenously, followed by flush with normal saline. Subsequently the stress dose of 46.7 millicuries of technetium 99 sestamibi was injected intravenously. As per protocol stress gated images were obtained. NUCLEAR INTERPRETATION: Both raw and processed data were used for interpretation. Visual, qualitative, computer-generated quantitative data was used. There was good myocardial uptake of technetium compound. Motion artifact and soft tissue attenuations were noted. Increased visceral uptake was noted. No definitive areas of transient perfusion defect noted, No definitive areas of fixed perfusion defect or scars noted. EKG gated imaging showed LV EF at 60 %, rest and stress gated EF similar visually. T. I D. ratio was 1.09. Lung heart ratio noted to be within normal limits 0.38. No significant extracardiac and abnormal radiotracer activities were noted. RV free wall uptake was noted to be WNL. IMPRESSION: Also refer to comments under nuclear interpretation. Also test results needs to be interpreted in the context of pretest probability. 1. No definitive areas of transient perfusion defect noted. 2. There is no definitive scintigraphic evidence of myocardial infarction/scar. 3. EKG gated imaging shows left ventricular ejection fraction of approx. 60 %. 4. Clinical correlation requested as worse disease and or balanced ischemia could be missed. In approximately 10% of the cases Lexiscan may not cause adequate vasodilatory stress. RECOMMENDATIONS: Aggressive risk factor modification and medical management. Further evaluation may be needed if continued symptoms or other high risk indicators are noted on clinical evaluation. Close cardiology follow-up is also recommended. Clinical correlation with echocardiogram derived ejection fraction. Inability to exercise by itself can lead to increased cardiovascular event risks. Consider cardiology consultation and or follow-up if clinically indicated. I am available for cardiology evaluation and consultation if requested by the commercial energy rater, unless patient already has a phys asst. Dr. Surendra Leyva. MRCP Board certified in cardiology and sleep medicine. Board certified in nuclear cardiology, adult echocardiography. FELICE
== END ==
LOC: RAD 07:27
PROVIDERS: ATTEND Internal Medicine Cardiovascular Disease
DX: Z01.810 Encounter for preprocedural cardiovascular examination (principal); I25.10 Atherosclerotic heart disease of native coronary artery without angina pectoris; I45.10 Unspecified right bundle-branch block
CPT/HCPCS: 93017; 78452; A9500; J2785; Q9969

== ENCOUNTER 2018-10-10 10:20 | Inpatient (IN) | payer OTHER, MEDICAID ==
[2018-10-22] MEDS ORDERED: IBUPROFEN 800 MG in NORMAL SALINE 250 ML IV PRN (05:00)
[2018-10-22] MEDS ORDERED: VANCOMYCIN HCL 1,000 MG in DEXTROSE 5%-WATER 250 ML IV PRN (05:00)
[2018-10-22] MEDS ORDERED: BUPIVACAINE INJ/PF LIPOSOME/PF 266 MG/20 ML SDV INJ PRN (05:00)
[2018-10-22] MEDS ORDERED: LACTATED RINGERS 1000 ML IV PRN (05:00)
[2018-10-22] MEDS ORDERED: CEFAZOLIN INJ 1 GM VIAL IV PRN (05:00)
[2018-10-22] MEDS ORDERED: PANTOPRAZOLE SODIUM 20 MG TABLET.DR PO PRN (05:00)
[2018-10-22] MEDS ORDERED: OXYCODONE HCL SR 10 MG TABLET PO PRN (05:00)
[2018-10-22] MEDS ORDERED: LIDOCAINE 0.5% INJ-PF (5 MG/ML) 50 ML SDV SUBCUT PRN (05:00)
[2018-10-22] MEDS ORDERED: PANTOPRAZOLE SODIUM 20 MG TABLET.DR PO ONE (05:08)
[2018-10-22] MEDS ORDERED: OXYCODONE HCL SR 10 MG TABLET PO ONE (05:08)
[2018-10-22] MEDS ORDERED: CEFAZOLIN INJ 1 GM VIAL ONE (05:08)
[2018-10-22] MEDS ORDERED: VANCOMYCIN HCL INJ 1000 MG VIAL ONE (05:17)
[2018-10-22] MEDS ORDERED: METOPROLOL TARTRATE 25 MG TABLET ONE (06:00)
[2018-10-22] MEDS ORDERED: FENTANYL CITRATE INJ/PF 100 MCG/2 ML AMPUL ONE (06:31)
[2018-10-22] MEDS ORDERED: MIDAZOLAM 2 MG/2 ML INJ ONE (06:32)
[2018-10-22] MEDS ORDERED: ONDANSETRON HCL INJ/PF 4 MG/2 ML SDV ONE (06:32)
[2018-10-22] MEDS ORDERED: PROPOFOL INJ 200 MG/20 ML VIAL IV ONE (06:32)
[2018-10-22] MEDS ORDERED: TRANEXAMIC ACID INJ/PF 1,000 MG/10 ML SDV IV ONE ×2 (06:32→10:00)
[2018-10-22] MEDS ORDERED: DEXAMETHASONE SOD PHOSPHATE INJ 4 MG/1 ML VIAL ONE (06:32)
[2018-10-22] MEDS ORDERED: FENTANYL CITRATE INJ/PF 100 MCG/2 ML AMPUL IV PRN ×3 (07:05)
[2018-10-22] MEDS ORDERED: ONDANSETRON HCL INJ/PF 4 MG/2 ML SDV IV PRN (07:05)
[2018-10-22] MEDS ORDERED: MORPHINE SULFATE 10 MG/ML INJ IV PRN (07:05)
[2018-10-22] MEDS ORDERED: THROMBIN (BOVINE) TOPICAL 20000 UNIT VIAL ONE (07:05)
[2018-10-22] MEDS ORDERED: DIPHENHYDRAMINE HCL 50 MG/ML VIAL IV PRN ×2 (07:05→08:29)
[2018-10-22] MEDS ORDERED: PROMETHAZINE HCL INJ 25 MG/1 ML VIAL IV PRN ×2 (07:05)
[2018-10-22] MEDS ORDERED: BUPIVACAINE HCL 0.25% /EPINEPHRINE INJ/PF 30 ML SDV ONE (07:05)
[2018-10-22] MEDS ORDERED: MEPERIDINE HCL/PF INJ 25 MG/1 ML DISP.SYRIN IV PRN (07:05)
[2018-10-22] MEDS ORDERED: NITROGLYCERIN 0.4 MG/TAB 25 TAB/BOTTLE SL PRN (08:28)
--- NOTE | 2018-10-22 08:28 | Operative Report ---
Operative Report DATE OF SURGERY: 10/22/18 PREOPERATIVE DIAGNOSIS: Left knee arthritis OPERATION: Left knee arthroplasty SURGEON: NOAH BARROSO ANESTHESIA: Spinal TISSUE REMOVED OR ALTERED: Bone to pathology ESTIMATED BLOOD LOSS: 50 PROCEDURE: Implants used: Femur: Rom triathlon size 6 CR uncemented femur Tibia: 5 uncemented tibia Tibial liner: 9 mm CS insert Patella: 35 mm oval uncemented patella Procedure with the patient supine on the operating table the left the limb is prepped and draped in a sterile fashion. The limb was elevated for exsanguination and the tourniquet inflated to 280 torr. A standard midline median parapatellar approach the knee is taken. Access is gained to the femoral canal through the intercondylar notch. Intramedullary alignment instrumentation used to resect 10 mm of distal femur in 5 of valgus. Sizing guide indicated a size 6 femur. Appropriate cutting jig is then used to fashion anterior posterior and chamfer cuts. A trial reduction femurs performed and this is judged to be adequate. Attention was next turned to the tibia. Using an extra medullary alignment system 9 millimeters was resected off the lateral tibial plateau. This is sized to a size 5 tibia. A trial reduction was now performed with a 6 femur and a 5 tibia using a 9 millimeters spacer. It is full extension and central patellofemoral tracking. The articular surface the patella was next resected using an oscillating saw. All trial implants were removed. The cancellus surfaces bib air with pulse lavage and the implants above are impacted into position. the tourniquet was deflated hemostasis obtained the wound is then closed in layers using interrupted Vicryl followed by burt. A sterile compressive dressing was applied and the patient returned to recovery room in satisfactory condition.
[2018-10-22] MEDS ORDERED: OXYCODONE HCL IR 5 MG TABLET PO PRN (08:29)
[2018-10-22] MEDS ORDERED: MAG HYDROX/AL HYDROX/SIMETH SUSP 30 ML UDCUP PO PRN (08:29)
[2018-10-22] MEDS ORDERED: ACETAMINOPHEN 325 MG TABLET PO PRN (08:29)
[2018-10-22] MEDS ORDERED: ZOLPIDEM TARTRATE 5 MG TABLET PO PRN (08:29)
[2018-10-22] MEDS ORDERED: ONDANSETRON 4 MG TAB.RAPDIS PO PRN (08:29)
--- NOTE | 2018-10-22 09:31 | RADIOLOGY REPORT (SQ) ---
EXAM DESCRIPTION: KNEE LEFT 2 VIEWS COMPLETED DATE/TIME: 10/22/2018 9:19 am REASON FOR STUDY: Post OP -Long Cassette in PACU M17.12 UNILATERAL PRIMARY OSTEOARTHRITIS, LEFT KNE E COMPARISON: None. NUMBER OF VIEWS: Two view(s). TECHNIQUE: Digital radiographic images of the left knee post-procedure. LIMITATIONS: None. FINDINGS: BONES: No worrisome or unexpected findings post-procedure. DEVICE: Total knee arthroplasty. SOFT TISSUES: No worrisome findings. Expected postoperative soft tissue changes. IMPRESSION: SATISFACTORY POSTOPERATIVE LEFT KNEE. TECHNICAL DOCUMENTATION: JOB ID: [id number] [employer]- All Rights Reserved Reading location - IP/workstation name: [email or web address]
[2018-10-22] MEDS ORDERED: PANTOPRAZOLE SODIUM 40 MG TABLET.DR PO SCH (10:00)
[2018-10-22] MEDS ORDERED: METOPROLOL TARTRATE 50 MG TABLET PO SCH (10:00)
[2018-10-22] MEDS: ONDANSETRON HCL INJ/PF 4 MG/2 ML SDV IV PRN (10:04)
[2018-10-22] MEDS: RINGERS SOLUTION,LACTATED 1,000 ML IV PRN ×2 (12:00→21:28)
[2018-10-22] MEDS: IBUPROFEN 800 MG in NORMAL SALINE 250 ML IV SCH ×2 (14:12→21:26)
[2018-10-22] MEDS ORDERED: LORAZEPAM INJ 2 MG/1 ML VIAL ONE (16:54)
[2018-10-22] MEDS: SENNOSIDES/DOCUSATE 8.6-50 MG 1 EACH TABLET PO SCH (18:08)
[2018-10-22] MEDS: PREGABALIN 75 MG CAPSULE PO SCH (18:08)
[2018-10-22] MEDS ORDERED: VANCOMYCIN HCL 1,000 MG in DEXTROSE 5%-WATER 250 ML IV ONE (20:29)
[2018-10-22] MEDS: METOPROLOL TARTRATE 25 MG TABLET PO SCH (21:26)
[2018-10-22] MEDS: OXYCODONE HCL SR 10 MG TABLET PO SCH (21:26)
[2018-10-23] MEDS: IBUPROFEN 800 MG in NORMAL SALINE 250 ML IV SCH ×3 (05:05→21:19)
[2018-10-23] MEDS: PANTOPRAZOLE SODIUM 40 MG TABLET.DR PO SCH (05:05)
[2018-10-23] MEDS: RINGERS SOLUTION,LACTATED 1,000 ML IV PRN ×2 (05:16→16:10)
[2018-10-23 06:12] LABS: HEMATOCRIT 35.4 % (37.9-51.0); HEMOGLOBIN 11.4 g/dL (13.5-17.0); MEAN CORPUSCULAR HEMOGLOBIN 28.1 pg (27.0-33.4); MEAN CORPUSCULAR HGB CONC 32.2 g/dL (32.0-36.0); MEAN CORPUSCULAR VOLUME 87 fl (80-97); PLATELET COUNT 234 10^3/uL (150-450); RED BLOOD COUNT 4.05 10^6/uL (4.35-5.55); RED CELL DISTRIBUTION WIDTH 14.6 % (11.5-14.0); WHITE BLOOD COUNT 11.5 10^3/uL (4.0-10.5)
[2018-10-23] MEDS: ONDANSETRON HCL INJ/PF 4 MG/2 ML SDV IV PRN ×2 (06:18→18:45)
[2018-10-23 06:41] LABS: ANION GAP 9 (5-19); BLOOD UREA NITROGEN 11 mg/dL (7-20); CALCIUM 8.5 mg/dL (8.4-10.2); CARBON DIOXIDE 29 mmol/L (22-30); CHLORIDE 99 mmol/L (98-107); GLUCOSE 123 mg/dL (75-110); POTASSIUM 4.7 mmol/L (3.6-5.0)
--- NOTE | 2018-10-23 07:06 | PDOC DISCHARGE SUMMARY ---
General - Admit/Disc Date/PCP Admission Date/Primary Care Provider: 10/22/18 05:[facility] Discharge Date: 10/23/18 - Discharge Diagnosis (1) Arthritis of left knee Is this a current diagnosis for this admission?: Yes (2) Urinary retention Is this a current diagnosis for this admission?: Yes - Additional Information Resuscitation Status: Full Code Home Medications: Aspirin [Adult Low Dose Aspirin EC] 81 mg PO DAILY 08/31/17 Metoprolol Tartrate [Lopressor 50 mg Tablet] 25 mg PO BID 08/31/17 Pantoprazole Sodium 40 mg PO DAILY 08/08/18 Atorvastatin Calcium [Lipitor 80 mg Tablet] 80 mg PO DAILY 08/09/18 Clopidogrel Bisulfate [Plavix 75 mg Tablet] 75 mg PO DAILY 10/22/18 History of Present Illness History of Present Illness: MYRNA MILTON is a 48 year old male Patient is a 48-year-old white male with bilateral knee osteoarthritis is admitted for elective left knee arthroplasty. Hospital Course Hospital Course: Patient is admitted through the operating room he undergoes an uncomplicated left knee arthroplasty. There are some issues with wound drainage and the dressings were reinforced. There is also some issues with urinary retention leading to intermittent in and out catheterizations. Patient makes excellent progress with physical therapy and is ready for discharge home with home health services and DME. Physical Exam Vital Signs: Temp Pulse Resp BP Pulse Ox 36.8 C 107 H 19 154/84 H 96 10/22/18 23:44 10/22/18 23:44 10/22/18 23:44 10/22/18 23:44 10/22/18 23:44 Intake & Output 10/22/18 10/23/18 10/24/18 06:59 06:59 06:59 Intake Total 0 5020 Output Total 1945 Balance 0 3075 Weight 108.7 kg Physical Exam: Middle-aged white male lying in bed. Patient appears to be no distress. He is alert, oriented but very difficult to understand. General appearance: PRESENT: no acute distress, obese, well-developed, well-nourished Head exam: PRESENT: normocephalic Respiratory exam: PRESENT: unlabored Cardiovascular exam: PRESENT: RRR Pulses: PRESENT: +1 pedal pulses bilateral GI/Abdominal exam: PRESENT: soft Rectal exam: PRESENT: deferred Extremities exam: PRESENT: other - Compressive dressing removed from the left lower extremity on postop day 1. Underlying OpSite dressing is saturated. This is removed. The small amount of bloody drainage from the inferior aspect of the wound. This is treated with another dose of tranexamic acid and a compressive dressing. Neurological exam: PRESENT: alert, awake, oriented to person, oriented to place, oriented to time, oriented to situation. ABSENT: motor sensory deficit Psychiatric exam: PRESENT: appropriate affect, normal mood. ABSENT: homicidal ideation, suicidal ideation Skin exam: PRESENT: dry, intact, warm. ABSENT: cyanosis, rash Results Laboratory Results: 10/23/18 04:52 10/23/18 04:52 10/23/18 10/23/18 04:52 04:52 WBC 11.5 H RBC 4.05 L Hgb 11.4 L Hct 35.4 L MCV 87 MCH 28.1 MCHC 32.2 RDW 14.6 H Plt Count 234 Sodium 137.0 Potassium 4.7 Chloride 99 Carbon Dioxide 29 Anion Gap 9 BUN 11 Creatinine 0.68 Est GFR ( Amer) > 60 Est GFR (Non-Af Amer) > 60 Glucose 123 H Calcium 8.5 Impressions: Knee X-Ray 10/22/18 08:30 IMPRESSION: SATISFACTORY POSTOPERATIVE LEFT KNEE. Status: Imported from PACS Qualifiers - * PATIENT BEING DISCHARGED WITH ANY OF THE FOLLOWING DIAGNOSIS: No VTE patient discharged on overlapping Therapy?: Yes Acute Heart Failure - Is this a Heart Failure Patient?: No Plan Discharge Plan: Patient be discharged home with home health services and DME. Home health nursing can change the left knee dressing on a as needed basis. Follow-up with Dr. Anderson and [facility] for surgery in 2 weeks for staple removal. Time Spent: Less than 30 Minutes
[2018-10-23] MEDS ORDERED: TRANEXAMIC ACID INJ/PF 1,000 MG/10 ML SDV IV ONE (08:00)
[2018-10-23] MEDS: PREGABALIN 75 MG CAPSULE PO SCH ×2 (09:09→18:23)
[2018-10-23] MEDS: ATORVASTATIN CALCIUM 80 MG TABLET PO SCH (09:09)
[2018-10-23] MEDS: PRENATAL VITAMIN W DHA CAPSULE PO SCH (09:09)
[2018-10-23] MEDS: ASPIRIN 81 MG TABLET, ENT COATED PO SCH (09:09)
[2018-10-23] MEDS: METOPROLOL TARTRATE 25 MG TABLET PO SCH ×2 (09:09→21:19)
[2018-10-23] MEDS: SENNOSIDES/DOCUSATE 8.6-50 MG 1 EACH TABLET PO SCH ×2 (09:09→18:23)
[2018-10-23] MEDS: OXYCODONE HCL SR 10 MG TABLET PO SCH ×2 (09:10→21:18)
[2018-10-24] MEDS: RINGERS SOLUTION,LACTATED 1,000 ML IV PRN (05:00)
--- NOTE | 2018-10-24 06:50 | PDOC CONSULTATION ---
Consultation Consult Date: 10/24/18 Provider Consulted: ESTH PERES Consult reason:: hypoxia History of Present Illness Admission Date/PCP: 10/22/18 05:27 [facility] History of Present Illness: MYRNA MILTON is a 48 year old male who is here for a left knee arthroplasty. He has obstructive sleep apnea and is on BiPAP at night. He has had some vomiting a couple of times but says he has not had any last night. His nurse was concerned because whenever she check vitals on him this morning he was hypoxic and she put him on 4 L per nasal cannula to get his oxygen saturations up. He was sitting up on the edge of the bed and was looking like he wanted to fall back asleep. He got 20 mg of oxycodone last night. I had to wake him up several times to tell him to breathe. Whenever he would take deep breaths his oxygen saturations would come up but he would get comfortable and he would start looking drowsy when he was sitting up and he would stop breathing and then his oxygen saturations would drop back down. He said he slept with his CPAP on most of the night. He denies having vomited, but his nurse was worried that he had vomited some because he had some black stuff in his mouth and she made him brush his teeth. Past Medical History Cardiac Medical History: Reports: Coronary Artery Disease, Myocardial Infarction, Hyperlipidema, Hypertension Denies: Atrial Fibrillation, Congestive Heart Failure, Peripheral Vascular Disease, Pulmonary Embolism, Heart Murmur Pulmonary Medical History: Reports: Sleep Apnea - uses CPAP Denies: Asthma, Bronchitis, Chronic Obstructive Pulmonary Disease (COPD), Pneumonia, Respiratory Failure, Tuberculosis Neurological Medical History: Reports: Seizures Endocrine Medical History: Denies: Hyperthyroidism, Hypothyroidism Malignancy Medical History: Denies: Lung Cancer GI Medical History: Denies: Crohn's Disease, Gastroesophageal Reflux Disease, Hiatal Hernia Musculoskeltal Medical History: Reports: Arthritis Denies: Fibromyalgia Psychiatric Medical History: Reports: Depression Denies: Bipolar Disorder, Dementia, Post Traumatic Stress Disorder Hematology: Denies: Anemia Past Surgical History Past Surgical History: Reports: Cardiac Catheterization, Orthopedic Surgery - Knee surgery, Tonsillectomy Denies: Appendectomy, Cholecystectomy, Colostomy, Coronary Artery Bypass Graft, Gastric Bypass Surgery, Herniorrhaphy, Pacemaker Social History Smoking Status: Former Smoker Frequency of Alcohol Use: None Hx Recreational Drug Use: No Drugs: None Hx Prescription Drug Abuse: No - Advance Directive Resuscitation Status: Full Code Family History Family History: Other - Unknown to the patient Parental Family History Reviewed: Yes - Unknown Children Family History Reviewed: NA Sibling(s) Family History Reviewed.: Unknown Medication/Allergy Home Medications: Aspirin [Adult Low Dose Aspirin EC] 81 mg PO DAILY 08/31/17 Metoprolol Tartrate [Lopressor 50 mg Tablet] 25 mg PO BID 08/31/17 Pantoprazole Sodium 40 mg PO DAILY 08/08/18 Atorvastatin Calcium [Lipitor 80 mg Tablet] 80 mg PO DAILY 08/09/18 Clopidogrel Bisulfate [Plavix 75 mg Tablet] 75 mg PO DAILY 10/22/18 Allergies/Adverse Reactions: cabbage Allergy (Verified 10/22/18 06:00) RAPID HEARTBEAT carbamazepine [From Tegretol] Allergy (Verified 10/22/18 06:00) phenobarbital Allergy (Verified 10/22/18 06:00) Review of Systems All systems: reviewed and no additional remarkable complaints except as stated - All systems reviewed and were negative except as noted in the HPI Physical Exam Vital Signs: Temp Pulse Resp BP Pulse Ox 98.7 F 81 17 142/76 H 97 10/23/18 23:50 10/23/18 23:50 10/23/18 23:50 10/23/18 23:50 10/23/18 23:50 Intake & Output 10/22/18 10/23/18 10/24/18 06:59 06:59 06:59 Intake Total 0 5020 2451 Output Total 1945 250 Balance 0 3075 2201 Weight 108.7 kg 109.2 kg General appearance: PRESENT: no acute distress, cooperative, disheveled, morbidly obese Head exam: PRESENT: atraumatic, normocephalic Eye exam: PRESENT: EOMI, PERRLA. ABSENT: conjunctival injection, nystagmus, scleral icterus Ear exam: PRESENT: normal external ear exam Mouth exam: PRESENT: dry mucosa, neck supple Throat exam: ABSENT: post pharyngeal erythema Neck exam: PRESENT: full ROM. ABSENT: carotid bruit, JVD, lymphadenopathy, meningismus, tenderness, thyromegaly Respiratory exam: PRESENT: clear to auscultation lorne, symmetrical, unlabored. ABSENT: accessory muscle use, chest wall tenderness, crackles, prolonged expiratory phas, rhonchi, tachypnea, wheezes Cardiovascular exam: PRESENT: +S1, +S2, tachycardia Pulses: PRESENT: normal carotid pulses Vascular exam: PRESENT: normal capillary refill GI/Abdominal exam: PRESENT: normal bowel sounds, soft. ABSENT: distended, guarding, rebound, tenderness Extremities exam: ABSENT: clubbing, pedal edema Musculoskeletal exam: PRESENT: normal inspection, other - He had a clean bandage on the left knee. ABSENT: deformity Neurological exam: PRESENT: awake - Drowsy but arousable, I had to wake him up several times while he was sitting up and tell him to breathe, oriented to person, oriented to place, oriented to situation, CN II-XII grossly intact. ABSENT: motor sensory deficit Psychiatric exam: PRESENT: flat affect Skin exam: PRESENT: dry, warm Results Laboratory Results: 10/23/18 04:52 10/23/18 04:52 10/23/18 04:52 Sodium 137.0 Potassium 4.7 Chloride 99 Carbon Dioxide 29 Anion Gap 9 BUN 11 Creatinine 0.68 Est GFR ( Amer) > 60 Est GFR (Non-Af Amer) > 60 Glucose 123 H Calcium 8.5 Impressions: Knee X-Ray 10/22/18 08:30 IMPRESSION: SATISFACTORY POSTOPERATIVE LEFT KNEE. Assessment and Plan - Diagnosis (1) Hypoxia Is this a current diagnosis for this admission?: Yes Plan: His lungs were clear so I do not think he aspirated. He did not appear to be in any kind of respiratory distress. If anything, he looked oversedated from his pain medication, or possibly like he was retaining CO2. I have ordered a chest x-ray and ABG. I do not think he needs antibiotics. (2) Tachycardia Is this a current diagnosis for this admission?: Yes Plan: He had just sat up on the edge of the bed and his blood pressure was normal so I do not know if this was some sort of compensatory response or response to his hypoxemia or something else. He is not having any chest pain or palpitations. His pulse was regular. Just going to monitor this for now. - Time Time Spent with patient: 35 or more minutes
[2018-10-24] MEDS: PANTOPRAZOLE SODIUM 40 MG TABLET.DR PO SCH (06:54)
[2018-10-24] MEDS: IBUPROFEN 800 MG in NORMAL SALINE 250 ML IV SCH (06:54)
--- NOTE | 2018-10-24 07:03 | PDOC PROGRESS REPORT ---
Subjective Progress Note for:: 10/24/18 Reason For Visit: M17.12 UNILATERAL PRIMARY OSTEOARTHRITIS, LEFT KNE 48-year-old white male now postop day 2 status post left knee arthroplasty. Events overnight are notable for transient hypoxia and tachycardia. On rounds this morning to the nurse educator myself the patient appears to be baseline with the exception of the persistent tachycardia at 110 bpm. Physical Exam Vital Signs: Temp Pulse Resp BP Pulse Ox 37.1 C 81 17 142/76 H 97 10/23/18 23:50 10/23/18 23:50 10/23/18 23:50 10/23/18 23:50 10/23/18 23:50 Intake & Output 10/22/18 10/23/18 10/24/18 06:59 06:59 06:59 Intake Total 0 5020 3451 Output Total 1945 250 Balance 0 3075 3201 Weight 108.7 kg 109.2 kg Physical Exam: Overweight if not obese middle-aged white male sitting up in bed. The patient is alert oriented to person and place. Speech is difficult to understand but I think this is at baseline. General appearance: PRESENT: no acute distress, obese, well-developed, well- nourished Head exam: PRESENT: normocephalic Respiratory exam: PRESENT: unlabored Cardiovascular exam: PRESENT: tachycardia Pulses: PRESENT: +1 pedal pulses bilateral Vascular exam: PRESENT: normal capillary refill GI/Abdominal exam: PRESENT: soft Rectal exam: PRESENT: deferred Extremities exam: PRESENT: other - Left lower extremity dressing is changed this morning. There continues to be a small area of drainage from the distal aspect of the wound that looks like liquefied hematoma. There is minimal surrounding erythema or induration. Dry compressive dressing placed. Neurological exam: PRESENT: alert, awake, oriented to person, oriented to place, oriented to situation Psychiatric exam: PRESENT: appropriate affect, normal mood. ABSENT: homicidal ideation, suicidal ideation Skin exam: PRESENT: dry, intact, warm. ABSENT: cyanosis, rash Results Laboratory Results: 10/23/18 04:52 10/23/18 04:52 Impressions: Knee X-Ray 10/22/18 08:30 IMPRESSION: SATISFACTORY POSTOPERATIVE LEFT KNEE. Status: Imported from PACS Assessment & Plan - Diagnosis (1) Arthritis of left knee Is this a current diagnosis for this admission?: Yes Plan: Patient continues to be mobilized with physical therapy and weightbearing as tolerated basis. (2) Hypoxia Is this a current diagnosis for this admission?: Yes Plan: Patient uses CPAP overnight on a regular basis. Nursing is concerned about a potential aspiration pneumonia but this does not appear to be the case clinically this morning. Saturations levels of return to baseline. Narcotic medications have been discontinued. (3) Urinary retention Is this a current diagnosis for this admission?: Yes Plan: Resolved (4) Tachycardia Is this a current diagnosis for this admission?: Yes Plan: Uncertain etiology. Laboratory values, chest x-ray, EKG are pending. At this point there does not seem to be any impending hemodynamic compromise - Time Time Spent with patient: 15-24 minutes Anticipated discharge: SNF Within: within 24 hours - Plan Summary Plan Summary: Original plan was for discharge home with home health services and DME. At this point the patient probably would be better served with a [facility] facility placement. Social work will be consulted for such.
--- NOTE | 2018-10-24 07:05 | RADIOLOGY REPORT (SQ) ---
EXAM DESCRIPTION: XR CHEST 1 VIEW COMPLETED DATE/TME: 10/24/2018 00:00 CLINICAL HISTORY: 48 years Male, Possible aspiration COMPARISON: 08/03/18 NUMBER OF VIEWS/TECHNIQUE: 1/AP FINDINGS: Adequate lung volume, clear parenchyma, normal cardiac silhouette, and intact bony thorax. IMPRESSION: No acute cardiopulmonary findings.
[2018-10-24 07:21] LABS: ARTERIAL BLOOD BASE EXCESS 1.4 mmol/L; ARTERIAL BLOOD H2CO3 1.65 mmol/L (1.05-1.35); ARTERIAL BLOOD HCO3 28.2 mmol/L (20-24); ARTERIAL BLOOD O2 SATURATION 93.6 % (94-98); ARTERIAL BLOOD PCO2 54.8 mmHg (35-45); ARTERIAL BLOOD PH 7.33 (7.35-7.45); ARTERIAL BLOOD PO2 73.6 mmHg (80-100); ARTERIAL BLOOD TOTAL CO2 29.9 mmol/L (23-27)
[2018-10-24 07:45] LABS: ABSOLUTE LYMPHOCYTES (AUTO) 1.4 10^3/uL (0.5-4.7); ABSOLUTE MONOCYTES (AUTO) 0.7 10^3/uL (0.1-1.4); ABSOLUTE NEUT (AUTO) 7.5 10^3/uL (1.7-8.2); BASOPHILS % (AUTO) 0.4 % (0-2); EOSINOPHILS % (AUTO) 0.4 % (0-6); HEMOGLOBIN 10.4 g/dL (13.5-17.0); MEAN CORPUSCULAR HEMOGLOBIN 28.6 pg (27.0-33.4); MEAN CORPUSCULAR HGB CONC 32.6 g/dL (32.0-36.0); MEAN CORPUSCULAR VOLUME 88 fl (80-97); MONOCYTES % (AUTO) 7.3 % (3-13); PLATELET COUNT 185 10^3/uL (150-450); RED BLOOD COUNT 3.64 10^6/uL (4.35-5.55); SEGMENTED NEUTROPHILS % (AUTO) 77.9 % (42-78); TOTAL CELLS COUNTED % (AUTO) 100 %; WHITE BLOOD COUNT 9.7 10^3/uL (4.0-10.5)
[2018-10-24] MEDS ORDERED: TRAMADOL HCL 50 MG TABLET PO PRN (08:00)
[2018-10-24 08:21] LABS: ANION GAP 7 (5-19); BLOOD UREA NITROGEN 18 mg/dL (7-20); CALCIUM 8.4 mg/dL (8.4-10.2); CARBON DIOXIDE 29 mmol/L (22-30); CHLORIDE 99 mmol/L (98-107); GLUCOSE 118 mg/dL (75-110); POTASSIUM 4.6 mmol/L (3.6-5.0)
[2018-10-24] MEDS: OXYCODONE HCL SR 10 MG TABLET PO SCH (11:23)
[2018-10-24] MEDS: ATORVASTATIN CALCIUM 80 MG TABLET PO SCH (11:25)
[2018-10-24] MEDS: METOPROLOL TARTRATE 25 MG TABLET PO SCH ×2 (11:25→21:15)
[2018-10-24] MEDS: ASPIRIN 81 MG TABLET, ENT COATED PO SCH (11:25)
[2018-10-24] MEDS: PRENATAL VITAMIN W DHA CAPSULE PO SCH (11:26)
[2018-10-24] MEDS: PREGABALIN 75 MG CAPSULE PO SCH ×2 (11:26→17:08)
[2018-10-24] MEDS: SENNOSIDES/DOCUSATE 8.6-50 MG 1 EACH TABLET PO SCH ×2 (11:26→17:08)
--- NOTE | 2018-10-24 12:00 | RADIOLOGY REPORT (SQ) ---
EXAM DESCRIPTION: NM LUNG VENT/PERF SCAN COMPLETED DATE/TIME: 10/24/2018 11:14 am REASON FOR STUDY: hypoxia M17.12 UNILATERAL PRIMARY OSTEOARTHRITIS, LEFT KNEE COMPARISON: Single-view radiograph from today. RADIONUCLIDE AND DOSE: 5.46 millicuries TC-99m MAA Intravenous 32.4 millicuries TC-99m DTPA Inhaled aerosol TECHNIQUE: Eight views of the lungs acquired post ventilation of DTPA aerosol. Eight matching views of the lungs acquired following injection of MAA. LIMITATIONS: Ventilation is only performed in anterior and posterior projections due to cooperation issues. FINDINGS: VENTILATION: Symmetric and homogeneous distribution of DTPA aerosol during ventilatory pha se. No significant areas of photopenia. PERFUSION: Perfusion images with normal homogenous activity and no wedge-shaped or segmental defects. No ventilation-perfusion mismatches. OTHER: No other significant finding. IMPRESSION: NORMAL VENTILATION-PERFUSION LUNG SCAN. NEGATIVE FOR PULMONARY EMBOLI. TECHNICAL DOCUMENTATION: JOB ID: [id number] [employer]- All Rights Reserved Reading location - IP/workstation name: [email or web address]
--- NOTE | 2018-10-24 14:36 | EKG REPORT ---
SEVERITY:- ABNORMAL ECG - SINUS TACHYCARDIA INCOMPLETE RIGHT BUNDLE BRANCH BLOCK INFERIOR INFARCT, AGE INDETERMINATE : Confirmed by: Che Leyva 24-Oct-2018 14:36:22
[2018-10-25 05:34] LABS: HEMATOCRIT 28.5 % (37.9-51.0); HEMOGLOBIN 9.2 g/dL (13.5-17.0); MEAN CORPUSCULAR HEMOGLOBIN 28.3 pg (27.0-33.4); MEAN CORPUSCULAR HGB CONC 32.2 g/dL (32.0-36.0); MEAN CORPUSCULAR VOLUME 88 fl (80-97); PLATELET COUNT 160 10^3/uL (150-450); RED BLOOD COUNT 3.24 10^6/uL (4.35-5.55); RED CELL DISTRIBUTION WIDTH 15.1 % (11.5-14.0); WHITE BLOOD COUNT 7.6 10^3/uL (4.0-10.5)
[2018-10-25] MEDS: PANTOPRAZOLE SODIUM 40 MG TABLET.DR PO SCH (06:03)
--- NOTE | 2018-10-25 06:37 | PDOC DISCHARGE SUMMARY ---
General - Admit/Disc Date/PCP Admission Date/Primary Care Provider: 10/22/18 05:[facility] Discharge Date: 10/25/18 - Discharge Diagnosis (1) Arthritis of left knee Is this a current diagnosis for this admission?: Yes Summary: 48-year-old white male admitted for elective left knee arthroplasty. (2) Hypoxia Is this a current diagnosis for this admission?: Yes Summary: Resolved (3) Urinary retention Is this a current diagnosis for this admission?: Yes Summary: Resolved (4) Tachycardia Is this a current diagnosis for this admission?: Yes Summary: Persistent sinus tachycardia. Patient will follow-up with his continuous drier helper following discharge - Additional Information Resuscitation Status: Full Code Discharge Diet: As Tolerated, Regular Discharge Activity: Balance Activity w/Rest, No Driving, No tub bath Home Medications: Aspirin [Adult Low Dose Aspirin EC] 81 mg PO DAILY 08/31/17 Metoprolol Tartrate [Lopressor 50 mg Tablet] 25 mg PO BID 08/31/17 Pantoprazole Sodium 40 mg PO DAILY 08/08/18 Atorvastatin Calcium [Lipitor 80 mg Tablet] 80 mg PO DAILY 08/09/18 Clopidogrel Bisulfate [Plavix 75 mg Tablet] 75 mg PO DAILY 10/22/18 History of Present Illness History of Present Illness: Patient is a 48-year-old white male with progressive left knee pain and functional disability second osteoarthritis. Patient is admitted for elective left knee arthroplasty. Hospital Course Hospital Course: Patient is admitted through the operating room where he undergoes uncomplicated left knee arthroplasty but is returned to floor in satisfactory condition. He makes excellent progress with physical therapy on the day of surgery. With the course of the operative night and into the next day the dressing has to be reinforced. On postop day 1 the compressive dressing is removed and there is a constant ooze from the inferior aspect of the wound. This is treated with dressing changes as needed. The patient exhibits some urinary retention for which in and out cath is prescribed. This eventually resolves. He also exhibits an episode of tachycardia and desaturation. EKG shows a sustained sinus tachycardia, chest x-ray is clear, blood gas shows a mild acidosis, and a ventilation/perfusion scan is negative. At the time of discharge all of these issues have resolved except for the tachycardia which persists as a sinus tachycardia Physical Exam Vital Signs: Temp Pulse Resp BP Pulse Ox 37.2 C 110 H 14 142/70 H 92 10/24/18 23:55 10/24/18 23:55 10/24/18 23:55 10/24/18 23:55 10/24/18 23:55 Intake & Output 10/23/18 10/24/18 10/25/18 06:59 06:59 06:59 Intake Total 5020 3451 2772 Output Total 1945 250 500 Balance 3075 3201 2272 Weight 108.7 kg 109.2 kg Physical Exam: Overweight middle-aged white male lying in bed in no distress. General appearance: PRESENT: well-developed, well-nourished Head exam: PRESENT: normocephalic Respiratory exam: PRESENT: unlabored Cardiovascular exam: PRESENT: tachycardia Pulses: PRESENT: +1 pedal pulses bilateral Vascular exam: PRESENT: normal capillary refill GI/Abdominal exam: PRESENT: soft Rectal exam: PRESENT: deferred Extremities exam: PRESENT: other - Things changed on the left knee. The wound is now clean dry and intact well approximated burt without erythema or induration. Minimal pedal edema. Distal neurovascular examination is intact. Neurological exam: PRESENT: alert, awake, oriented to person, oriented to place, oriented to time, oriented to situation. ABSENT: motor sensory deficit Psychiatric exam: PRESENT: appropriate affect, normal mood. ABSENT: homicidal ideation, suicidal ideation Skin exam: PRESENT: dry, intact, warm. ABSENT: cyanosis, rash Results Laboratory Results: 10/25/18 05:13 10/24/18 07:10 10/24/18 10/24/18 10/24/18 06:58 07:10 07:10 WBC 9.7 RBC 3.64 L Hgb 10.4 L Hct 32.0 L MCV 88 MCH 28.6 MCHC 32.6 RDW 15.0 H Plt Count 185 Seg Neutrophils % 77.9 Lymphocytes % 14.0 Monocytes % 7.3 Eosinophils % 0.4 Basophils % 0.4 Absolute Neutrophils 7.5 Absolute Lymphocytes 1.4 Absolute Monocytes 0.7 Absolute Eosinophils 0.0 Absolute Basophils 0.0 Carbonic Acid 1.65 H HCO3/H2CO3 Ratio 17:1 ABG pH 7.33 L ABG pCO2 54.8 H ABG pO2 73.6 L ABG HCO3 28.2 H ABG O2 Saturation 93.6 L ABG Base Excess 1.4 FiO2 44% Sodium 134.9 L Potassium 4.6 Chloride 99 Carbon Dioxide 29 Anion Gap 7 BUN 18 Creatinine 0.70 Est GFR ( Amer) > 60 Est GFR (Non-Af Amer) > 60 Glucose 118 H Calcium 8.4 10/25/18 05:13 WBC 7.6 RBC 3.24 L Hgb 9.2 L Hct 28.5 L MCV 88 MCH 28.3 MCHC 32.2 RDW 15.1 H Plt Count 160 Seg Neutrophils % Lymphocytes % Monocytes % Eosinophils % Basophils % Absolute Neutrophils Absolute Lymphocytes Absolute Monocytes Absolute Eosinophils Absolute Basophils Carbonic Acid HCO3/H2CO3 Ratio ABG pH ABG pCO2 ABG pO2 ABG HCO3 ABG O2 Saturation ABG Base Excess FiO2 Sodium Potassium Chloride Carbon Dioxide Anion Gap BUN Creatinine Est GFR ( Amer) Est GFR (Non-Af Amer) Glucose Calcium Impressions: Knee X-Ray 10/22/18 08:30 IMPRESSION: SATISFACTORY POSTOPERATIVE LEFT KNEE. Chest X-Ray 10/24/18 00:00 IMPRESSION: No acute cardiopulmonary findings. Lung Scan-VQ GA 10/24/18 08:46 IMPRESSION: NORMAL VENTILATION-PERFUSION LUNG SCAN. NEGATIVE FOR PULMONARY EMBOLI. Status: Imported from PACS Qualifiers - * PATIENT BEING DISCHARGED WITH ANY OF THE FOLLOWING DIAGNOSIS: No VTE patient discharged on overlapping Therapy?: Yes Acute Heart Failure - Is this a Heart Failure Patient?: No Plan Discharge Plan: Patient be discharged home with home health services and DME. Follow-up with Dr. Justin Mon [place] for surgery in 2 weeks for staple removal. Time Spent: Less than 30 Minutes
[2018-10-25] MEDS: ATORVASTATIN CALCIUM 80 MG TABLET PO SCH (10:02)
[2018-10-25] MEDS: ASPIRIN 81 MG TABLET, ENT COATED PO SCH (10:02)
[2018-10-25] MEDS: METOPROLOL TARTRATE 25 MG TABLET PO SCH (10:02)
[2018-10-25] MEDS: SENNOSIDES/DOCUSATE 8.6-50 MG 1 EACH TABLET PO SCH (10:02)
[2018-10-25] MEDS: PRENATAL VITAMIN W DHA CAPSULE PO SCH (10:02)
[2018-10-25] MEDS: PREGABALIN 75 MG CAPSULE PO SCH (10:02)
[2018-10-25 11:57] VITALS: BP 134/84
--- NOTE | 2018-10-25 15:38 | PDOC PROGRESS REPORT ---
Subjective Progress Note for:: 10/25/18 Subjective:: This is a 48-year-old male with a past medical history of SRINATH on BiPAP at home who was admitted under orthopedics for a left knee arthroplasty for chronic left knee arthritis. Hospital service was consulted due to an episode of hypoxia and tachycardia the other night. ABG showed hypercarbia. Chest x-ray was clear. A VQ scan was also pursued and was negative for PE. Patient is back to his baseline. No recurrence of hypoxia or tachycardia. He denies any chest pain or shortness of breath. His episode of hypoxia, hypercarbia and tachycardia are likely related to his opiate pain medications in the setting of his severe SRINATH. No objection for discharge. Recommend avoiding opiates or benzos in this patient. 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 Hospitalist service will be signing off. Reason For Visit: M17.12 UNILATERAL PRIMARY OSTEOARTHRITIS, LEFT KNE Physical Exam Vital Signs: Temp Pulse Resp BP Pulse Ox 98.8 F 100 20 139/84 H 92 10/25/18 07:00 10/25/18 07:00 10/25/18 07:00 10/25/18 07:00 10/25/18 07:00 Intake & Output 10/24/18 10/25/18 10/26/18 06:59 06:59 06:59 Intake Total 3451 2772 Output Total 250 500 Balance 3201 2272 Weight 240 lb 11.916 oz 243 lb 2.718 oz General appearance: PRESENT: no acute distress, well-developed, well-nourished Head exam: PRESENT: atraumatic, normocephalic Eye exam: PRESENT: conjunctiva pink, EOMI, PERRLA. ABSENT: scleral icterus Ear exam: PRESENT: normal external ear exam Mouth exam: PRESENT: moist, tongue midline Neck exam: ABSENT: carotid bruit, JVD, lymphadenopathy, thyromegaly Respiratory exam: PRESENT: clear to auscultation lorne. ABSENT: rales, rhonchi, wheezes Cardiovascular exam: PRESENT: RRR. ABSENT: diastolic murmur, rubs, systolic murmur Pulses: PRESENT: normal dorsalis pedis pul GI/Abdominal exam: PRESENT: normal bowel sounds, soft. ABSENT: distended, guarding, mass, organolmegaly, rebound, tenderness Rectal exam: PRESENT: deferred Neurological exam: PRESENT: alert, awake, oriented to person, oriented to place, oriented to time, oriented to situation, CN II-XII grossly intact. ABSENT: motor sensory deficit Results Laboratory Results: 10/25/18 05:13 10/24/18 07:10 10/25/18 05:13 WBC 7.6 RBC 3.24 L Hgb 9.2 L Hct 28.5 L MCV 88 MCH 28.3 MCHC 32.2 RDW 15.1 H Plt Count 160 Impressions: Knee X-Ray 10/22/18 08:30 IMPRESSION: SATISFACTORY POSTOPERATIVE LEFT KNEE. Chest X-Ray 10/24/18 00:00 IMPRESSION: No acute cardiopulmonary findings. Lung Scan-VQ NM 10/24/18 08:46 IMPRESSION: NORMAL VENTILATION-PERFUSION LUNG SCAN. NEGATIVE FOR PULMONARY EMBOLI. Assessment and Plan - Diagnosis (1) Acute respiratory failure with hypoxia and hypercapnia Is this a current diagnosis for this admission?: Yes Plan: Patient had transient episode of desaturation. His episode of hypoxia, hypercarbia and tachycardia are likely related to his opiate pain medications in the setting of his severe SRINATH. Chest x-ray was normal. VQ scan was negative for PE. No objection for discharge. Recommend avoiding opiates or benzos in this patient. 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 - Time Time Spent with patient: 15-24 minutes
== END 2018-10-25 13:15 | disposition home health service (06) | DRG 470 ==
LOC: INOR 10-22 05:27 → 4S 10-22 09:48
PROVIDERS: ADMIT Orthopaedic Surgery; ATTEND Orthopaedic Surgery
PROC: 0SRD0JA Replacement of Left Knee Joint with Synthetic Substitute, Uncemented, Open Approach (ICD-10-PCS; principal; 2018-10-22 07:30)
DX: M17.12 Unilateral primary osteoarthritis, left knee (principal); I10 Essential (primary) hypertension; I25.10 Atherosclerotic heart disease of native coronary artery without angina pectoris; G47.33 Obstructive sleep apnea (adult) (pediatric); I25.2 Old myocardial infarction; G40.909 Epilepsy, unspecified, not intractable, without status epilepticus; E78.00 Pure hypercholesterolemia, unspecified; K21.9 Gastro-esophageal reflux disease without esophagitis; Z82.49 Family history of ischemic heart disease and other diseases of the circulatory system; R09.02 Hypoxemia; R00.0 Tachycardia, unspecified; R06.89 Other abnormalities of breathing; T40.605A Adverse effect of unspecified narcotics, initial encounter; Y92.239 Unspecified place in hospital as the place of occurrence of the external cause; Z88.8 Allergy status to other drugs, medicaments and biological substances; Z79.899 Other long term (current) drug therapy
CPT/HCPCS: 01402; 36415; 71045; 78582; 80048; 82803; 85027; 88304; 88311; 93005; 93010; 94799; A9540; A9567; C1776; J0690; J1100; J1741; J2250; J2405; J2704; J3010; J3370; J3490; J7050; J7060; J7120; Q9969; S0119

== ENCOUNTER → 2019-05-01 | Outpatient (CLI) | payer OTHER, MEDICAID ==
--- NOTE | 2019-05-01 08:14 | RADIOLOGY REPORT (SQ) ---
EXAM DESCRIPTION: CHEST PA/LATERAL COMPLETED DATE/TIME: 05/01/2019 7:40 am REASON FOR STUDY: PRE-OP COMPARISON: 10/24/2018 EXAM PARAMETERS: NUMBER OF VIEWS: two views TECHNIQUE: Digital Frontal and Lateral radiographic views of the chest acquired. RADIATION DOSE: NA LIMITATIONS: none FINDINGS: LUNGS AND PLEURA: No opacities, masses or pneumothorax. No pleural effusion. MEDIASTINUM AND HILAR STRUCTURES: No masses or contour abnormalities. HEART AND VASCULAR STRUCTURES: Heart normal size. No evidence for failure. BONES: No acute findings. HARDWARE: None in the chest. OTHER: No other significant finding. IMPRESSION: NO SIGNIFICANT RADIOGRAPHIC FINDING IN THE CHEST. TECHNICAL DOCUMENTATION: JOB ID: [id number] 2010 [employer]- All Rights Reserved Reading location - IP/workstation name: [email or web address]
[2019-05-01 08:16] LABS: ABSOLUTE EOSINOPHILS # (AUTO) 0.1 10^3/uL (0.0-0.6); ABSOLUTE LYMPHOCYTES (AUTO) 2.1 10^3/uL (0.5-4.7); ABSOLUTE MONOCYTES (AUTO) 0.5 10^3/uL (0.1-1.4); ABSOLUTE NEUT (AUTO) 4.5 10^3/uL (1.7-8.2); BASOPHILS % (AUTO) 0.4 % (0-2); EOSINOPHILS % (AUTO) 1.7 % (0-6); HEMATOCRIT 37.7 % (37.9-51.0); HEMOGLOBIN 12.3 g/dL (13.5-17.0); LYMPHOCYTES % (AUTO) 29.2 % (13-45); MEAN CORPUSCULAR HEMOGLOBIN 27.7 pg (27.0-33.4); MEAN CORPUSCULAR HGB CONC 32.5 g/dL (32.0-36.0); MEAN CORPUSCULAR VOLUME 85 fl (80-97); PLATELET COUNT 240 10^3/uL (150-450); RED BLOOD COUNT 4.43 10^6/uL (4.35-5.55); RED CELL DISTRIBUTION WIDTH 14.6 % (11.5-14.0); SEGMENTED NEUTROPHILS % (AUTO) 61.7 % (42-78); TOTAL CELLS COUNTED % (AUTO) 100 %; WHITE BLOOD COUNT 7.2 10^3/uL (4.0-10.5)
[2019-05-01 08:20] LABS: APPEARANCE,URINE CLEAR; BILIRUBIN,URINE NEGATIVE (NEGATIVE); COLOR,URINE YELLOW; GLUCOSE, URINE NEGATIVE (NEGATIVE); KETONES,URINE NEGATIVE (NEGATIVE); LEUKOCYTE ESTERASE,URINE NEGATIVE (NEGATIVE); NITRITE,URINE NEGATIVE (NEGATIVE); PROTEIN,URINE NEGATIVE (NEGATIVE); URINE SPECIFIC GRAVITY 1.024; UROBILINOGEN,URINE NEGATIVE mg/dL (<2.0)
[2019-05-01 08:47] LABS: ANION GAP 8 (5-19); BLOOD UREA NITROGEN 14 mg/dL (7-20); CALCIUM 9.4 mg/dL (8.4-10.2); CARBON DIOXIDE 28 mmol/L (22-30); CHLORIDE 104 mmol/L (98-107); GLUCOSE 111 mg/dL (75-110); POTASSIUM 4.7 mmol/L (3.6-5.0)
--- NOTE | 2019-05-01 22:30 | EKG REPORT ---
SEVERITY:- ABNORMAL ECG - SINUS RHYTHM INCOMPLETE RIGHT BUNDLE BRANCH BLOCK INFERIOR INFARCT, AGE INDETERMINATE : Confirmed by: Che Leyva 01-May-2019 22:29:08
== END ==
LOC: OD 07:06
PROVIDERS: ATTEND Orthopaedic Surgery
DX: Z01.811 Encounter for preprocedural respiratory examination (principal); Z01.810 Encounter for preprocedural cardiovascular examination; Z01.812 Encounter for preprocedural laboratory examination; M17.11 Unilateral primary osteoarthritis, right knee; I10 Essential (primary) hypertension
CPT/HCPCS: 36415; 71046; 80048; 81001; 85025; 93005; 93010

== ENCOUNTER → 2019-05-21 | Outpatient (CLI) | payer OTHER, MEDICAID | LOC: OD 09:21 → EDSTATUS 06-03 07:30 | PROVIDERS: ATTEND Orthopaedic Surgery | DX: Z53.9 Procedure and treatment not carried out, unspecified reason (principal) ==

== ENCOUNTER → 2019-07-24 | Outpatient (CLI) | payer OTHER ==
[2019-07-24 08:16] LABS: ABSOLUTE EOSINOPHILS # (AUTO) 0.1 10^3/uL (0.0-0.6); ABSOLUTE LYMPHOCYTES (AUTO) 2.3 10^3/uL (0.5-4.7); ABSOLUTE MONOCYTES (AUTO) 0.5 10^3/uL (0.1-1.4); ABSOLUTE NEUT (AUTO) 4.4 10^3/uL (1.7-8.2); BASOPHILS % (AUTO) 0.5 % (0-2); EOSINOPHILS % (AUTO) 1.2 % (0-6); HEMATOCRIT 39.7 % (37.9-51.0); HEMOGLOBIN 13.3 g/dL (13.5-17.0); LYMPHOCYTES % (AUTO) 31.6 % (13-45); MEAN CORPUSCULAR HEMOGLOBIN 28.5 pg (27.0-33.4); MEAN CORPUSCULAR HGB CONC 33.5 g/dL (32.0-36.0); MEAN CORPUSCULAR VOLUME 85 fl (80-97); MONOCYTES % (AUTO) 6.8 % (3-13); PLATELET COUNT 233 10^3/uL (150-450); RED BLOOD COUNT 4.67 10^6/uL (4.35-5.55); SEGMENTED NEUTROPHILS % (AUTO) 59.9 % (42-78); TOTAL CELLS COUNTED % (AUTO) 100 %; WHITE BLOOD COUNT 7.3 10^3/uL (4.0-10.5)
--- NOTE | 2019-07-24 08:34 | EKG REPORT ---
SEVERITY:- ABNORMAL ECG - SINUS RHYTHM INCOMPLETE RIGHT BUNDLE BRANCH BLOCK PROBABLE INFERIOR INFARCT, AGE INDETERMINATE : Confirmed by: Che Leyva 24-Jul-2019 08:33:21
[2019-07-24 08:46] LABS: ANION GAP 9 (5-19); BLOOD UREA NITROGEN 9 mg/dL (7-20); CALCIUM 9.6 mg/dL (8.4-10.2); CARBON DIOXIDE 27 mmol/L (22-30); CHLORIDE 101 mmol/L (98-107); GLUCOSE 121 mg/dL (75-110); POTASSIUM 4.8 mmol/L (3.6-5.0)
[2019-07-24 09:13] LABS: ADD MANUAL MICROSCOPIC YES; APPEARANCE,URINE CLEAR; BILIRUBIN,URINE NEGATIVE (NEGATIVE); COLOR,URINE STRAW; GLUCOSE, URINE NEGATIVE (NEGATIVE); KETONES,URINE NEGATIVE (NEGATIVE); LEUKOCYTE ESTERASE,URINE NEGATIVE (NEGATIVE); NITRITE,URINE NEGATIVE (NEGATIVE); PROTEIN,URINE NEGATIVE (NEGATIVE); URINE SPECIFIC GRAVITY 1.014; UROBILINOGEN,URINE NEGATIVE mg/dL (<2.0)
[2019-07-24 09:14] LABS: RBC,URINE 0-1 /HPF; WBC,URINE 0-1 /HPF
--- NOTE | 2019-07-24 09:36 | RADIOLOGY REPORT (SQ) ---
EXAM DESCRIPTION: CHEST PA/LATERAL IMAGES COMPLETED DATE/TIME: 07/24/2019 8:04 am REASON FOR STUDY: PRE-OP COMPARISON: PA and lateral views of the chest from 05/01/2019. EXAM PARAMETERS: NUMBER OF VIEWS: two views TECHNIQUE: PA and lateral views of the chest were obtained RADIATION DOSE: NA LIMITATIONS: none FINDINGS: LUNGS AND PLEURA: No consolidation, pleural effusion or pneumothorax. MEDIASTINUM AND HILAR STRUCTURES: No mediastinal or hilar contour abnormality. HEART AND VASCULAR STRUCTURES: The cardiac silhouette and pulmonary vasculature are within normal rodriguez its. BONES: No acute findings. HARDWARE: None in the chest. OTHER: No other finding. IMPRESSION: No acute cardiopulmonary process. TECHNICAL DOCUMENTATION: JOB ID: [id number] 2010 [employer]- All Rights Reserved Reading location - IP/workstation name: [email or web address]
== END ==
LOC: OD 07:27
PROVIDERS: ATTEND Orthopaedic Surgery
DX: Z01.810 Encounter for preprocedural cardiovascular examination (principal); Z01.811 Encounter for preprocedural respiratory examination; Z01.812 Encounter for preprocedural laboratory examination
CPT/HCPCS: 36415; 71046; 80048; 81001; 85025; 93005; 93010

== ENCOUNTER 2019-08-19 06:47 | Inpatient (IN) | payer MEDICAID, OTHER ==
[~2019-08-19 06:47] MED LIST changes: +BUPIVACAINE INJ/PF LIPOSOME/PF 266 MG/20 ML SDV INJ PRN; +CEFAZOLIN INJ 1 GM VIAL IV PRN; +IBUPROFEN 800 MG in NORMAL SALINE 250 ML IV PRN; +LACTATED RINGERS 1000 ML IV PRN; +LIDOCAINE 0.5% INJ-PF (5 MG/ML) 50 ML SDV SUBCUT PRN; +OXYCODONE HCL SR 10 MG TABLET PO PRN; +PANTOPRAZOLE SODIUM 20 MG TABLET.DR PO PRN; -REGADENOSON INJ 0.4 MG/5 ML DISP.SYRIN IV ONE; +VANCOMYCIN HCL 1,000 MG in DEXTROSE 5%-WATER 250 ML IV PRN
[2019-08-19] MEDS ORDERED: CEFAZOLIN 1 GM/D5W RTU 0 GM/0 ML RTUPB IV ONE (07:37)
[2019-08-19] MEDS ORDERED: FENTANYL CITRATE INJ/PF 100 MCG/2 ML AMPUL ONE (07:40)
[2019-08-19] MEDS ORDERED: CEFAZOLIN INJ 1 GM VIAL ONE (07:40)
[2019-08-19] MEDS ORDERED: MIDAZOLAM 2 MG/2 ML INJ ONE ×2 (07:40→09:06)
[2019-08-19] MEDS ORDERED: ROPIVACAINE HCL 0.5% INJ/PF (5 MG/1 ML) 30 ML SDV ONE (07:43)
[2019-08-19] MEDS ORDERED: BUPIVACAINE HCL 0.25% /EPINEPHRINE INJ/PF 30 ML SDV ONE (08:36)
[2019-08-19] MEDS ORDERED: PROPOFOL INJ 200 MG/20 ML VIAL IV ONE (09:06)
[2019-08-19] MEDS ORDERED: TRANEXAMIC ACID INJ/PF 1,000 MG/10 ML SDV ONE ×3 (09:06→11:51)
[2019-08-19] MEDS ORDERED: ONDANSETRON HCL INJ/PF 4 MG/2 ML SDV ONE (09:06)
[2019-08-19] MEDS ORDERED: FENTANYL CITRATE INJ/PF 100 MCG/2 ML AMPUL IV PRN ×3 (09:24)
[2019-08-19] MEDS ORDERED: MORPHINE SULFATE 10 MG/ML INJ IV PRN (09:24)
[2019-08-19] MEDS ORDERED: DIPHENHYDRAMINE HCL 50 MG/ML VIAL IV PRN ×2 (09:24→10:41)
[2019-08-19] MEDS ORDERED: PROMETHAZINE HCL INJ 25 MG/1 ML VIAL IV PRN (09:24)
[2019-08-19] MEDS ORDERED: ONDANSETRON 4 MG TAB.RAPDIS PO PRN (10:41)
[2019-08-19] MEDS ORDERED: RINGERS SOLUTION,LACTATED 1,000 ML IV PRN (10:41)
[2019-08-19] MEDS ORDERED: ZOLPIDEM TARTRATE 5 MG TABLET PO PRN (10:41)
[2019-08-19] MEDS ORDERED: TRANEXAMIC ACID INJ/PF 1,000 MG/10 ML SDV IV ONE (10:41)
[2019-08-19] MEDS ORDERED: ONDANSETRON HCL INJ/PF 4 MG/2 ML SDV IV PRN (10:41)
[2019-08-19] MEDS ORDERED: ACETAMINOPHEN 325 MG TABLET PO PRN (10:41)
[2019-08-19] MEDS ORDERED: MAG HYDROX/AL HYDROX/SIMETH SUSP 30 ML UDCUP PO PRN (10:41)
--- NOTE | 2019-08-19 10:41 | Operative Report ---
Operative Report DATE OF SURGERY: 08/19/19 PREOPERATIVE DIAGNOSIS: Right knee arthritis OPERATION: Right knee arthroplasty SURGEON: NOAH BARROSO ANESTHESIA: Spinal TISSUE REMOVED OR ALTERED: Bone to pathology ESTIMATED BLOOD LOSS: 75 PROCEDURE: Implants used: Femur: Beto patinolon size 6 uncemented CR femur Tibia: 5 uncemented tibia Tibial liner: 9 mm CS insert Patella: 35 mm uncemented patella Procedure with the patient supine on the operating table the right the limb is prepped and draped in a sterile fashion. The limb was elevated for exsanguination and the tourniquet inflated to 280 torr. A standard midline median parapatellar approach the knee is taken. Access is gained to the femoral canal through the intercondylar notch. Intramedullary alignment instrumentation used to resect 10 mm of distal femur in 5 of valgus. Sizing guide indicated a size 6 femur. Appropriate cutting jig is then used to fashion anterior posterior and chamfer cuts. A trial reduction femurs performed and this is judged to be adequate. Attention was next turned to the tibia. Using an extra medullary alignment system 9 millimeters was resected off the lateral tibial plateau. This is sized to a size 5 tibia. A trial reduction was now performed with a 6 femur and a 5 tibia using a 9 millimeters spacer. It is full extension and central patellofemoral tracking. The articular surface the patella was next resected using an oscillating saw. All trial implants were removed. Both implants are impacted into position. The tourniquet was deflated hemostasis obtained the wound is then closed in layers using interrupted Vicryl followed by burt. A sterile compressive dressing was applied and the patient returned to recovery room in satisfactory condition.
--- NOTE | 2019-08-19 11:50 | RADIOLOGY REPORT (SQ) ---
EXAM DESCRIPTION: KNEE RIGHT 2 VIEWS IMAGES COMPLETED DATE/TIME: 08/19/2019 10:32 am REASON FOR STUDY: Post OP -Long Cassette in PACU M17.11 UNILATERAL PRIMARY OSTEOARTHRITIS, RIGHT KN EE COMPARISON: None NUMBER OF VIEWS: Two views TECHNIQUE: AP and lateral radiographic images acquired of the right knee. LIMITATIONS: None. FINDINGS: MINERALIZATION: Normal. BONES: Right knee arthroplasty with components in good alignment. No fracture, lytic or blastic bone lesion. JOINT: Expected postoperative changes in the joint space. SOFT TISSUES: Surgical burt. OTHER: No other significant finding. IMPRESSION: Right knee arthroplasty with components in good alignment. No evidence of hardware comp lication. Expected postoperative changes. TECHNICAL DOCUMENTATION: JOB ID: [id number] 2010 [employer]- All Rights Reserved Reading location - IP/workstation name: [email or web address]
[2019-08-19] MEDS: OXYCODONE HCL IR 5 MG TABLET PO PRN (17:31)
[2019-08-19] MEDS: ACETAMINOPHEN 325 MG TABLET PO SCH (17:31)
[2019-08-19] MEDS: SENNOSIDES/DOCUSATE 8.6-50 MG 1 EACH TABLET PO SCH (17:32)
[2019-08-19] MEDS: IBUPROFEN 800 MG in NORMAL SALINE 250 ML IV SCH (17:32)
[2019-08-19] MEDS: OXYCODONE HCL SR 10 MG TABLET PO SCH (22:32)
[2019-08-19] MEDS: METOPROLOL TARTRATE 50 MG TABLET PO SCH (22:32)
[2019-08-19] MEDS ORDERED: VANCOMYCIN HCL 1,000 MG in DEXTROSE 5%-WATER 250 ML IV ONE (23:00)
[2019-08-20] MEDS: IBUPROFEN 800 MG in NORMAL SALINE 250 ML IV SCH ×2 (02:34→10:02)
[2019-08-20 05:09] LABS: HEMATOCRIT 33.6 % (37.9-51.0); HEMOGLOBIN 11.1 g/dL (13.5-17.0); MEAN CORPUSCULAR VOLUME 88 fl (80-97); PLATELET COUNT 191 10^3/uL (150-450); RED BLOOD COUNT 3.82 10^6/uL (4.35-5.55); RED CELL DISTRIBUTION WIDTH 16.2 % (11.5-14.0); WHITE BLOOD COUNT 7.7 10^3/uL (4.0-10.5)
[2019-08-20 05:38] LABS: ANION GAP 5 (5-19); BLOOD UREA NITROGEN 15 mg/dL (7-20); CALCIUM 8.3 mg/dL (8.4-10.2); CARBON DIOXIDE 27 mmol/L (22-30); CHLORIDE 100 mmol/L (98-107); GLUCOSE 158 mg/dL (75-110); POTASSIUM 4.5 mmol/L (3.6-5.0)
[2019-08-20] MEDS ORDERED: PANTOPRAZOLE SODIUM 40 MG TABLET.DR PO SCH ×2 (06:00→10:00)
--- NOTE | 2019-08-20 06:56 | PDOC DISCHARGE SUMMARY ---
Impression - Admit/DC Date/PCP Admission Date/Primary Care Provider: 08/19/19 06:[facility] Discharge Date: 08/20/19 - Discharge Diagnosis (1) Arthritis of right knee Is this a current diagnosis for this admission?: Yes - Additional Information Resuscitation Status: Full Code Discharge Diet: Regular Discharge Activity: Balance Activity w/Rest, No Driving, No tub bath Referrals: NOAH ANDERSON MD [ACTIVE STAFF] - 09/03/19 10:00 am Home Medications: Aspirin [Adult Low Dose Aspirin EC] 81 mg PO DAILY 08/31/17 Metoprolol Tartrate [Lopressor 50 mg Tablet] 25 mg PO BID 08/31/17 Pantoprazole Sodium 40 mg PO DAILY 08/08/18 Atorvastatin Calcium [Lipitor 80 mg Tablet] 80 mg PO DAILY 08/09/18 Acetaminophen [Tylenol 325 mg Tablet] 325 mg PO BID 08/14/19 History of Present Illiness History of Present Illness: MYRNA MILTON is a 49 year old male 49-year-old white male with progressive right knee pain and functional disability second osteoarthritis. Patient is admitted for elective right knee arthroplasty. Hospital Course Hospital Course: Patient admitted through the operating where he undergoes an uncomplicated right knee arthroplasty. Is returned to the floor in satisfactory condition. He makes excellent progress with physical therapy on the day of surgery ambulating. Compressive dressings taken down on the first postoperative morning. Underlying OpSite dressing clean dry and intact. Patient is able to do a straight leg raise. Physical Exam Vital Signs: Temp Pulse Resp BP Pulse Ox 36.6 C 102 H 21 H 117/60 97 08/19/19 17:31 08/19/19 17:31 08/19/19 17:31 08/19/19 17:31 08/19/19 17:31 Intake & Output 08/18/19 08/19/19 08/20/19 06:59 06:59 06:59 Intake Total 2616 Output Total 625 Balance 1990 Weight 122.8 kg General appearance: PRESENT: obese Respiratory exam: PRESENT: unlabored Cardiovascular exam: PRESENT: RRR Vascular exam: PRESENT: normal capillary refill GI/Abdominal exam: PRESENT: soft Rectal exam: PRESENT: deferred Musculoskeletal exam: PRESENT: other - Right knee dressing clean dry and intact. Minimal pedal edema. Distal neurovascular examination is intact. Skin exam: PRESENT: dry, intact, warm. ABSENT: cyanosis, rash Results Laboratory Results: WBC 7.7 10^3/uL (4.0-10.5) 08/20/19 04:39 RBC 3.82 10^6/uL (4.35-5.55) L 08/20/19 04:39 Hgb 11.1 g/dL (13.5-17.0) L 08/20/19 04:39 Hct 33.6 % (37.9-51.0) L 08/20/19 04:39 MCV 88 fl (80-97) 08/20/19 04:39 MCH 29.0 pg (27.0-33.4) 08/20/19 04:39 MCHC 33.0 g/dL (32.0-36.0) 08/20/19 04:39 RDW 16.2 % (11.5-14.0) H 08/20/19 04:39 Plt Count 191 10^3/uL (150-450) 08/20/19 04:39 Sodium 132.1 mmol/L (137-145) L 08/20/19 04:39 Potassium 4.5 mmol/L (3.6-5.0) 08/20/19 04:39 Chloride 100 mmol/L (98-107) 08/20/19 04:39 Carbon Dioxide 27 mmol/L (22-30) 08/20/19 04:39 Anion Gap 5 (5-19) 08/20/19 04:39 BUN 15 mg/dL (7-20) 08/20/19 04:39 Creatinine 0.77 mg/dL (0.52-1.25) 08/20/19 04:39 Est GFR ( Amer) > 60 (>60) 08/20/19 04:39 Est GFR (MDRD) Non-Af > 60 (>60) 08/20/19 04:39 Glucose 158 mg/dL (75-110) H 08/20/19 04:39 Calcium 8.3 mg/dL (8.4-10.2) L 08/20/19 04:39 COVID-19 Source NASOPHARYNGEAL 08/14/19 09:23 COVID-19 (REY) NOT DETECTED 08/14/19 09:23 Blood Type A POSITIVE 08/19/19 09:07 Antibody Screen NEGATIVE 08/19/19 09:07 Impressions: Knee X-Ray 08/19/19 10:43 IMPRESSION: Right knee arthroplasty with components in good alignment. No evidence of hardware complication. Expected postoperative changes. Plan Plan of Treatment: Discharge home with home health services and DME. Follow-up with Dr. Anderson and [facility] for surgery in 2 weeks for staple removal. Time Spent: Less than 30 Minutes Stroke Is this a Stroke Patient?: No Stroke Pt being discharged on Anti-thrombolytic therapy?: Yes Acute Heart Failure - Is this a Heart Failure Patient?: No
[2019-08-20] MEDS ORDERED: PRENATAL VITAMIN W DHA CAPSULE PO SCH (10:00)
[2019-08-20] MEDS ORDERED: ASPIRIN 81 MG TABLET, ENT COATED PO SCH (10:00)
[2019-08-20] MEDS: METOPROLOL TARTRATE 50 MG TABLET PO SCH (10:43)
[2019-08-20] MEDS: OXYCODONE HCL SR 10 MG TABLET PO SCH (10:43)
[2019-08-20] MEDS: OXYCODONE HCL IR 5 MG TABLET PO PRN (10:44)
[2019-08-20] MEDS: SENNOSIDES/DOCUSATE 8.6-50 MG 1 EACH TABLET PO SCH (10:44)
[2019-08-20] MEDS: ACETAMINOPHEN 325 MG TABLET PO SCH (10:45)
[2019-08-20 11:05] VITALS: BP 120/70
[2019-08-20] MEDS ORDERED: ATORVASTATIN CALCIUM 80 MG TABLET PO SCH (22:00)
== END 2019-08-20 12:51 | disposition home health service (06) | DRG 470 ==
LOC: INOR 06:47 → 4W 12:14
PROVIDERS: ADMIT Orthopaedic Surgery; ATTEND Orthopaedic Surgery
PROC: 0SRC0JA Replacement of Right Knee Joint with Synthetic Substitute, Uncemented, Open Approach (ICD-10-PCS; principal; 2019-08-19 09:00)
DX: M17.11 Unilateral primary osteoarthritis, right knee (principal); I10 Essential (primary) hypertension; I25.10 Atherosclerotic heart disease of native coronary artery without angina pectoris; K21.9 Gastro-esophageal reflux disease without esophagitis; E78.00 Pure hypercholesterolemia, unspecified; G40.909 Epilepsy, unspecified, not intractable, without status epilepticus; I25.2 Old myocardial infarction; Z96.652 Presence of left artificial knee joint
CPT/HCPCS: 01402; 36415; 80048; 85027; 86850; 86900; 86901; 87635; 88305; 88311; 94799; C1776; J0690; J1741; J2250; J2405; J2704; J2795; J3010; J3370; J3490; J7050; J7060